=== PATIENT | male | born 1975 | race African-American/Black ===

== ENCOUNTER 2021-02-12 14:51 | Emergency (ER) | payer BC, SELFPAY ==
[2021-02-12 15:03] VITALS: BP 141/88; PULSE 98; RESP 18; TEMP 36.4; O2SAT 98
[2021-02-12 15:25] LABS: Glucose Point of Care 320 mg/dl (65-105)
[2021-02-12 15:50] LABS: Basophils Absolute Auto 0.1 K/mm3 (0.0-0.1); Basophils Percent Auto 0.7 % (0.2-1.2); Eosinophils Absolute Auto 0.3 K/mm3 (0-0.3); Eosinophils Percent Auto 4.2 % (0-4.4); Hemoglobin 13.9 g/dL (14.0-18.0); Immature Granulocyte Absolute 0.06 K/mm3 (0.00-0.031); Immature Granulocyte Percent A 0.8 % (0-0.5); Lymphocytes Absolute Auto 2.44 K/mm3 (0.9-3.2); Lymphocytes Percent Auto 34.1 % (18.3-44.2); Mean Corpuscular HGB Conc 34.8 g/dl (32-36); Mean Corpuscular Hemoglobin 27.8 pg (26-34); Mean Platelet Volume 10.3 fl (7.4-10.4); Monocytes Absolute Auto 0.5 K/mm3 (0.1-0.6); Monocytes Percent Auto 7.1 % (2.6-8.5); Neutrophils Absolute Auto 3.8 K/mm3 (1.3-6.7); Neutrophils Percent Auto 53.1 % (45.5-73.1); Platelet Count Result 205 k/mm3 (150-375); Red Cell Distribution Width 13.2 % (11.5-14.5); White Blood Count 7.2 K/mm3 (4.5-10.0)
--- NOTE | 2021-02-12 15:51 | ED.RECABL ---
HPI - Recheck/Abnormal Lab/Rx General Chief Complaint: Recheck/Abnormal Lab/Rx Stated Complaint: high blood sugar, nausea Time Seen by Provider: 02/12/21 15:15 Source: patient History of Present Illness HPI narrative: Patient presents with elevated blood sugar. Patient ports a history of diabetes on Metformin 1000 twice daily reports he ran out of his test strips about 2 weeks ago so has been able to monitor his blood sugar. Over the past 2 weeks has noted increased thirst and urinary symptoms. His symptoms have persisted he has been able to monitor his blood sugar over the past 2 days and noted his blood sugars in the 300-400 range. He was concerned so he came to the ER for evaluation. Reports mild diffuse abdominal pain denies any cough, congestion, fevers. Denies any pain with urination denies any recent changes to his medication. Related Data Home Medications Medication Instructions Recorded Confirmed atorvastatin 20 mg PO DAILY 02/12/21 02/12/21 lisinopril 20 mg PO DAILY 02/12/21 02/12/21 metformin 1,000 mg PO BID 02/12/21 02/12/21 Allergies Allergy/AdvReac Type Severity Reaction Status Date / Time No Known Allergies Allergy Verified 02/12/21 15:04 Review of Systems Review of Systems: CONSTITUTIONAL: Denies fever, chills, or sweats. EYES: Denies visual changes, redness, or discharge. ENT: Denies rhinorrhea, congestion, sore throat, or otalgia. CARDIOVASCULAR: Denies chest pain, palpitations, or edema. RESPIRATORY: Denies cough or dyspnea. GASTROINTESTINAL: Denies nausea, vomiting, or diarrhea. GENITOURINARY: Denies dysuria or hematuria. SKIN: Denies rash or itching. MUSCULOSKELETAL: Denies back pain, joint pain, or myalgia. NEUROLOGIC: Denies headache, numbness, dizziness, or weakness. PSYCHIATRIC: Denies anxiety or depression. All systems reviewed & are unremarkable except as noted in HPI and below PMFSH Past Medical History Medical History (Updated 02/12/21 @ 18:36 by Markel Barakat MD) Diabetes Social History Social History (Updated 02/12/21 @ 15:58 by Markel Barakat MD) Gender identity (if verbalized by the patient): Male Exam Narrative: GENERAL: Well-appearing, well-nourished, and in no acute distress. HEAD: Normocephalic, atraumatic. EYES: PERRLA and EOMI. ENT: Nares clear, no rhinorrhea or epistaxis. Mucous membranes moist. NECK: Supple. No masses. No JVD ABDOMEN: Soft, nontender, nondistended, normal active bowel sounds. EXTREMITIES: Normal range of motion. No edema. SKIN: Warm, dry, no rash. NEURO: No focal deficits. Alert and oriented x3. PSYCH: Normal mood and affect. Course Reevaluation(s) Reevaluation #1: Patient is feeling much improved labs without evidence of DKA. Patient is comfortable managing his symptoms at home. Attempted to contact medicine business division chair due to schedule close outpatient follow-up however there is no response from page. Patient did not want to wait for a response from the provider because he was feeling improved Date: 02/12/21 Time: 18:27 Vital Signs Vital signs: Vital Signs Temperature 36.4 C 02/12/21 15:03 Pulse Rate 98 02/12/21 15:03 Respiratory Rate 18 02/12/21 15:03 Blood Pressure 141/88 H 02/12/21 15:03 Pulse Oximetry 98 02/12/21 15:03 Temperature 36.4 C 02/12/21 15:03 Pulse Rate 68 02/12/21 18:56 Respiratory Rate 18 02/12/21 18:56 Blood Pressure 119/76 02/12/21 18:56 Pulse Oximetry 98 02/12/21 18:56 MDM - Recheck/Abnormal Lab/Rx MDM Narrative Medical decision making narrative: H&P as above, vss, pt looks clinically well, exam reassuring, labs with hyperglycemia no acidosis, additional labs/img considered, symptomatic relief available as needed, patient treated with fluids. On reevaluation pt continues to looks clinically well with downtrending glucose. Suspect isolated hyperglycemia without evidence of DKA, dns severe sepsis, severe dehydration, DKA, HHS. plan to tx/monitor as op w/ pcm f/u findings/pl
[2021-02-12 16:12] LABS: Alanine Aminotransferase 32 U/L (4-50); Albumin Level 4.6 g/dL (3.5-5.1); Alkaline Phosphatase 62 U/L (38-126); Anion Gap 9 mmol/L (8-16); Aspartate Amino Transferase 26 U/L (17-59); Bilirubin,Total 1.4 mg/dL (0.2-1.3); Blood Urea Nitrogen 13 mg/dL (9-20); Calcium 9.8 mg/dL (8.4-10.2); Carbon Dioxide 25 mmol/L (22-30); Chloride 97 mmol/L (98-107); Estimated CRCL calculation 121 ml/min; Estimated Glomerular Filt Rate > 60; Glucose 347 mg/dL (65-110); Magnesium 1.6 mg/dL (1.6-2.3); Phosphorus 3.4 mg/dL (2.5-4.5); Potassium 4.4 mmol/L (3.4-5.0); Sodium 131 mmol/L (137-145)
[2021-02-12 16:16] LABS: Beta-Hydroxybutyrate/Acetoacetate 0.74 mmol/L (0.02-0.27)
[2021-02-12 16:17] LABS: Add Urine Microscopic? YES; Appearance Urine Clear (Clear); Bilirubin Urine Negative (Negative); Blood Urine 2+ (Negative); Color Urine Straw (Yellow); Glucose Urine UA 3+ mg/dL (Negative); Ketones Urine Trace mg/dL (Negative); Leukocyte Esterase Ur Negative LEU/UL (Negative); Mucus Urine Rare /lpf; Nitrate Urine Negative (Negative); Protein Urine Negative (Negative); RBC Urine 0-2 /hpf (0-2); Specific Grav Ur 1.017 (1.001-1.035); Squamous Epithelial Cell Urine Rare /hpf (Few); Urobilinogen Urine Negative mg/dL (<2.0); WBC Urine 0-3 /hpf
[2021-02-12] MEDS: SODIUM CHLORIDE 0.9% IV 1,000 ML 999 ML IV CONT ×3 (16:22→16:23)
[2021-02-12 17:14] VITALS: BP 126/71; PULSE 93; RESP 16; O2SAT 100
[2021-02-12 17:44] LABS: Glucose Point of Care 219 mg/dl (65-105)
[2021-02-12 18:56] VITALS: BP 119/76; PULSE 68; RESP 18; O2SAT 98
== END 2021-02-12 18:58 | disposition home or self-care (01) ==
PROVIDERS: Emergency Provider Emergency Medicine
DX: E11.65 Type 2 diabetes mellitus with hyperglycemia (principal); Z79.84 Long term (current) use of oral hypoglycemic drugs
CPT/HCPCS: 36415; 80053; 81001; 82010; 82948; 83735; 84100; 85025; 96360; 99283; J7030

== ENCOUNTER 2022-02-04 11:19 | Emergency (ER) | payer BC, SELFPAY ==
--- NOTE | ~2022-02-04 | XR_ITS ---
EXAMINATION: XR wrist RT min 3V DATE: 02/04/2022 12:35 INDICATION: Right wrist pain post injury TECHNIQUE: Posteroanterior, ulnar deviation, oblique, and lateral views of the right wrist were obtai wendy. COMPARISON: none FINDINGS: 2 mm ulnar positive variance. Alignment is otherwise normal. No fracture. Joint spaces are normal. So ft tissues are unremarkable. IMPRESSION: 1. No acute osseous abnormality. Reviewed, dictated and finalized at location A. [facility]
--- NOTE | ~2022-02-04 | CT_ITS ---
EXAMINATION: CT brain wo con, CT facial bones wo con DATE: 02/04/2022 12:44 INDICATION: Trauma and facial injury TECHNIQUE: 1. Computed tomography (CT) of the head was performed without intravenous contrast. Sagittal and johnson nal reconstructions were obtained. The mA was adjusted according to patient size. Iterative reconstru ction technique was employed. The dose-length product was 605.33 mGy-cm. 2. CT of the facial bones and maxillofacial region was performed without intravenous contrast. Sagitt al and coronal reconstructions were obtained. Automated exposure control and iterative reconstruction technique were employed. The dose-length product was 778.65 mGy-cm. COMPARISON: None. FINDINGS: Head CT: Small right parietal scalp hematoma. No calvarial fracture. No acute intracranial hemorrhage, acute i nfarction or abnormal extra axial fluid collection. Ventricles are normal and symmetric. No mass/mass effect. Maxillofacial CT: No maxillofacial fractures. Specifically the mason of the orbits and paranasal sinuses, the zygomatic arches, mandible, nasal bones and pterygoid plates are intact. The midline nasal septum appears inta ct. Normal alignment and mild osteoarthritis at the bilateral temporomandibular joints. Orbits are no rmal. Mild mucosal thickening in the bilateral ethmoid and maxillary sinuses. The mastoid air cells a nd middle ear cavities are clear. Maxilla is edentulous with alveolar ridge resorption. There are als o multiple absent teeth along the mandible. Mild spondylosis in the visualized mid to upper cervical spine. Soft tissue contusions in the the lateral malleolar regions. IMPRESSION: 1. Normal brain. No acute intracranial process. 2. No calvarial or maxillofacial fractures. Reviewed, dictated and finalized at location A. NESS LAW PROFESSOR IMPRESSION: 1. Normal brain. No acute intracranial process. 2. No calvarial or maxillofacial fractures.
[2022-02-04 11:22] VITALS: BP 155/89; PULSE 98; RESP 16; O2SAT 99
[2022-02-04 11:31] LABS: Glucose Point of Care 233 mg/dl (65-105)
--- NOTE | 2022-02-04 12:27 | ED.GENADULT ---
HPI - General Adult General Chief complaint: Extremity Injury, Upper Stated complaint: facial injury Time Seen by Provider: 02/04/22 11:54 History of Present Illness HPI narrative: 46-year-old male presented to the emergency department for evaluation of a facial injury with possible loss of consciousness along with a wrist injury. Patient states he was working with a hammer drill when it jumped and struck him on the face. Patient states he suspects he had a brief period of loss of consciousness. Incident happened at approximately 1040 this morning. Related Data Home Medications Medication Instructions Recorded Confirmed atorvastatin 10 mg tablet 20 mg PO DAILY 02/12/21 02/12/21 lisinopril 10 mg tablet 20 mg PO DAILY 02/12/21 02/12/21 metformin 1,000 mg tablet 1,000 mg PO BID 02/12/21 02/12/21 Allergies Allergy/AdvReac Type Severity Reaction Status Date / Time No Known Allergies Allergy Verified 02/12/21 15:04 Review of Systems Review of Systems: CONSTITUTIONAL: Denies fever, chills, or sweats. EYES: Denies visual changes, redness, or discharge. ENT: Denies rhinorrhea, congestion, sore throat, or otalgia. CARDIOVASCULAR: Denies chest pain, palpitations, or edema. RESPIRATORY: Denies cough or dyspnea. GASTROINTESTINAL: Denies abdominal pain, nausea, vomiting, or diarrhea. GENITOURINARY: Denies dysuria or hematuria. SKIN: Abrasions to right side of face MUSCULOSKELETAL: Right wrist pain NEUROLOGIC: Denies headache, numbness, or weakness. PMFSH Past Medical History Medical History (Updated 02/04/22 @ 13:27 by Colton Avalos MD) Diabetes Social History Social History (Updated 02/12/21 @ 15:58 by Markel Barakat MD) Gender identity (if verbalized by the patient): Male Exam Narrative: APPEARANCE: Well appearing, no pain, no distress, well-nourished. HEAD: normocephalic, abrasions and contusions to right face. EYES: PERRLA/EOMI, conjunctivae clear. NOSE: Normal no drainage NECK: Supple. No adenopathy, no masses. RESPIRATORY: Airway patent, respirations nonlabored. Clear to auscultation bilaterally, no rales, rhonchi, wheezing. CARDIOVASCULAR: Regular rate and rhythm without murmurs rubs or gallops. ABDOMINAL: Soft, nontender, nondistended, normal bowel sounds MUSCULOSKELETAL: Moves all extremities. Limited range of motion of right wrist. Some tenderness to palpation. Mild swelling just proximal to the wrist. NEURO: Alert. Cranial nerves II through XII intact. Grossly intact SKIN: Warm, dry. Normal Color Course Course Emergency Course: Patient had negative CTs and negative wrist x-ray. Patient was able to ambulate in the emergency department without issue. Patient was encouraged of close follow-up with his primary care physician. All questions and concerns were addressed. Vital Signs Vital signs: Vital Signs Pulse Rate 98 02/04/22 11:22 Respiratory Rate 16 02/04/22 11:22 Blood Pressure 155/89 H 02/04/22 11:22 Pulse Oximetry 99 02/04/22 11:22 Oxygen Delivery Room Air 02/04/22 11:22 Pulse Rate 71 02/04/22 14:18 Respiratory Rate 16 02/04/22 14:18 Blood Pressure 118/75 02/04/22 14:18 Pulse Oximetry 99 02/04/22 14:18 Oxygen Delivery Room Air 02/04/22 11:22 Medical Decision Making Vital Signs Vital Signs: Vital Signs Pulse Rate 98 02/04/22 11:22 Respiratory Rate 16 02/04/22 11:22 Blood Pressure 155/89 H 02/04/22 11:22 Pulse Oximetry 99 02/04/22 11:22 Oxygen Delivery Room Air 02/04/22 11:22 Pulse Rate 71 02/04/22 14:18 Respiratory Rate 16 02/04/22 14:18 Blood Pressure 118/75 02/04/22 14:18 Pulse Oximetry 99 02/04/22 14:18 Oxygen Delivery Room Air 02/04/22 11:22 Lab Data Labs: Lab Results 02/04/22 Range/Units 11:28 POC Capillary Glucose 233 H (65-105) mg/dl Imaging Data Radiologist's impression: Impressions Face CT 02/04/22 12:54 IMPRESSION: 1. Normal brain. No acute intracr
--- NOTE | 2022-02-04 13:10 | PC.NURSE ---
Patient has a small laceration to the right side of his face by his eye after a piece of machinery hit him. Bleeding is controlled. Minor swelling noted. Patient also has some swelling to the right wrist/forearm.
[2022-02-04 13:18] VITALS: O2SAT 100
[2022-02-04 13:30] VITALS: O2SAT 99
[2022-02-04 13:47] VITALS: O2SAT 99
[2022-02-04 14:00] VITALS: O2SAT 98
[2022-02-04 14:18] VITALS: BP 118/75; PULSE 71; RESP 16; O2SAT 99
== END 2022-02-04 14:19 | disposition home or self-care (01) ==
LOC: ANHED 13:38
PROVIDERS: Emergency Provider Emergency Medicine
DX: S00.83XA Contusion of other part of head, initial encounter (principal); S69.91XA Unspecified injury of right wrist, hand and finger(s), initial encounter; E11.9 Type 2 diabetes mellitus without complications; Z79.84 Long term (current) use of oral hypoglycemic drugs; W29.8XXA Contact with other powered hand tools and household machinery, initial encounter
CPT/HCPCS: 70450; 70486; 73110; 82948; 99284

== ENCOUNTER 2022-04-22 07:47 | Emergency (ER) | payer BC, SELFPAY ==
--- NOTE | ~2022-04-22 | CT_ITS ---
EXAMINATION: CT lumbar spine wo con DATE: 04/22/2022 09:03 INDICATION: Low back pain TECHNIQUE: Computed tomography (CT) of the lumbar spine was performed without intravenous contrast. T he dose-length product (DLP) was 1347.56 mGy-cm. Iterative reconstruction was used. COMPARISON: None FINDINGS: Bone alignment is normal. There is no fracture. There is mild loss of intervertebral disc s pace height at L5-S1. Small degenerative osteophytes project from the anterior endplates of multiple vertebral bodies. Calcified atherosclerosis is noted. IMPRESSION: 1. Mild lumbar spondylosis without acute findings. Reviewed, dictated and finalized at location A. F SERVICE DISPATCHER
[2022-04-22 07:52] VITALS: BP 171/111; PULSE 87; RESP 20; TEMP 36.8; O2SAT 100
[2022-04-22] MEDS: HYDROcodone/acetaminophen (*CRX) 5-325 MG TABLET 1 TAB PO (08:23)
--- NOTE | 2022-04-22 09:23 | ED.BACK ---
HPI - Back Pain/Injury General Chief Complaint: Extremity Problem,Nontraumatic Stated Complaint: back pain Time Seen by Provider: 04/22/22 07:52 History of Present Illness HPI Narrative: Patient with history of spinal surgery for lumbar radiculopathy about 6 years ago presents with recurrence of his symptoms, he states has been ongoing for a few days, but yesterday got really bad, he has been taking ibuprofen with only minimal improvement, states that it seems to radiate from his lower back down his right leg, no numbness or tingling, no issues with urination or defecation. Denies any recent injury Related Data Home Medications Medication Instructions Recorded Confirmed atorvastatin 10 mg tablet 20 mg PO DAILY 02/12/21 02/12/21 lisinopril 10 mg tablet 20 mg PO DAILY 02/12/21 02/12/21 metformin 1,000 mg tablet 1,000 mg PO BID 02/12/21 02/12/21 Allergies Allergy/AdvReac Type Severity Reaction Status Date / Time No Known Allergies Allergy Verified 04/22/22 07:57 Review of Systems Review of Systems: CONST: No fever. HEENT: No sore throat C/V: No chest pain RESP: No cough GI: No abdominal pain : No dysuria. M/S: Low back pain down right leg SKIN: No rash. NEURO: [No headache or focal numbness or weakness] PSYCH: [No depression] [facility] Past Medical History Medical History (Updated 04/22/22 @ 09:27 by Thu Baeza MD) Diabetes Surgical History Surgical History (Updated 04/22/22 @ 09:27 by Thu Baeza MD) H/O lumbosacral spine surgery Social History Social History Gender identity (if verbalized by the patient): Male Exam Narrative: EXAMINATION OF ORGAN SYSTEMS/BODY AREAS: Constitutional: Vital signs per nursing GENERAL: Appears uncomfortable in bed HEAD: Normal with no signs of head trauma. EYES: EOMI, conjunctiva normal ENT: Hearing grossly intact LUNGS: Nonlabored breathing. HEART: [Regular rate and rhythm] ABD: [Soft], [nontender to palpation] EXT: Normal range of motion no elicitation of pain with movement of right leg SKIN: [No rashes or lesions.] NEURO: [Alert and oriented x 3. No gross focal sensory or strength deficits.] PSYCH: Normal affect Course Vital Signs Vital signs: Vital Signs Temperature 98.3 F 04/22/22 07:52 Pulse Rate 87 04/22/22 07:52 Respiratory Rate 20 04/22/22 07:52 Blood Pressure 171/111 H 04/22/22 07:52 Pulse Oximetry 100 04/22/22 07:52 Oxygen Delivery Room Air 04/22/22 07:52 Temperature 98.3 F 04/22/22 07:52 Pulse Rate 87 04/22/22 07:52 Respiratory Rate 20 04/22/22 07:52 Blood Pressure 171/111 H 04/22/22 07:52 Pulse Oximetry 100 04/22/22 07:52 Oxygen Delivery Room Air 04/22/22 07:52 MDM - Back Pain/Injury MDM Narrative Medical decision making narrative: ED COURSE AND MEDICAL DECISION MAKIN-year-old male with acute back pain radiating down right leg. Normal motor and sensory exam. Patient able to ambulate. No evidence of acute cord compression, osteomyelitis/discitis or cauda equina without saddle anesthesia, urinary retention/incontinence, numbness/tingling in lower extremities, fever, history of IV drug use, cancer or immunosuppression. Doubt AAA or aortic dissection without severe pain/discomfort or any neurovascular deficits. 5 mg [place] given for symptomatic relief. As he has had surgery in the lumbar spine in the past, I did obtain imaging. Does not show any acute abnormality. On reevaluation, the symptoms are improved. Patient is able to rest more comfortably. [I discussed management of acute back pain in detail, explaining the need to remain active and the goals of pain control.] Patient is given follow-up information to spine surgeon and primary care doctor, as well as return precautions and instructed to come back at any point in time for worsening pain, fevers, weakness, difficulty walking, urinary or fecal incontinence. Patient expressed understandin
[2022-04-22 09:56] VITALS: BP 138/81; PULSE 81; RESP 14; O2SAT 100
== END 2022-04-22 09:56 | disposition home or self-care (01) ==
PROVIDERS: Emergency Provider Emergency Medicine
DX: M54.16 Radiculopathy, lumbar region (principal); E11.9 Type 2 diabetes mellitus without complications
CPT/HCPCS: 72131; 99284; A9270

== ENCOUNTER 2023-11-02 10:20 | Emergency (ER) | payer BC, SELFPAY ==
[2023-11-02] VITALS (14 sets, daily range): BP systolic 117–133; BP diastolic 76–85; PULSE 81–103; RESP 15–18; TEMP 36.7–37; O2SAT 95–100
--- NOTE | ~2023-11-02 | CT_ITS ---
CT abdomen pelvis w con Ordering provider: Colton Avalos MD History: 47 years Male with . Suprapubic abdominal pain . Comparison: None. Technique: CT abdomen and pelvis with IV and without oral contrast. Automated exposure control and it erative reconstruction technique were employed. The dose-length product was 1349.60 mGy-cm. 100 mL Om nipaque 350 was given IV. Findings: VISUALIZED LOWER CHEST: Dependent atelectatic changes. UPPER ABDOMINAL ORGANS: Liver: Normal. CBD measures 3 mm. Gallbladder: Distended with thickened wall and tiny calcifications in the wall. Spleen: Normal. Stomach/duodenum: Normal. Pancreas: Prominent pancreatic duct. Follow-up advised. Adrenals: Normal. Kidneys: Right kidney upper pole small cyst. Small Cyst in the left kidney lower pole. PELVIC ORGANS: The bladder is underfilled. Evaluation for cystitis advised. BOWEL AND MESENTERY: Colon: No evidence of diverticulitis. Normal appendix. Small Bowel: Fluid filled loops of small bowel which may indicate enteritis but otherwise normal. No obstruction. Peritoneum/mesentery: No free air or free fluid. No mesenteric lymphadenopathy. RETROPERITONEUM: Mild atheromatous disease of the abdominal aorta. No retroperitoneal lymphadenopat hy. MUSCULOSKELETAL: Superficial soft tissues: The superficial soft tissues are normal. Bones: Age appropriate degenerative changes of the spine. Bilateral sacroiliitis. IMPRESSION: 1. Distended gallbladder with calcification seen in the wall. Follow-up advised. 2. No evidence of appendicitis, diverticulitis or intestinal obstruction. 3. Few osseous small bowel loops filled with fluid which may indicate enteritis. Diarrhea also is po ssible although less likely. 4. Slightly prominent pancreatic duct. Follow-up advised. Slightly prominent CBD Reviewed, dictated and finalized at location A. IMPRESSION: 1. Distended gallbladder with calcification seen in the wall. Follow-up advise d. 2. No evidence of appendicitis, diverticulitis or intestinal obstruction. 3. Few osseous small bowel loops filled with fluid which may indicate enteriti s. Diarrhea also is possible although less likely. 4. Slightly prominent pancreatic duct. Follow-up advised. Slightly prominent C BD
--- NOTE | 2023-11-02 12:13 | ED.ABDPAIN ---
HPI - Abdominal Pain General Chief Complaint: Abdominal Pain Stated Complaint: Lower abd pain Time Seen by Provider: 11/02/23 11:23 History of Present Illness HPI narrative: 47-year-old male presenting to the emergency department for evaluation for 1 week suprapubic abdominal pain. Patient does work as a hi low truck driver and states that when he presses the gas pedal it also hurts his abdomen. Patient denies any associated nausea or vomiting. Patient reports a possible history of cholelithiasis or kidney stones Related Data Home Medications Medication Instructions Recorded Confirmed atorvastatin 10 mg tablet 20 mg PO DAILY 02/12/21 02/12/21 lisinopril 10 mg tablet 20 mg PO DAILY 02/12/21 02/12/21 metformin 1,000 mg tablet 1,000 mg PO BID 02/12/21 02/12/21 Allergies Allergy/AdvReac Type Severity Reaction Status Date / Time No Known Allergies Allergy Verified 04/22/22 07:57 Review of Systems Review of Systems: All systems reviewed & are unremarkable except as noted in HPI and below PMFSH Past Medical History Medical History (Updated 11/02/23 @ 14:35 by Colton Avalos MD) Diabetes Surgical History Surgical History (Updated 04/22/22 @ 09:27 by Thu Baeza MD) H/O lumbosacral spine surgery Social History Social History Gender identity (if verbalized by the patient): Male Exam Narrative: APPEARANCE: Well appearing, no pain, no distress, well-nourished. HEAD: normocephalic, atraumatic. EYES: PERRLA/EOMI, conjunctivae clear. NOSE: Normal no drainage EARS:TMS clear with good light reflex. THROAT: Pharynx clear, no exudate. NECK: Supple. No adenopathy, no masses. RESPIRATORY: Airway patent, respirations nonlabored. Clear to auscultation bilaterally, no rales, rhonchi, wheezing. CARDIOVASCULAR: Regular rate and rhythm without murmurs rubs or gallops. ABDOMINAL: Suprapubic abdominal pain MUSCULOSKELETAL: Moves all extremities. Strength/ROM intact, No edema, No calf tenderness. NEURO: Alert. Cranial nerves II through XII intact. Grossly intact SKIN: Warm, dry. Normal Color Course Course Emergency Course: Patient was offered admission but declined. Vital Signs Vital signs: Vital Signs Temperature 98.6 F 11/02/23 10:40 Pulse Rate 81 11/02/23 10:40 Respiratory Rate 18 11/02/23 10:40 Blood Pressure 117/76 11/02/23 10:40 Pulse Oximetry 100 11/02/23 10:40 Oxygen Delivery Room Air 11/02/23 10:40 Temperature 98.0 F 11/02/23 11:46 Pulse Rate 84 11/02/23 15:50 Respiratory Rate 16 11/02/23 15:50 Blood Pressure 126/76 11/02/23 15:50 Pulse Oximetry 100 11/02/23 15:50 Oxygen Delivery Room Air 11/02/23 11:46 MDM - Abdominal Pain MDM Narrative Medical decision making narrative: 37-year-old male present to the emergency department for evaluation for lower abdominal pain. Patient is afebrile with no leukocytosis and a stable hemoglobin of 14.3. Patient has no acute abnormalities on his CMP T bili is mildly elevated at 1.9 and patient does have elevated glucose. Patient's lipase is elevated at 2458. Urine was negative for infection. CT abdomen pelvis showed 1. Distended gallbladder with calcification seen in the wall. Follow-up advised. 2. No evidence of appendicitis, diverticulitis or intestinal obstruction. 3. Few osseous small bowel loops filled with fluid which may indicate enteritis. Diarrhea also is possible although less likely. Patient was offered admission for treatment for his pancreatitis and patient declined. And re-examination patient has no reproducible abdominal tenderness to palpation. Patient states he does have follow-up on Sunday with his primary care physician. Patient was strongly encouraged to return to the emergency department if you have any worsening symptoms. Patient was advised to follow a clear liquid diet for the next few days and patient will be provided Zofran for nausea contro
[2023-11-02 12:19] LABS: Basophils Absolute Auto 0.1 K/mm3 (0.0-0.1); Basophils Percent Auto 0.9 % (0.2-1.2); Eosinophils Absolute Auto 0.4 K/mm3 (0-0.3); Eosinophils Percent Auto 5.6 % (0-4.4); Hematocrit 42.3 % (42.0-52.0); Hemoglobin 14.3 g/dL (14.0-18.0); Immature Granulocyte Absolute 0.03 K/mm3 (0.00-0.031); Immature Granulocyte Percent A 0.5 % (0-0.5); Lymphocytes Absolute Auto 2.05 K/mm3 (0.9-3.2); Lymphocytes Percent Auto 31.7 % (18.3-44.2); Mean Corpuscular HGB Conc 33.8 g/dl (32-36); Mean Corpuscular Hemoglobin 28.2 pg (26-34); Mean Corpuscular Volume 83.4 fl (80-100); Mean Platelet Volume 9.8 fl (7.4-10.4); Monocytes Absolute Auto 0.5 K/mm3 (0.1-0.6); Monocytes Percent Auto 8.2 % (2.6-8.5); Neutrophils Absolute Auto 3.4 K/mm3 (1.3-6.7); Neutrophils Percent Auto 53.1 % (45.5-73.1); Platelet Count Result 195 k/mm3 (150-375); Red Blood Count 5.07 M/mm3 (4.6-6.20); Red Cell Distribution Width 13.3 % (11.5-14.5); White Blood Count 6.5 K/mm3 (4.5-10.0)
[2023-11-02 12:20] LABS: Add Urine Microscopic? NO; Appearance Urine Clear (Clear); Bilirubin Urine Negative (Negative); Blood Urine Negative (Negative); Color Urine Yellow (Yellow); Glucose Urine UA 3+ mg/dL (Negative); Ketones Urine Negative (Negative); Leukocyte Esterase Ur Negative LEU/UL (Negative); Nitrate Urine Negative (Negative); Protein Urine Negative (Negative); Specific Grav Ur 1.015 (1.001-1.035); pH Urine 6.5 (5.0-9.0)
[2023-11-02 12:36] LABS: Alanine Aminotransferase 29 U/L (6-50); Albumin Level 4.2 g/dL (3.5-5.1); Alkaline Phosphatase 63 U/L (38-126); Anion Gap 9 mmol/L (4-12); Aspartate Amino Transferase 26 U/L (17-59); Bilirubin,Total 1.9 mg/dL (0.2-1.3); Blood Urea Nitrogen 12 mg/dL (9-20); Calcium 9.1 mg/dL (8.4-10.2); Carbon Dioxide 25 mmol/L (22-30); Chloride 102 mmol/L (98-107); Estimated CRCL calculation 84 ml/min; Estimated Glomerular Filt Rate > 60; Glucose 121 mg/dL (65-110); Potassium 4.3 mmol/L (3.4-5.0); Sodium 136 mmol/L (137-145)
[2023-11-02 12:50] LABS: Lipase 2458 U/L (23-300)
[2023-11-02] MEDS: SODIUM CHLORIDE 0.9% IV 1,000 ML 999 ML IV CONT (13:46)
[2023-11-02] MEDS: HYDROmorphone HCL INJ (*CRX) 1 MG/ML SYR 0.5 MG IV PUSH (13:46)
== END 2023-11-02 16:09 | disposition home or self-care (01) ==
PROVIDERS: Emergency Provider Emergency Medicine; PCP Family Medicine
DX: K85.90 Acute pancreatitis without necrosis or infection, unspecified (principal); R19.7 Diarrhea, unspecified; R10.30 Lower abdominal pain, unspecified; E11.9 Type 2 diabetes mellitus without complications; Z79.899 Other long term (current) drug therapy; Z79.84 Long term (current) use of oral hypoglycemic drugs; K82.8 Other specified diseases of gallbladder
CPT/HCPCS: 36415; 74177; 80053; 81003; 83690; 85025; 96361; 96374; 99284; J1170; J7030; Q9967

== ENCOUNTER 2023-11-04 18:38 | Emergency (ER) | payer BC, SELFPAY ==
--- NOTE | ~2023-11-04 | CT_ITS ---
EXAMINATION: CT abdomen pelvis w con DATE: 11/04/2023 21:15 INDICATION: Lower abdominal pain. TECHNIQUE: Computed tomography (CT) of the abdomen and pelvis was performed without intravenous contr ast. Automated exposure control and iterative reconstruction technique were employed. Exam dose: 151 8.09 mGy-cm total exam DLP. COMPARISON: 11/02/2023 CT abdomen pelvis FINDINGS: Borderline thickness of the gallbladder wall. No pericholecystic fluid or fat stranding. No bile duct or pancreatic duct dilatation. No hepatic, splenic, pancreatic mass lesion or pancreatic calcification. No CT evidence of pancreatit is. Normal morphology of the adrenal glands. 12 mm upper pole right renal cyst. 14 mm lower pole left renal cyst. No urinary tract calculi or hydr oureteronephrosis. Urinary bladder and prostate gland are unremarkable. Normal caliber and mild calcification of the abdominal aorta. No intraperitoneal or retroperitoneal o r pelvic mass lesion or adenopathy or ascites is detected. Normal appendix. No bowel obstruction, bowel wall thickening, pneumatosis or intraperitoneal free air. No suspicious osteolytic or osteoblastic lesions. IMPRESSION: Borderline thickness of the gallbladder wall No CT evidence of pancreatitis Bilateral renal cysts Normal appendix Reviewed, dictated and finalized at Location A. Reviewed, dictated and finalized at location J.
[2023-11-04 18:38] VITALS: BP 146/89; PULSE 78; RESP 14; TEMP 36.2; O2SAT 100
[2023-11-04 19:31] VITALS: BP 134/90; PULSE 81; RESP 18; O2SAT 100
[2023-11-04 20:25] LABS: Basophils Absolute Auto 0.1 K/mm3 (0.0-0.1); Basophils Percent Auto 0.8 % (0.2-1.2); Eosinophils Absolute Auto 0.4 K/mm3 (0-0.3); Eosinophils Percent Auto 5.1 % (0-4.4); Hematocrit 41.8 % (42.0-52.0); Hemoglobin 14.1 g/dL (14.0-18.0); Immature Granulocyte Absolute 0.03 K/mm3 (0.00-0.031); Immature Granulocyte Percent A 0.4 % (0-0.5); Lymphocytes Absolute Auto 2.64 K/mm3 (0.9-3.2); Lymphocytes Percent Auto 34.4 % (18.3-44.2); Mean Corpuscular HGB Conc 33.7 g/dl (32-36); Mean Corpuscular Hemoglobin 28.2 pg (26-34); Mean Corpuscular Volume 83.6 fl (80-100); Mean Platelet Volume 9.4 fl (7.4-10.4); Monocytes Absolute Auto 0.7 K/mm3 (0.1-0.6); Monocytes Percent Auto 9.4 % (2.6-8.5); Neutrophils Absolute Auto 3.8 K/mm3 (1.3-6.7); Neutrophils Percent Auto 49.9 % (45.5-73.1); Platelet Count Result 207 k/mm3 (150-375); Red Cell Distribution Width 12.9 % (11.5-14.5); White Blood Count 7.7 K/mm3 (4.5-10.0)
[2023-11-04 20:28] LABS: Add Urine Microscopic? NO; Appearance Urine Clear (Clear); Bilirubin Urine Negative (Negative); Blood Urine Negative (Negative); Color Urine Yellow (Yellow); Glucose Urine UA 3+ mg/dL (Negative); Ketones Urine Negative (Negative); Leukocyte Esterase Ur Negative LEU/UL (Negative); Nitrate Urine Negative (Negative); Protein Urine Negative (Negative); Specific Grav Ur 1.014 (1.001-1.035)
[2023-11-04 20:34] LABS: Alanine Aminotransferase 25 U/L (6-50); Albumin Level 4.1 g/dL (3.5-5.1); Alkaline Phosphatase 61 U/L (38-126); Anion Gap 8 mmol/L (4-12); Aspartate Amino Transferase 23 U/L (17-59); Bilirubin,Total 1.8 mg/dL (0.2-1.3); Blood Urea Nitrogen 5 mg/dL (9-20); Calcium 9.2 mg/dL (8.4-10.2); Carbon Dioxide 26 mmol/L (22-30); Chloride 104 mmol/L (98-107); Estimated CRCL calculation 91 ml/min; Estimated Glomerular Filt Rate > 60; Glucose 88 mg/dL (65-110); Lipase 1519 U/L (23-300); Potassium 3.9 mmol/L (3.4-5.0); Sodium 138 mmol/L (137-145)
[2023-11-04] MEDS: KETOROLAC 15 MG/ML VIAL (*BKC) IV PUSH (21:02)
[2023-11-04] MEDS: DICYCLOMINE HCL INJ 20 MG/2 ML VIAL IM (21:02)
--- NOTE | 2023-11-04 22:14 | ED.GENADULT ---
HPI - General Adult General Chief complaint: Abdominal Pain Stated complaint: pancreatitis Time Seen by Provider: 11/04/23 20:13 History of Present Illness HPI narrative: This is a 47-year-old ED with a chief complaint of lower abdominal pain. He was seen here 2 days ago and his workup was consistent with enteritis. He had a mildly elevated lipase although no clinical symptoms of pancreatitis like epigastric pain at that time. He was discharged with return precautions and placed on a liquid diet. Since then he has still been having some intermittent crampy lower abdominal pain is having watery diarrhea. No fevers chills chest pain breathing nausea or vomiting. The patient says he is very hungry. Related Data Home Medications Medication Instructions Recorded Confirmed atorvastatin 10 mg tablet 20 mg PO DAILY 02/12/21 02/12/21 lisinopril 10 mg tablet 20 mg PO DAILY 02/12/21 02/12/21 metformin 1,000 mg tablet 1,000 mg PO BID 02/12/21 02/12/21 Allergies Allergy/AdvReac Type Severity Reaction Status Date / Time No Known Allergies Allergy Verified 04/22/22 07:57 [facility] Past Medical History Medical History (Updated 11/04/23 @ 22:18 by Valetnin Bailon MD) Diabetes Surgical History Surgical History (Updated 04/22/22 @ 09:27 by Thu Baeza MD) H/O lumbosacral spine surgery Social History Social History Gender identity (if verbalized by the patient): Male Exam Narrative: APPEARANCE: No apparent distress. Head: atraumatic. EYES: EOMI, NOSE: Atraumatic NECK: Trachea midline RESPIRATORY: No increased rate of breathing clear to auscultation CARDIOVASCULAR: RRR, ABDOMINAL: Non-distended soft nontender no guarding or rebound MUSCULOSKELETAl: No obvious deformities NEURO: Alert. Moving 4/4 extremities SKIN:: Warm, dry. Normal color PSYCHIATRIC: Normal affect Course Vital Signs Vital signs: Vital Signs Temperature 97.1 F L 11/04/23 18:38 Pulse Rate 78 11/04/23 18:38 Respiratory Rate 14 11/04/23 18:38 Blood Pressure 146/89 H 11/04/23 18:38 Pulse Oximetry 100 11/04/23 18:38 Oxygen Delivery Room Air 11/04/23 18:38 Temperature 97.1 F L 11/04/23 18:38 Pulse Rate 81 11/04/23 19:31 Respiratory Rate 18 11/04/23 19:31 Blood Pressure 134/90 11/04/23 19:31 Pulse Oximetry 100 11/04/23 19:31 Oxygen Delivery Room Air 11/04/23 18:38 Medical Decision Making MDM Narrative Medical decision making narrative: -Course: 47-year-old male presenting to the ED for abdominal pain. Patient given Toradol and dicyclomine please pain. Repeat lab work showed an improving lipase. CT is unremarkable. Patient has no clinical signs of pancreatitis. Presentation consistent with enteritis given his diarrhea. Patient was informed of results and is requesting immediate discharge that he can go home and eat dinner. Patient discharged return precautions. Patient is requesting a work note. -DDX includes but is not limited to: Enteritis, pancreatitis, colitis UTI -Co-morbidities complicating care: Hypertension, diabetes -Independent interpretation of studies: Labs reviewed Lipase down trending. Liver enzymes normal. CT abdomen pelvis unremarkable -Interventions: Toradol, dicyclomine -Shared decision making / Disposition: Discharged Vital Signs Vital Signs: Vital Signs Temperature 97.1 F L 11/04/23 18:38 Pulse Rate 78 11/04/23 18:38 Respiratory Rate 14 11/04/23 18:38 Blood Pressure 146/89 H 11/04/23 18:38 Pulse Oximetry 100 11/04/23 18:38 Oxygen Delivery Room Air 11/04/23 18:38 Temperature 97.1 F L 11/04/23 18:38 Pulse Rate 81 11/04/23 19:31 Respiratory Rate 18 11/04/23 19:31 Blood Pressure 134/90 11/04/23 19:31 Pulse Oximetry 100 11/04/23 19:31 Oxygen Delivery Room Air 11/04/23 18:38 Lab Data 11/04/23 20:16 11/04/23 20:16 Labs: Lab R
[2023-11-04 22:40] VITALS: BP 137/80; PULSE 74; RESP 20; TEMP 36.7; O2SAT 100
== END 2023-11-04 22:45 | disposition home or self-care (01) ==
PROVIDERS: Physician Assistant; Emergency Provider Emergency Medicine; PCP Family Medicine
DX: K52.9 Noninfective gastroenteritis and colitis, unspecified (principal); E11.9 Type 2 diabetes mellitus without complications; Z79.84 Long term (current) use of oral hypoglycemic drugs; Z79.899 Other long term (current) drug therapy; N28.1 Cyst of kidney, acquired; R93.2 Abnormal findings on diagnostic imaging of liver and biliary tract
CPT/HCPCS: 36415; 74177; 80053; 81003; 83690; 85025; 96372; 96374; 99284; J0500; J1885; Q9967

== ENCOUNTER 2024-06-13 02:33 | Emergency (ER) | payer BC, SELFPAY ==
--- NOTE | ~2024-06-13 | US_ITS ---
EXAMINATION: US abdomen limited DATE: 06/13/2024 07:51 INDICATION: Abdominal pain. TECHNIQUE: Multiple grayscale and Doppler ultrasound images of the abdomen were obtained. COMPARISON: CT abdomen and pelvis 06/13/2024, 11/04/23 FINDINGS: The pancreas is obscured by bowel gas. The liver is normal without focal lesion. There is n ormal flow in main portal vein. The gallbladder is distended and contains gallstones. Gallbladder wal l thickening is noted. There is no sonographic Brown's sign. The common duct is normal and measures 5 mm. IMPRESSION: 1. Distended gallbladder with gallstones and gallbladder wall thickening, which are chronic findings and may be chronic cholecystitis. No sonographic Brown's sign to suggest acute cholecystitis. Consid er hepatobiliary scintigraphy. Reviewed, dictated and finalized at location A. IMPRESSION: 1. Distended gallbladder with gallstones and gallbladder wall thickening, which are chronic findings and may be chronic cholecystitis. No sonographic Brown's sign to suggest acute cholecystitis. Consider hepatobiliary scintigraphy.
--- NOTE | ~2024-06-13 | CT_ITS ---
EXAMINATION: CT abdomen pelvis w con DATE: 06/13/2024 04:02 INDICATION: Low abdominal pain. Pelvic pain. TECHNIQUE: Computed tomography (CT) of the abdomen and pelvis was performed with 100 mL Omnipaque 350 intravenous contrast. Automated exposure control and iterative reconstruction technique were employe d. The dose-length product was 1797.80 mGy-cm. COMPARISON: CT abdomen and pelvis 11/04/2023 FINDINGS: The visualized portions of the lung bases demonstrate minimal atelectasis on the right. No pleural effusion. The heart size is normal. No pericardial effusion. There are coronary artery calcif ications. There is bilateral gynecomastia. The liver and spleen are normal. Again seen is gallbladder distention. Again seen is wall thickening of the gallbladder with calcifications (porcelain gallblad attila). The pancreas and adrenal glands are normal. There are cysts in the kidneys measuring up to 16 m m on the left. There are no dilated loops of bowel. The appendix is normal. There are no pathological ly enlarged lymph nodes. There is no free intraperitoneal fluid. There is mild thoracic and lumbar sp ondylosis. IMPRESSION: 1. Porcelain gallbladder. Gallbladder distention again seen, which may be acute or chronic cholecysti tis. Reviewed, dictated and finalized at location A. IMPRESSION: 1. Porcelain gallbladder. Gallbladder distention again seen, which may be acute or chronic cholecystitis.
--- OUTSIDE RECORDS SUMMARY | 2024-06-13 02:35 | XMS_ITS | Referral Summary ---
Author Organization [facility] Address [address] [place] [address] Phone Care Team Providers Care Flow Manager Name Role Phone Shama Patel NP Unavailable Jordy Parra MD Primary Care Provider [phone] Claribel Valentin MD Unavailable [phone] Jacque Franks OD Unavailable [phone] Encounters Date Type Department Care Team Description 05/15/[address] [facility] [address] [place] [address] Arnel Carter II, MD 04/11/[address] [facility] [address] [place] [address] [address] [place] [address] Yareli Ojeda MA 04/03/2024 10:00 AM FERMENTOLOGIST Office Visit [facility] [place] [address] [place] [address] Michele Gong NP Neck pain, bilateral (Primary Dx); Mass of right lower leg 04/03/2024 Patient Self-T[address] [facility] [address] [place] [address] Mychart, Generic Provider from Last 3 Months Allergies Active Allergy Reactions Criticality Noted Date Comments Dulaglutide Rash Medium 03/20/2021 Medications blood glucose diagnostic (glucose blood) strip Use to check blood sugar 3 times daily 100 each 5 01/04/20 22 Active pen needle, diabetic (BD Ultra-Fine Short Pen Needle) 31 gauge x 5/16 needle USE EVERY DAY TO FOUR TIMES DAILY DIRECTED 100 each 11 03/21/19 23 Active FreeStyle Tammy 3 Sensor deviceIndicatio ns:Type 2 diabetes mellitus with other circulatory complication, with long-term current use of insulin (HCC) One sensor every 14 days 2 each 11 05/11/19 24 Active lisinopriL (PRINIVIL,ZESTR [place]) 20 mg tabletIndicatio ns:Essential hypertension TAKE 1 TABLET(20 MG) BY MOUTH DAILY 90 tablet 3 08/01/19 24 Active atorvastatin (LIPITOR) 20 mg tabletIndicatio ns:Type 2 diabetes mellitus with nephropathy (HCC) Take 1 tablet (20 mg total) by mouth daily 90 tablet 11/30/19 24 Active tirzepatide (Mounjaro) 10 mg/0.5 mL pen injectorIndicat ions:Type 2 diabetes mellitus with other circulatory complication, with long-term current use of insulin (HCC) Inject 10 mg under the skin once a week 2 mL 5 02/29/20 24 Active ibuprofen (ADVIL,MOTRIN) 600 mg tablet Take 1 tablet (600 mg total) by mouth every 6 (six) hours as needed for pain 30 tablet 03/03/20 24 Active methylPREDNISol one (MEDROL DOSEPACK) 4 mg DosepackIndicat ions:Neck pain, bilateral Take 6 tabs on day 1, reduce dose by 1 daily until prescription is complete. 1 packet 04/03/19 25 Active cyclobenzaprine (FLEXERIL) 5 mg tabletIndicatio ns:Neck pain, bilateral Take 1 tablet (5 mg total) by mouth 3 (three) times a day as needed for muscle spasms for up to 3 days 9 tablet 04/03/19 25 Active dapagliflozin propanediol (FARXIGA) 10 mg tablet TAKE 1 TABLET(10 MG) BY MOUTH DAILY 90 tablet 3 06/03/19 25 Active dapagliflozin propanediol (Farxiga) 10 mg tablet TAKE 1 TABLET(10 MG) BY MOUTH DAILY 90 tablet 05/31/19 25 Active Farxiga 10 mg tablet 03/06/20 24 2024 Discontinued Active Problems Problem Noted Date Diagnosed Date Establishing care with new doctor, encounter for 05/07/2023 Assessment & Plan (05/07/2023 11:39 AM FERMENTOLOGIST): A(n) initial visit to establish care has been performed today. Clinton Osorio is not up to date on screening tests. He is in need of Diabetic eye exam, Prostate screening, Diabetic kidney disease screening, and Cholesterol screening. He is not up to date on needed preventative vaccinations; He is in need of Covid-19 (booster). We discussed healthy lifestyle habits, educational material has been given. Medications reviewed, changes documented as per the medical record and discussed with patient along with risks vs benefits. Return in 6 months Hyperlipidemia associated with type 2 diabetes thanh sylvester 04/26/2022 Assessment & Plan (02/29/2024 11:46 AM FERMENTOLOGIST): Patient on statin therapy Tolerating well Assessment & Plan (08/02/2023 11:07 AM CDT): Patient on statin therapy Tolerating well Assessment & Plan (01/03/2023 10:35 AM CDT): Patient on statin therapy Tolerating well Assessment & Plan (08/21/2022 7:40 PM CDT): Patient on statin therapy Tolerating well Assessment & Plan (04/26/2022 12:59 PM FERMENTOLOGIST): Patient on statin therapy Tolerating well Uncontrolled type 2 diabetes mellitus with hyper glycemia 01/03/2022 Assessment & Plan (04/09/2022 7:57 PM FERMENTOLOGIST): Labs today. Continue current Toujeo, Humalog, metformin. Some concerns for dietary intake are noted. Declining use of Tammy. Consideration for endocrinology referral. Eye exam is up-to-date. Assessment & Plan (01/03/2022 5:07 PM CDT): Home readings have been up into the 500s. Dietary monitoring is minimally observed at this time. Counseled. Advised patient to continue Humalog 8 units t.i.d. with meals. Increase Toujeo to 20 units at bedtime. Anticipate 5 unit changes every 3 days until blood sugars are underneath 200. Right rotator cuff tendinitis 07/12/2021 Assessment & Plan (01/03/2022 5:07 PM CDT): Chronic. Intermittent use of naproxen recommended. CMP is ordered. Assessment & Plan (07/12/2021 11:06 AM CDT): Patient's history exam is consistent with rotator cuff tendinitis. With his elevated blood sugars and high insulin needs the patient most likely is a poor candidate for cortisone injections. Majority these cases still can be treated with conservative measures and have prescribed physical therapy. If he is having persistent issues following a concerted rotator cuff rehab program other treatment may need to be considered. Some individuals required decompressive surgery Acute left-sided low back pain with left-sided s ciatica 07/06/2021 Assessment & Plan (05/28/2022 12:31 PM CDT): Improving. Resolution of radicular pain. Has not seen PT. Assessment & Plan (07/06/2021 9:36 PM CDT): Resume use of flexeril 10 mg daily, heat, naproxen. Hold ibuprofen while taking naproxen. Ortho. Imaging. Family history of colon cancer 10/28/2018 Assessment & Plan (06/18/2020 6:47 AM CDT): Had colonoscopy completed with Dr. Winn 01/23/2020. + polyps. Was recommend to have in 10 yr. Assessment & Plan (03/17/2019 10:15 PM FERMENTOLOGIST): Needs to schedule colonoscopy. Counseled. Assessment & Plan (11/03/2018 9:35 PM CDT): Colonoscopy and GI consult ordered. Type 2 diabetes mellitus with nephropathy 2018 Assessment & Plan (01/03/2022 5:07 PM CDT): Labs as ordered. Continue lisinopril 20. Assessment & Plan (05/15/2021 6:28 PM FERMENTOLOGIST): Labs today. Continue current lisinopril 20. Assessment & Plan (06/18/2020 6:47 AM CDT): A1C 9.3 in office today. Newly worsening. Added lalitaelainejamal. Hx of balanitis in the past month. Does not want to do injections. He is needing his eye exam. He has referral information. Carb/dietary counseling provided. Labs pending. Assessment & Plan (01/11/2020 11:41 PM CDT): Labs today. Continue current. Assessment & Plan (11/03/2018 9:36 PM CDT): Improving. Continue to work on sugar restriction, wt loss. Need eye exam. Onychomycosis 07/02/2017 Assessment & Plan (06/18/2020 6:46 AM CDT): Unchanged. No further worsening. Assessment & Plan (05/04/2018 7:09 PM FERMENTOLOGIST): Podiatry referral offered has info. Assessment & Plan (07/02/2017 9:32 AM CDT): Great toes bilaterally. Also noted to have linear pattern across instep of bilateral feet. OTC ketocaonzole powder/lotrimin recommended. Class 2 severe obesity due t o excess calories with serious comorbidity and body mass index (BMI) of 37.0 to 37.9 in adult 02/21/2017 Assessment & Plan (02/29/2024 11:47 AM FERMENTOLOGIST): Chronic, worsening Discussed about healthy lifestyle habits advise to work on healthy diet, avoid processed foods , increase vegetables and protein and cut back on carb portions and also avoid fruit juices and regular soda and desserts Increase physical activity , recommend at least 150 min of aerobic activity per week and include resistance training 2 x weekly Advised to work on stress management Assessment & Plan (08/02/2023 11:07 AM CDT): Chronic, stable but still above goal Discussed with patient regarding healthy lifestyle habits Start exercising every day 30-40 min in morning Work on calorie deficit diet as we discussed to help fat loss Assessment & Plan (05/07/2023 11:43 AM FERMENTOLOGIST): BMI Follow-up includes: nutrition counseling, exercise counseling, and education provided. Assessment & Plan (01/03/2023 10:36 AM CDT): Chronic, still above goal, slowly improving Counseled on diet and exercise Assessment & Plan (08/21/2022 7:40 PM CDT): Counseled on diet and exercise Assessment & Plan (04/26/2022 12:58 PM FERMENTOLOGIST): Counseled on diet and exercise Assessment & Plan (04/09/2022 7:56 PM FERMENTOLOGIST): Worsening. Body mass index is 42.53 kg/m . BMI Follow-up includes: nutrition counseling, exercise counseling and education provided. Assessment & Plan (01/03/2022 5:05 PM CDT): Improving. Body mass index is 41.48 kg/m . BMI Follow-up includes: education provided. Assessment & Plan (07/06/2021 2:17 PM CDT): Body mass index is 42.97 kg/m . Worsening. Counseled on follow-up with bariatrician. Referral provided. Will attempt victoza-shorter half life and had localized reaction to trulicity. Counseled pt. Assessment & Plan (05/10/2021 9:17 AM FERMENTOLOGIST): Body mass index is 42.38 kg/m . Up 2 lb since ROMEO. Off of trulicity due to rash. He has been limiting carbs, but not counting. Counseled. Assessment & Plan (03/07/2021 5:35 PM FERMENTOLOGIST): Body mass index is 42.15 kg/m . reports at home he is down 176. Still struggling to determine what he can or cannot be. Has not utilized [place] [employer] website to assist with meal planning. Counseled. Assessment & Plan (02/22/2021 6:36 AM FERMENTOLOGIST): Wt loss con't 2 lb. Struggling to determine dietary intake appropriate for diabetes. Working with travel pta. Again given carb intake recommendations for snack/meal/proteins. Assessment & Plan (02/14/2021 7:13 PM FERMENTOLOGIST): BMI Follow-up includes: nutrition counseling. Body mass index is 41.79 kg/m . Assessment & Plan (12/08/2020 5:49 AM CDT): Body mass index is 42.97 kg/m . BMI Follow-up includes: nutrition counseling and education provided. Assessment & Plan (06/18/2020 6:45 AM CDT): BMI Follow-up includes: education provided. Assessment & Plan (10/08/2019 11:59 AM CDT): Asking about ketogenic diet. Advised no more than 100 g/day of protein-recommend modified with vegetables. Aware of risk/benefit. Assessment & Plan (03/17/2019 10:11 PM FERMENTOLOGIST): Worsening. Recommend healthy varied diet with minimal processed foods, increased amounts of fruits and vegetables and low fat and cholesterol levels-no fried, high fat or high sugar foods. Avoidance of faroese fried and other fried foods to start. Assessment & Plan (10/28/2018 3:10 PM CDT): Improving. Not eating concentrated sweets. Continue. Assessment & Plan (05/04/2018 7:11 PM FERMENTOLOGIST): Obesity is worsening. BMI Follow-up includes: nutrition counseling, exercise counseling, education provided and referral to travel pta. Assessment & Plan (10/31/2017 6:08 PM CDT): Obesity is unchanged. Reports some stress. Is trying to adjust diet. Exercise recommended outside of work. Assessment & Plan (07/02/2017 9:30 AM CDT): Obesity is improving with lifestyle modifications. Lost 11 lb since ROMEO. Encouraged to exercise outside of work. Assessment & Plan (03/28/2017 9:38 AM FERMENTOLOGIST): RACHEL saxena, my fitness pal reviewed. Instructed to increase physical activity-portions control. Assessment & Plan (02/21/2017 5:42 PM FERMENTOLOGIST): Obesity is newly identified. walking at work.Portion control discussed. 1800 gregg diet. Informal exercise measures discussed, e.g. taking stairs instead of elevator. Handouts provided. My fitness pal and calorie counter ap discussed-opened in ov. Type 2 diabetes mellitus wit h circulatory disorder, with long-term current use of insulin 03/19/2015 Assessment & Plan (02/29/2024 11:47 AM FERMENTOLOGIST): Chronic, overall well controlled A1c 4.9% Reviewed freestyle Tammy 3 download Blood sugar target range 100% No hypoglycemia noted and no hyperglycemia noted Stop Farxiga Continue Mounjaro to 10 mg subcu weekly Advised to work on stress management Counseled on in healthy lifestyle habits Follow-up in 6 months Assessment & Plan (08/02/2023 11:08 AM CDT): Chronic, significant improvement in control A1c 4.9% Reviewed freestyle Tammy 3 download Blood sugar target range 100% No hypoglycemia noted and no hyperglycemia noted Stop metformin XR Plan to increase Mounjaro to 10 mg subcu weekly Continue Farxiga 10 mg oral daily Counseled on in healthy lifestyle habits Recommend to make an eye exam appointment as soon as possible Follow-up in 6 months Assessment & Plan (01/03/2023 10:37 AM CDT): Chronic, overall well controlled A1c 5.2% Reviewed CGM download 100% in target range No hypoglycemia noted Plan to decrease metformin XR 500 mg 2 tablets oral daily Continue Mounajro 5 mg subQ weekly Continue Farxiga 10 mg oral daily Recommend annual dilated eye exam Counseled on diet and exercise daily foot care Follow-up in 6 months Assessment & Plan (08/21/2022 7:43 PM CDT): Chronic , improving control A1c - 5.9 % - counseled on diet and exercise - stop Humalog - keep taking farxiga the same - start taking Metformin Xr 500 mg - 4 tablets oral daily - decrease Toujeo 20 units SQ daily Start Mounjaro 2.5 mg SQ weekly for 4 weeks Than after 4 weeks - stop Toujeo insulin Increase Mounjaro to 5 mg SQ weekly Assessment & Plan (04/26/2022 12:59 PM FERMENTOLOGIST): Chronic, , uncontrolled, worsening A1c 8.3% Counseled on diet and exercise Sent in prescription for freestyle Tammy 3 adjusted Toujeo to 40 units SQ daily at bedtime Start Farxiga 10 mg oral daily Adjusted Metformin XR to 500 mg - 2 tab oral twice daily with meals Advised to make an eye exam appointment Daily foot care Advised good oral hydration Follow-up in 3 months Assessment & Plan (04/09/2022 7:59 PM FERMENTOLOGIST): Continue Toujeo 20 units q.a.m. 10 units q.h.s.. Reports that he is using sliding scale Humalog-usually is taking 8 units t.i.d.. Using metformin extended 750 daily. (Humalog SIG BLOOD GLUCOSE> 200-4 UNITS FOR EVERY 50 OVER 200 ADD 1 UNITS ADDITIONAL, EX BLOOD GLUCOSE 300=6 UNITS; CHECK THREE TIMES DAILY Max 45 un/day). Labs are ordered. Strong suspicion patient need Endocrinology discussion he is unsure of taking medications-would like to get off. Assessment & Plan (01/03/2022 5:07 PM CDT): Advised patient to continue Humalog 8 units t.i.d. with meals. Increase Toujeo to 20 units at bedtime. Anticipate 5 unit changes every 3 days until blood sugars are underneath 200. Hyperglycemia with symptoms as noted. Eye exam is up-to-date. A1c is ordered. Assessment & Plan (07/06/2021 2:17 PM CDT): A1C in office 7.8. Up on toujeo to 18 units and add victoza 0.6 mg daily. Watch for reaction. Carb counting-he was eating 1/2 pineapple for a snack. Awareness encouraged. He is making progress. Assessment & Plan (05/15/2021 6:29 PM FERMENTOLOGIST): Labs today. Continue current toujeo 6 un, sliding scale novolin, and metformin will be changed to er due to continued diarrhea. Stopped GLP1 due to rash at site- true hive. Will discuss with pharmacist to determine cross-believe all in class will cause similar. Assessment & Plan (03/07/2021 5:37 PM FERMENTOLOGIST): Decreased toujeo from 10 to 5 units at bedtime. He is still using sliding scale. Blood sugars are ranging between 100 and 150 on average. A1c will be in April. Some nausea is noted over the past week. Also reports headache a new ear pain. Suspect that this is all related to otitis as opposed to Trulicity. Patient will notify if there is continued concern after use of antibiotic. Assessment & Plan (02/22/2021 6:35 AM FERMENTOLOGIST): Improving. Not to goal. Blood sugar into the 260s fbg and lowest 160. Start toujeo 10 un nightly. Con't SSI. Con't metformin and trulicity. Assessment & Plan (02/14/2021 5:10 PM FERMENTOLOGIST): Newly worsening. Counseled carb should be no more than 45 g per meal and 15 g per snack. Monitor blood sugars t.i.d.. Start: Sliding scalensulin lispro (HumaLOG) 100 unit/mL pen for injection; SSI: BG >200-4 units, for every 50 over 200 add 1 units additional;ex bg 300=6 units; check TID; max dose is 30 un/day - dulaglutide (TRULICITY) 1.5 mg/0.5 mL pen injector; Inject 0.5 mL (1.5 mg total) under the skin every 7 days (4 pens at a time) - pen needle, diabetic 31 gauge x 5/16 needle; Use to inject 1-4 times daily as directed. he is to continue metformin. Assessment & Plan (12/08/2020 5:50 AM CDT): Labs today. Continue current metformin 1000 mg b.i.d. as well as working with dietitian to determine exchanges. Encouraged if needing to eat out-utilize ap to determine nutritional intake into attempt to consume less 500 calories per meal.(restaurant food). Assessment & Plan (06/18/2020 6:45 AM CDT): A1C 9.3 in office today. Newly worsening. Added januvia. Hx of balanitis in the past month. Does not want to do injections. He is needing his eye exam. He has referral information. Carb/dietary counseling provided. Labs pending. Assessment & Plan (01/11/2020 11:41 PM CDT): Counseled needs eye exam. Labs as ordered. Metformin concerns raised. Counseled. To f/u with pharmacy to determine if batches were involved. Assessment & Plan (10/08/2019 12:00 PM CDT): Counseled on dietary change. Recommend regular aerobic exercise for at least 150 minutes weekly-preferably 5 x weekly 30 min. Recommend healthy varied diet with minimal processed foods, increased amounts of fruits and vegetables and low fat and cholesterol levels-no fried, high fat or high sugar foods. Eye exam due- counseled. A1C 6.0. Assessment & Plan (07/09/2019 3:08 PM CDT): Labs today. Continue current. Needing blood work, urine, as well as eye exam. Counseled. Concerned that he may have renal disease-aware did have elevation in urine albumin-but presently unknown. Assessment & Plan (03/17/2019 10:13 PM FERMENTOLOGIST): Labs today. Continue current. Counseled on need to see eye doctor annually. Declined flu vaccine. Log would be helpful to help manage. Wt Loss recommended. Assessment & Plan (10/28/2018 3:09 PM CDT): A1C 5.1% today. Blood sugar in OV 128. Continue metformin as directed. Continue to monitor. Counseled to acquire eye exam. Assessment & Plan (05/04/2018 7:09 PM FERMENTOLOGIST): Labs today. Continue current. Reminded to bring in blood sugar diary at next visit. Regular aerobic exercise. Discussed foot care. Reminded to get yearly retinal exam. Diabetes will be reassessed in 3 months. Assessment & Plan (10/31/2017 6:09 PM CDT): Intermittent diarrhea. Reviewed what to expect and notify if chronic daily. Otherwise tolerating medication. No more soda consumption is reported. Labs today. Continue current. Assessment & Plan (07/02/2017 9:31 AM CDT): Diabetes is improving with treatment. Regular aerobic exercise. Discussed foot care. Reminded to get yearly retinal exam. Podiatry referral for onychomosis as well as fungal. Diabetes will be reassessed 4 mo. Assessment & Plan (03/28/2017 9:39 AM FERMENTOLOGIST): Need log and A1C. Reordered. Tolerating Metformin well. Diabetes will be reassessed in 3 months. Assessment & Plan (02/21/2017 5:44 PM FERMENTOLOGIST): Diabetes is newly identified. Reminded to bring in blood sugar diary at next visit. Dietary recommendations for ADA diet. Regular aerobic exercise. Medication changes per orders. travel pta referral. Diabetes will be reassessed in 1 month. Discussed that may need to have injectable for management to assist with weight loss. Pt reports that he wants to get off of medication for good. Discussed will need to monitor cals. Hypertension associated with diabetes 03/19/2011 Assessment & Plan (02/29/2024 11:46 AM FERMENTOLOGIST): Chronic, well controlled Continue lisinopril Assessment & Plan (08/02/2023 11:06 AM CDT): Chronic, well controlled Continue lisinopril Assessment & Plan (01/03/2023 10:35 AM CDT): Chronic, well controlled Continue lisinopril Assessment & Plan (08/21/2022 7:44 PM CDT): Chronic, well controlled Continue lisinopril Assessment & Plan (04/26/2022 12:58 PM FERMENTOLOGIST): Chronic, well controlled Continue lisinopril Assessment & Plan (04/09/2022 7:56 PM FERMENTOLOGIST): Controlled. Continue current regimen lisinopril 20. Dietary monitoring of sodium intake discussed. Assessment & Plan (01/03/2022 5:05 PM CDT): Controlled. Continue current regimen lisinopril 20. Labs today. Next Assessment & Plan (07/06/2021 2:17 PM CDT): Controlled. Continue current regimen. Assessment & Plan (05/10/2021 9:18 AM FERMENTOLOGIST): Controlled. Continue current regimen of lisinopril 20 mg. Assessment & Plan (03/07/2021 5:35 PM FERMENTOLOGIST): Controlled. Continue current regimen Lisinopril 20 daily. Assessment & Plan (02/22/2021 6:34 AM FERMENTOLOGIST): 110/74 repeat. Did not eat today. He has been drinking fluids-but he has been drinking fluids. Continue current regimen. Assessment & Plan (02/14/2021 5:11 PM FERMENTOLOGIST): Controlled. Continue current regimen. Assessment & Plan (12/08/2020 5:48 AM CDT): Controlled. Continue current regimen of lisinopril. Assessment & Plan (06/18/2020 6:45 AM CDT): Controlled. Continue current regimen. Assessment & Plan (01/11/2020 11:40 PM CDT): Would benefit from monitor. Labs as ordered. Con't current. Assessment & Plan (10/08/2019 11:59 AM CDT): No log today. No s/s of elevation. Refilled medication. Labs stable. Need in OV in 3 mo. Assessment & Plan (07/09/2019 3:08 PM CDT): Controlled. Continue current regimen. Counseled on dietary change and wt loss. Assessment & Plan (03/17/2019 10:11 PM FERMENTOLOGIST): Controlled. Continue current regimen. Con't dietary monitoring. Recommend regular aerobic exercise for at least 150 minutes weekly-preferably 5 x weekly 30 min. Assessment & Plan (10/28/2018 3:09 PM CDT): Controlled. Continue current regimen. Continue to work on weight loss. Assessment & Plan (05/04/2018 7:11 PM FERMENTOLOGIST): Hypertension is improving with treatment. Dietary sodium restriction. Weight loss. Regular aerobic exercise. Continue current medications. Blood pressure will be reassessed at the next regular appointment. Assessment & Plan (10/31/2017 6:03 PM CDT): Hypertension is improving with treatment. Continue current treatment regimen. Dietary sodium restriction. Regular aerobic exercise. Blood pressure will be reassessed at the next regular appointment. Assessment & Plan (07/02/2017 9:26 AM CDT): Hypertension is improving with treatment. Dietary sodium restriction. Regular aerobic exercise. Continue current medications. Blood pressure will be reassessed 4 mo.. Assessment & Plan (03/28/2017 9:38 AM FERMENTOLOGIST): Controlled on current lisinopril 20 daily. Labs reordered-he reports he got stuck-no records. Sodium restriction. Exercise. 3 mo f/u. Assessment & Plan (02/21/2017 3:12 PM FERMENTOLOGIST): Hypertension is newly identified. Dietary sodium restriction. Weight loss. Regular aerobic exercise. Medication changes per orders. Blood pressure will be reassessed in 4 weeks. Resolved Problems Problem Noted Date Diagnosed Date Resolved Date Neck pain, acute 05/28/2022 08/17/2022 Assessment & Plan (05/28/2022 12:33 PM CDT): Acute. Unknown etiology. Suspect secondary to stress. Noted to be upper back without radicular. Range of motion much improved since onset. Referral to physical therapy. Counseled to avoid having any type of chiropractic manipulation other than stretch. MRI is ordered. Change to tizanidine as failed Skelaxin and Flexeril. Continue diclofenac and acetaminophen. Avoid steroids-hyperglycemia was severe. Chronic right shoulder pain 07/06/2021 01/03/2022 Assessment & Plan (07/06/2021 2:18 PM CDT): Ortho referral provided. Right-sided low back pain wi th right-sided sciatica 10/28/2018 06/18/2020 Assessment & Plan (01/11/2020 11:40 PM CDT): Chronic. Previously had surgery. Same side. Is currently taking NSAID daily. May benefit from f/u with ortho. Declining. Counseled to complete HEP. Wt loss. Assessment & Plan (03/17/2019 10:23 PM FERMENTOLOGIST): Counseled on importance of HEP. Wanting imaging. Assessment & Plan (11/03/2018 9:35 PM CDT): New. Most likely 2/2 to strain. Rest. NSAIDs. Exercises. Disease of tonsils 04/18/2016 Immunizations Immunization Administration Dates Next Due Influenza, Quadrivalent, Spl it, Preservative Free, Intramuscular 02/21/2017 Influenza, Trivalent, Preser vative Free, Intramuscular 02/05/2024 Influenza, Unspecified 03/19/2023(Deferr ed: Patient Refused),08/18/2022(Deferred: Patient Refused),03/19/2022(Deferred: Patient Refused) Td, adsorbed 02/21/2017 Social History Tobacco Use Types Packs/Day Years Used Date Smoking Tobacco: Former Cigarettes 0.8 24 1 990 - 2013 Smokeless Tobacco: Former Alcohol Use Standard Drinks/Week Comments No 0 (1 standard drink = 0.6 oz pur e alcohol) AUDIT-C Answer Date Recorded Q1: How often do you have a drink containing alc ohol? Never 05/10/2021 Average Number of Drinks Not on file 022 Frequency of Binge Drinking Not on file 04/20 PHQ-2 Answer Date Recorded PHQ-2 Total Score (If total score is 3 or more points, staff should administer the PHQ-9) 0 02/29/2024 Sex and Gender Information Value Date Recorded Sex Assigned at Not on file Legal Sex Male 12:47 AM FERMENTOLOGIST Gender Identity Male 09/22/2019 8:44 AM CDT Sexual Orientation Straight 09/22/2019 8: 44 AM CDT Occupation Industry Job Start Date Job End Date [employer] Not on file Not on file Not on file Last Filed Vital Signs Vital Sign Reading Time Taken Comments Blood Pressure 119/80 04/03/2024 10:00 AM FERMENTOLOGIST Pulse 92 04/03/2024 10:00 AM FERMENTOLOGIST Temperature 37 C (98.6 F) 04/03/2024 10:00 AM FERMENTOLOGIST Respiratory Rate 20 04/03/2024 10:00 AM FERMENTOLOGIST Oxygen Saturation 98% 04/03/2024 10:00 AM FERMENTOLOGIST Inhaled Oxygen Concentration - - Weight 118.8 kg (262 lb) 04/03/2024 10:00 AM FERMENTOLOGIST Height 177.8 cm (5' 10 ) 04/03/2024 10:00 AM FERMENTOLOGIST Body Mass Index 37.59 04/03/2024 10:00 AM FERMENTOLOGIST Plan of Treatment Not on file Procedures Procedure Name Priority Date/Time Associated Diagnosis Comments EGFR Routine 02/05/2024 2:12 PM FERMENTOLOGIST Hyperlipidemia associated with type 2 diabetes mellitus (HCC) HEMOGLOBIN A1C Routine 02/05/2024 2:12 PM FERMENTOLOGIST Hyperlipidemia associated with type 2 diabetes mellitus (HCC) Hypertension associated with diabetes (HCC) LIPID PANEL Routine 02/05/2024 2:12 PM FERMENTOLOGIST Hypertension associated with diabetes (HCC) ALBUMIN CREATININE RATIO, URINE Routine 02/05/2024 2:12 PM FERMENTOLOGIST Hyperlipidemia associated with type 2 diabetes mellitus (HCC) Hypertension associated with diabetes (HCC) HM DIABETES EYE EXAM Routine 09/22/2023 7:38 AM CDT PSA SCREEN Routine 05/07/2023 11:53 AM FERMENTOLOGIST Screening for prostate cancer COLONOSCOPY Routine 01/23/2020 from Last 3 Months or Most Recently Relevant to Health Maintenance Results * eGFR (02/05/2024 2:12 PM FERMENTOLOGIST) eGFR 77 >=60 mL/min/1. 73 m2 Comment: Interpretive Data Reference Interval Normal >/= 90 mL/min/1.73m2 Mildly decreased* 60 - 89 mL/min/1.73m2 Mildly to moderately decreased 45 - 59 mL/min/1.73m2 Moderately to severely decreased 30 - 44 mL/min/1.73m2 Severely decreased 15 - 29 mL/min/1.73m2 Kidney Failure < 15 mL/min/1.73m2 *Relative to young adult level Estimated glomerular filtration rate is determined by the 2020 CKD-EPI equation recommended by the National Kidney Foundation (A Unifying Approach to GFR Estimation: Recommendations of the NKF-ASK Task Force on Reassessing the Inclusion of Race in Diagnosing Kidney Disease, JASN 2020). The CKD-EPI equation should not be used for patients with unstable renal function and has not been validated in children and those over 70. Current interpretive data was last reviewed 2021. Blood 02/05/2024 2:12 PM FERMENTOLOGIST 02/05/2024 9:39 PM FERMENTOLOGIST us Jordy Parra MD LAB BLOOD ORDERABLES Final Result [facility] [address] Department [place] [address] * (ABNORMAL) Albumin Creatinine Ratio, Urine (02/05/2024 2:12 PM FERMENTOLOGIST) [facility] Albumin Ur 36.0 mg/L Comment: Interpretive Data No reference range established. Current interpretive data was last revised 2018. Creatinine Ur 49.0 mg/dL [facility] Comment: Interpretive Data No reference range established. Current interpretive data was last revised 2018. Albumin Creatinine Ratio, Ur 73(H) 1 - 29 mg/g [facility] Urine 02/05/2024 2:12 PM FERMENTOLOGIST 02/05/2024 9:22 PM FERMENTOLOGIST Result [facility] Jordy Parra MD LAB URINE ORDERABLES Final Result Performing Organization Address [facility] Phone Number [facility] [address] [employer] [place], [place] [id number] * Hemoglobin A1c (02/05/2024 2:12 PM FERMENTOLOGIST) [facility] Hgb A1C 4.9 4.0 - 5.6 % Estimated Average Glucose 94 mg/dL [facility] Comment: The ADA recommends reporting an estimated Average Glucose (eAG) with all Hemoglobin A1c results using the equation derived from a study of 507 normal and diabetic adults. Minority populations were underrepresented and children were not included. (Diabetes Care 31:6064-0325, 2008). The eAG is not equivalent to a fasting glucose. Blood 02/05/2024 2:12 PM FERMENTOLOGIST 02/05/2024 9:22 PM FERMENTOLOGIST Jordy Parra MD LAB BLOOD ORDERABLES Final Result Performing Organization Address [facility] Co de Phone Number [facility] [address] [facility] [employer] [place], [place] [id number] * (ABNORMAL) Lipid panel (02/05/2024 2:12 PM FERMENTOLOGIST) [facility] Cholesterol 74 30 - 199 mg/dL Comment: Interpretive Data Ages < or = 19 years Acceptable: <170 mg/dL Borderline high: 170-199 mg/dL High: >or= 200 mg/dL Ages > or = 20 years Desirable: <200 mg/dL Borderline high: 200-239 mg/dL High: >or= 240 mg/dL Literature References: 1. Expert Panel on Integrated Guidelines for Cardiovascular Health and Risk Reduction in Children and Adolescents. Pediatrics 2011;128:S213 2. NCEP Expert Panel. Circulation 2004;110:227 Current Interpretive Data was last revised on 2017. Triglycerides 78 <=149 mg/dL [facility] [place] Comment: Interpretive Data Ages < or = 9 years Acceptable: <75 mg/dL Borderline high: 75-99 mg/dL High: >or= 100 mg/dL Ages 10 to 20 years Acceptable: <90 mg/dL Borderline high: 90-129 mg/dL High: >or= 130 mg/dL Ages > or = 20 years Desirable: <150 mg/dL Borderline high: 150-199 mg/dL High: 200-499 mg/dL Very high: >or= 499 mg/dL Literature References: 1. Expert Panel on Integrated Guidelines for Cardiovascular Health and Risk Reduction in Children and Adolescents. Pediatrics 2011;128:S213 2. NCEP Expert Panel. Circulation 2004;110:227 Current Interpretive Data was last revised on 2017. HDL 39(L) >=40 mg/dL [facility] [place] Comment: Interpretive Data Ages < or = 19 years Acceptable: >45 mg/dL Borderline low: 40-45 mg/dL Low: <40 mg/dL Ages > or = 20 years Desirable: >or= 60 mg/dL Low: <40 mg/dL Literature References: 1. Expert Panel on Integrated Guidelines for Cardiovascular Health and Risk Reduction in Children and Adolescents. Pediatrics 2011;128:S213 2. NCEP Expert Panel. Circulation 2004;110:227 Current Interpretive Data was last revised on 2017. LDL, calculated 18 <=129 mg/dL [facility] [place] Comment: Interpretive Data Ages < or = 19 years Acceptable: <110 mg/dL Borderline high: 110-129 mg/dL High: >or= 130 mg/dL Ages > or = 20 years Optimal: <100 mg/dL Near optimal: 100-129 mg/dL Borderline high: 130-159 mg/dL High: >160 mg/dL Calculated using the Melara LDL-C estimating equation. This equation was implemented on 2023. Prior to this date LDL-C was estimated using the Friedewald equation. Literature References: 1. Expert Panel on Integrated Guidelines for Cardiovascular Health and Risk Reduction in Children and Adolescents. Pediatrics 2011;128:S213 2. NCEP Expert Panel. Circulation 2004;110:227 3. Kelton Vega et al. JENS Cardiol. 2019July 17;5(5):540-548. doi: 10.1001/[email or web address] Current Interpretive Data was last revised on 2023. Non-HDL Cholesterol 35 mg/dL [facility] [place] Comment: Interpretive Data Ages < or = 19 years Acceptable: <120 mg/dL Borderline high: 120-144 mg/dL High: >145 mg/dL Ages > or = 20 years When triglycerides are >200 mg/dL, Non-HDL cholesterol is a secondary target of therapy with treatment goals that are 30 mg/dL greater than the LDL cholesterol target. Literature References: 1. Expert Panel on Integrated Guidelines for Cardiovascular Health and Risk Reduction in Children and Adolescents. Pediatrics 2011;128:S213 2. NCEP Expert Panel. Circulation 2004;110:227 Current Interpretive Data was last revised on 2017. Chol/HDL ratio 2 [facility] Blood 02/05/2024 2:12 PM FERMENTOLOGIST 02/05/2024 9:22 PM FERMENTOLOGIST Jordy Parra MD LAB BLOOD ORDERABLES Final Result [facility] [address] [place] [address] * DIABETES EYE EXAM (09/22/2023 7:38 AM CDT) Historical Provider HEALTH MAINTENANCE Final Result * PSA screen (05/07/2023 11:53 AM FERMENTOLOGIST) PSA-Total 0.22 ng/mL [facility] [place] Comment: Interpretive Data AGE SEX REFERENCE INTERVAL 0 minutes-150 years Female None 0 minutes-49 years Male None 50-59 years Male 0-3.90 60-69 years Male 0-5.40 70-79 years Male 0-6.20 80-150 years Male 0-6.20 The Isabella PSA Total assay procedure was used. Results from different manufacturers or methods may not be comparable. Serial testing should be performed using the same method. Current interpretive data last revised 21. Blood 05/07/2023 11:5 3 AM FERMENTOLOGIST 05/07/2023 6:00 PM FERMENTOLOGIST us Jordy Parra MD LAB BLOOD ORDERABLES Final Result Performing Organization Address City/[place] [address] [address] Department [place] [address] * (ABNORMAL) Colonoscopy (01/23/2020) Anatomical Region Laterality Modality Other us Jose Cruz Winn MD ENDOSCOPY PROCEDURES Final Res ult from Last 3 Months or Most Recently Relevant to Health Maintenance Insurance [employer] ANTHEM ACCESS CHOICE Care Teams Flow Manager Relationship Specialty Start Date End Date Jordy Parra MD [address] [facility] [address] [place] [address] PCP - General Family Medicine 05/07/23 Shama Patel NP [address] [place], [place] [phone] Family Medicine 02/22/17 [place] [address] [place] [address] Consulting Physician Endocrinology 05/07/23 Jacque Franks OD [address] [address] Optometry 05/07/23
--- OUTSIDE RECORDS SUMMARY | 2024-06-13 02:35 | XMS_ITS | Clinical Summary ---
Author Organization [facility] Address [address] [address] Phone Care Team Providers Care Park Worker Supervisor Name Role Phone hSama Patel NP Unavailable [phone] Jordy Parra MD Primary Care Provider Claribel Valentin MD Unavailable [phone] TinyJacque de luna OD Unavailable [phone] Allergies Active Allergy Reactions Criticality Noted Date Comments Dulaglutide Rash Medium 03/20/2021 Medications blood glucose diagnostic (glucose blood) strip Use to check blood sugar 3 times daily 100 each 01/04/20 22 Active pen needle, diabetic (BD Ultra-Fine Short Pen Needle) 31 gauge x 5/16 needle USE EVERY DAY TO FOUR TIMES DAILY DIRECTED 100 each 11 03/21/19 23 Active FreeStyle Tammy 3 Sensor deviceIndicatio ns:Type 2 diabetes mellitus with other circulatory complication, with long-term current use of insulin (HCC) One sensor every 14 days 2 each 05/11/19 24 Active lisinopriL (PRINIVIL,ZESTR IL) 20 [...] 05/07/2023 Assessment & Plan (05/07/2023 11:39 AM SAND AND G[employer]EL PLANT OPERATOR): A(n) initial visit to establish care has [...] 04/26/2022 Assessment & Plan (02/29/2024 11:46 AM S[employer] AND GRAVEL PLANT OPERATOR): Patient on statin therapy Tolerating well Assessment & Plan (08/02/2023 11:07 AM CDT): Patient on statin therapy Tolerating well Assessment & Plan (01/03/2023 10:35 AM CDT): Patient on statin therapy Tolerating well Assessment & Plan (08/21/2022 7:40 PM CDT): Patient on statin therapy Tolerating well Assessment & Plan (04/26/2022 12:59 PM S[employer] G[employer]EL PLANT OPERATOR): Patient on statin therapy Tolerating well Uncontrolled type 2 diabetes mellitus with hyper glycemia 01/03/2022 Assessment & Plan (04/09/2022 7:57 PM S[employer] GRA[employer]EL PLANT OPERATOR): Labs today. Continue current Toujeo, Humalog, metformin. [...] yr. Assessment & Plan (03/17/2019 10:15 PM S[employer] G[employer]EL PLANT OPERATOR): Needs to schedule colonoscopy. Counseled. Assessment & Plan (11/03/2018 9:35 PM CDT): Colonoscopy and GI consult ordered. Type 2 diabetes mellitus with nephropathy 2018 Assessment & Plan (01/03/2022 5:07 PM CDT): Labs as ordered. Continue lisinopril 20. Assessment & Plan (05/15/2021 6:28 PM S[employer] GRAVEL PLANT OPERATOR): Labs today. Continue current lisinopril 20. Assessment & Plan (06/18/2020 6:47 AM CDT): A1C 9.3 in office today. Newly worsening. Added dina. Hx of balanitis in the past month. [...] worsening. Assessment & Plan (05/04/2018 7:09 PM S[employer] G[employer] PLANT OPERATOR): Podiatry referral offered has info. Assessment & Plan (07/02/2017 9:32 AM CDT): Great toes bilaterally. Also noted to have linear pattern across instep of bilateral feet. OTC ketocaonzole powder/lotrimin recommended. Class 2 severe obesity due t o excess calories with serious comorbidity and body mass index (BMI) of 37.0 to 37.9 in adult 02/21/2017 Assessment & Plan (02/29/2024 11:47 AM S[employer] AND GRAVEL PLANT OPERATOR): Chronic, worsening Discussed about healthy lifestyle habits [...] loss Assessment & Plan (05/07/2023 11:43 AM S[employer] AND GRAVEL PLANT OPERATOR): BMI Follow-up includes: nutrition counseling, exercise counseling, and education provided. Assessment & Plan (01/03/2023 10:36 AM CDT): Chronic, still above goal, slowly improving Counseled on diet and exercise Assessment & Plan (08/21/2022 7:40 PM CDT): Counseled on diet and exercise Assessment & Plan (04/26/2022 12:58 PM SAND AND GRAVEL PLANT OPERATOR): Counseled on diet and exercise Assessment & Plan (04/09/2022 7:56 PM S[employer] AND GRAVEL PLANT OPERATOR): Worsening. Body mass index is 42.53 kg/m [...] pt. Assessment & Plan (05/10/2021 9:17 AM S[employer] AND GRAVEL PLANT OPERATOR): Body mass index is 42.38 kg/m . Up 2 lb since ROMEO. Off of trulicity due to rash. He has been limiting carbs, but not counting. Counseled. Assessment & Plan (03/07/2021 5:35 PM S[employer] AND GRAVEL PLANT OPERATOR): Body mass index is 42.15 kg/m . reports at home he is down 176. Still struggling to determine what he can or cannot be. Has not utilized [employer] website to assist with meal planning. Counseled. Assessment & Plan (02/22/2021 6:36 AM S[employer] AND GRAVEL PLANT OPERATOR): Wt loss con't 2 lb. Struggling to determine dietary intake appropriate for diabetes. Working with spaghetti press helper. Again given carb intake recommendations for snack/meal/proteins. Assessment & Plan (02/14/2021 7:13 PM S[employer] AND GRAVEL PLANT OPERATOR): BMI Follow-up includes: nutrition counseling. Body mass [...] risk/benefit. Assessment & Plan (03/17/2019 10:11 PM SAND AND GRAVEL PLANT OPERATOR): Worsening. Recommend healthy varied diet with minimal processed foods, increased amounts of fruits and vegetables and low fat and cholesterol levels-no fried, high fat or high sugar foods. Avoidance of [place] fried and other fried foods to start. Assessment & Plan (10/28/2018 3:10 PM CDT): Improving. Not eating concentrated sweets. Continue. Assessment & Plan (05/04/2018 7:11 PM SAND AND GRAVEL PLANT OPERATOR): Obesity is worsening. BMI Follow-up includes: nutrition counseling, exercise counseling, education provided and referral to spaghetti press helper. Assessment & Plan (10/31/2017 6:08 PM CDT): Obesity is unchanged. Reports some stress. Is trying to adjust diet. Exercise recommended outside of work. Assessment & Plan (07/02/2017 9:30 AM CDT): Obesity is improving with lifestyle modifications. Lost 11 lb since ROMEO. Encouraged to exercise outside of work. Assessment & Plan (03/28/2017 9:38 AM SAND AND GRAVEL PLANT OPERATOR): RACHEL saxena, my fitness pal reviewed. Instructed to increase physical activity-portions control. Assessment & Plan (02/21/2017 5:42 PM SAND AND GRAVEL PLANT OPERATOR): Obesity is newly identified. walking at work.Portion control discussed. [address] diet. Informal exercise measures discussed, e.g. taking stairs instead of elevator. Handouts provided. My fitness pal and calorie counter ap discussed-opened in ov. Type 2 diabetes mellitus wit h circulatory disorder, with long-term current use of insulin 03/19/2015 Assessment & Plan (02/29/2024 11:47 AM S[employer] AND GRAVEL PLANT OPERATOR): Chronic, overall well controlled A1c 4.9% Reviewed [...] weekly Assessment & Plan (04/26/2022 12:59 PM S[employer] AND GRAVEL PLANT OPERATOR): Chronic, , uncontrolled, worsening A1c 8.3% Counseled [...] months Assessment & Plan (04/09/2022 7:59 PM SAND AND GRAVEL PLANT OPERATOR): Continue Toujeo 20 units q.a.m. 10 units [...] progress. Assessment & Plan (05/15/2021 6:29 PM S[employer] AND GRAVEL PLANT OPERATOR): Labs today. Continue current toujeo 6 un, sliding scale novolin, and metformin will be changed to er due to continued diarrhea. Stopped GLP1 due to rash at site- true hive. Will discuss with pharmacist to determine cross-believe all in class will cause similar. Assessment & Plan (03/07/2021 5:37 PM S[employer] AND GRAVEL PLANT OPERATOR): Decreased toujeo from 10 to 5 units [...] antibiotic. Assessment & Plan (02/22/2021 6:35 AM S[employer] AND GRAVEL PLANT OPERATOR): Improving. Not to goal. Blood sugar into the 260s fbg and lowest 160. Start toujeo 10 un nightly. Con't SSI. Con't metformin and trulicity. Assessment & Plan (02/14/2021 5:10 PM S[employer] GRAVEL PLANT OPERATOR): Newly worsening. Counseled carb should be no [...] 9.3 in office today. Newly worsening. Added dina. Hx of balanitis in the past month. [...] unknown. Assessment & Plan (03/17/2019 10:13 PM SAND AND GRAVEL PLANT OPERATOR): Labs today. Continue current. Counseled on need to see eye doctor annually. Declined flu vaccine. Log would be helpful to help manage. Wt Loss recommended. Assessment & Plan (10/28/2018 3:09 PM CDT): A1C 5.1% today. Blood sugar in OV 128. Continue metformin as directed. Continue to monitor. Counseled to acquire eye exam. Assessment & Plan (05/04/2018 7:09 PM S[employer] GRAVEL PLANT OPERATOR): Labs today. Continue current. Reminded to bring [...] mo. Assessment & Plan (03/28/2017 9:39 AM S[employer] AND GRAVEL PLANT OPERATOR): Need log and A1C. Reordered. Tolerating Metformin well. Diabetes will be reassessed in 3 months. Assessment & Plan (02/21/2017 5:44 PM S[employer] GRAVEL PLANT OPERATOR): Diabetes is newly identified. Reminded to bring in blood sugar diary at next visit. Dietary recommendations for ADA diet. Regular aerobic exercise. Medication changes per orders. spaghetti press helper referral. Diabetes will be reassessed in 1 month. Discussed that may need to have injectable for management to assist with weight loss. Pt reports that he wants to get off of medication for good. Discussed will need to monitor cals. Hypertension associated with diabetes 03/19/2011 Assessment & Plan (02/29/2024 11:46 AM S[employer] AND GRAVEL PLANT OPERATOR): Chronic, well controlled Continue lisinopril Assessment & Plan (08/02/2023 11:06 AM CDT): Chronic, well controlled Continue lisinopril Assessment & Plan (01/03/2023 10:35 AM CDT): Chronic, well controlled Continue lisinopril Assessment & Plan (08/21/2022 7:44 PM CDT): Chronic, well controlled Continue lisinopril Assessment & Plan (04/26/2022 12:58 PM S[employer] G[employer]VEL PLANT OPERATOR): Chronic, well controlled Continue lisinopril Assessment & Plan (04/09/2022 7:56 PM SAND AND GRAVEL PLANT OPERATOR): Controlled. Continue current regimen lisinopril 20. Dietary monitoring of sodium intake discussed. Assessment & Plan (01/03/2022 5:05 PM CDT): Controlled. Continue current regimen lisinopril 20. Labs today. Next Assessment & Plan (07/06/2021 2:17 PM CDT): Controlled. Continue current regimen. Assessment & Plan (05/10/2021 9:18 AM SAND AND GRAVEL PLANT OPERATOR): Controlled. Continue current regimen of lisinopril 20 mg. Assessment & Plan (03/07/2021 5:35 PM S[employer] GRAVEL PLANT OPERATOR): Controlled. Continue current regimen Lisinopril 20 daily. Assessment & Plan (02/22/2021 6:34 AM S[employer] AND GRAVEL PLANT OPERATOR): 110/74 repeat. Did not eat today. He has been drinking fluids-but he has been drinking fluids. Continue current regimen. Assessment & Plan (02/14/2021 5:11 PM S[employer] AND GRAVEL PLANT OPERATOR): Controlled. Continue current regimen. Assessment & Plan [...] loss. Assessment & Plan (03/17/2019 10:11 PM SAND AND GRAVEL PLANT OPERATOR): Controlled. Continue current regimen. Con't dietary monitoring. Recommend regular aerobic exercise for at least 150 minutes weekly-preferably 5 x weekly 30 min. Assessment & Plan (10/28/2018 3:09 PM CDT): Controlled. Continue current regimen. Continue to work on weight loss. Assessment & Plan (05/04/2018 7:11 PM SAND AND GRAVEL PLANT OPERATOR): Hypertension is improving with treatment. Dietary sodium [...] mo.. Assessment & Plan (03/28/2017 9:38 AM SAND AND GRAVEL PLANT OPERATOR): Controlled on current lisinopril 20 daily. Labs reordered-he reports he got stuck-no records. Sodium restriction. Exercise. 3 mo f/u. Assessment & Plan (02/21/2017 3:12 PM S[employer] AND GRAVEL PLANT OPERATOR): Hypertension is newly identified. Dietary sodium restriction. [...] loss. Assessment & Plan (03/17/2019 10:23 PM SAND AND GRAVEL PLANT OPERATOR): Counseled on importance of HEP. Wanting imaging. Assessment & Plan (11/03/2018 9:35 PM CDT): New. Most likely 2/2 to strain. Rest. NSAIDs. Exercises. Disease of tonsils 04/18/2016 1 Encounters Date Type Department Care Team Description 05/15/2024 Telephone [facility] [id number] [place] [address] [address] [address] Arnel Carter II, MD 04/11/2024 Telephone [facility] [address] [place] [address] [address] [address] Yareli Ojeda [place] 04/03/2024 10:00 AM S[employer] AND GRAVEL PLANT OPERATOR Office Visit [facility] [address] [address] Michele Gong NP Neck pain, bilateral (Primary Dx); Mass of right lower leg 04/03/2024 Patient Self-Triage [facility] [address] [place] [address] Mychart, Generic Provider from Last 3 Months Immunizations Immunization Administration Dates Next Due Influenza, Quadrivalent, Spl it, Preservative Free, Intramuscular 02/21/2017 Influenza, Trivalent, Preser vative Free, Intramuscular 02/05/2024 Influenza, Unspecified 03/19/2023(Deferr ed: Patient Refused),08/18/2022(Deferred: Patient Refused),03/19/2022(Deferred: Patient Refused) Td, adsorbed 02/21/2017 Surgical History Surgery Date Site/Laterality Comments TONSILECTOMY, ADENOIDECTOMY, BILATERAL MYRINGOTOMY AND TUBES BACK SURGERY 03/19/2015 - 03/18/2016 Right L5 Medical History Medical History Date Comments Diabetes mellitus (HCC) Hypertension Disease of tonsils 04/18/2016 Right-sided low back pain with right-sided sciat ica 10/28/2018 Hypercholesteremia Family History Medical History Relation Name Comments Diabetes Brother 1 Clinton Fane Arthritis Brother 2 Valentin Fane Colon cancer Cousin cousin Diabetes Maternal Grandmother Clinton Fane Rheum arthritis Maternal Grandmother Clinton Reneee Lung cancer Mother chemo- at 72 Thyroid disease Mother Arthritis Sister 1 Clinton Fane0 Diabetes Sister 1 Clinton Fane0 Hypertension Sister 1 Clinton Fane0 Arthritis Sister 2 Fiona fane Colon cancer Sister 2 Fiona fane Relation Name Status Comments Brother 1 Clinton Fane Alive Brother 2 Valentin Fanodell Alive Cousin Father Maternal Grandfather Maternal Grandmother Clinton Fane Mother Paternal Grandfather Paternal Grandmother Sister 1 Clinton Fane0 Alive Sister 2 Fiona fane Social History Tobacco Use Types Packs/Day Years [...] on file Legal Sex Male 12:47 AM SAND AND GRAVEL PLANT OPERATOR Gender Identity Male 09/22/2019 8:44 AM CDT Sexual Orientation Straight 09/22/2019 8: 44 AM CDT Occupation Industry Job Start Date Job End Date [employer] Not on file Not on file Not on file Obstetrics History Last Filed Vital Signs Vital Sign Reading Time Taken Comments Blood Pressure 119/80 04/03/2024 10:00 AM S[employer] AND G[employer]EL PLANT OPERATOR Pulse 92 04/03/2024 10:00 AM S[employer] AND G[employer]EL PLANT OPERATOR Temperature 37 C (98.6 F) 04/03/2024 10:00 AM S[employer] G[employer]EL PLANT OPERATOR Respiratory Rate 20 04/03/2024 10:00 AM S[employer] AND G[employer]EL PLANT OPERATOR Oxygen Saturation 98% 04/03/2024 10:00 AM S[employer] G[employer]EL PLANT OPERATOR Inhaled Oxygen Concentration - - Weight 118.8 kg (262 lb) 04/03/2024 10:00 AM S[employer] AND G[employer]EL PLANT OPERATOR Height 177.8 cm (5' 10 ) 04/03/2024 10:00 AM SAND AND GRAVEL PLANT OPERATOR Body Mass Index 37.59 04/03/2024 10:00 AM S[employer] AND GRA[employer]EL PLANT OPERATOR Plan of Treatment Health Maintenance Due Date Last Done Comments Hepatitis C Screening 1975 Hepatitis B Screening 12/09/1993 Regular Well Visit/Exam 18-64 01/03/2023 01/03/2022, 06/17/2020, 04/26/2018 Covid-19 Vaccine ( season) 2023 11/11/2020, 10/14/2020 Hemoglobin A1C 08/04/2024 02/05/2024, 10/17, 08/02/2023, Additional history exists Dilated Eye Exam 09/21/2024 09/22/2023, 09/2022, 02/14/2021 Albumin Creatinine Ratio, Urine 02/04/2025 02/05/2024, 05/07/2023, 04/05/2022, Additional history exists Lipid Panel 02/04/2025 02/05/2024, 04/19, 04/05/2022, Additional history exists eGFR 02/04/2025 02/05/2024, 04/19, 08/17/2022, Additional history exists Depression Screening 02/28/2025 02/29/2024, 02/05/2024, 11/05/2023, Additional history exists Foot Exam 02/28/2025 02/29/2024, 07/17, 01/03/2023, Additional history exists Pneumococcal vaccine <65 (1 of 2 - PCV) 03/18/2025 Postponed from 12/09/1994 (Insurance / Financial) Prostate Cancer Screening-PSA 05/07/2025 05/07/2023, 08/17/2022, 04/05/2022, Additional history exists DTaP/Tdap/Td Vaccine (1 - Tdap) 02/22/2027 02/21/2017 Postponed from 02/22/2017 (Provider's clinical decision) Colon Cancer Screening-Colonoscopy 01/22/2030 01/23/2020 Influenza Vaccine Completed 02/05/2024, 02/21/2017 Procedures Procedure Name Priority Date/Time Associated Diagnosis Comments EGFR Routine 02/05/2024 2:12 PM S[employer] AND GRAVEL PLANT OPERATOR Hyperlipidemia associated with type 2 diabetes mellitus (HCC) HEMOGLOBIN A1C Routine 02/05/2024 2:12 PM S[employer] G[employer] PLANT OPERATOR Hyperlipidemia associated with type 2 diabetes mellitus (HCC) Hypertension associated with diabetes (HCC) LIPID PANEL Routine 02/05/2024 2:12 PM SAND AND GRAVEL PLANT OPERATOR Hypertension associated with diabetes (HCC) ALBUMIN CREATININE RATIO, URINE Routine 02/05/2024 2:12 PM SAND AND GRAVEL PLANT OPERATOR Hyperlipidemia associated with type 2 diabetes mellitus (HCC) Hypertension associated with diabetes (HCC) HM DIABETES EYE EXAM Routine 09/22/2023 7:38 AM CDT PSA SCREEN Routine 05/07/2023 11:53 AM SAND AND GRAVEL PLANT OPERATOR Screening for prostate cancer COLONOSCOPY Routine 01/23/2020 from Last 3 Months or Most Recently Relevant to Health Maintenance Results * eGFR (02/05/2024 2:12 PM SAND AND GRAVEL PLANT OPERATOR) eGFR 77 >=60 mL/min/1. 73 m2 Comment: [...] last reviewed 2021. Blood 02/05/2024 2:12 PM SAND AND GRAVEL PLANT OPERATOR 02/05/2024 9:39 PM SAND AND GRAVEL PLANT OPERATOR Jordy Parra MD LAB BLOOD ORDERABLES Final Result Performing Organization Address [facility] Phone Number LUZSHERRY [address] [place] [address] * (ABNORMAL) Albumin Creatinine Ratio, Urine (02/05/2024 2:12 PM SAND AND GRAVEL PLANT OPERATOR) Pathologist [facility] Albumin Ur 36.0 mg/L Comment: Interpretive Data No reference range established. Current interpretive data was last revised 2018. Creatinine Ur 49.0 mg/dL [facility] Comment: Interpretive Data No reference range established. Current interpretive data was last revised 2018. Albumin Creatinine Ratio, Ur 73(H) 1 - 29 mg/g [facility] Urine 02/05/2024 2:12 PM SAND AND GRAVEL PLANT OPERATOR 02/05/2024 9:22 PM SAND AND GRAVEL PLANT OPERATOR Jordy Parra MD LAB URINE ORDERABLES Final Result Performing Organization Address [facility] Co de Phone Number SENDY [address] [employer] [place], [place] [id number] * Hemoglobin A1c (02/05/2024 2:12 PM SAND AND GRAVEL PLANT OPERATOR) Pathologist [facility] Hgb A1C 4.9 4.0 - 5.6 % Estimated Average Glucose 94 mg/dL SENDY Comment: The ADA recommends reporting an estimated Average Glucose (eAG) with all Hemoglobin A1c results using the equation derived from a study of 507 normal and diabetic adults. Minority populations were underrepresented and children were not included. (Diabetes Care 31:9793-0719, 2008). The eAG is not equivalent to a fasting glucose. Blood 02/05/2024 2:12 PM SAND AND GRA[employer]EL PLANT OPERATOR 02/05/2024 9:22 PM SAND AND GRAVEL PLANT OPERATOR us Jordy Parra MD LAB BLOOD ORDERABLES Final Result Performing Organization Address City/State/ZIP [place] Phone Number SENDY [place] [address] Department [place] [address] * (ABNORMAL) Lipid panel (02/05/2024 2:12 PM SAND AND GRAVEL PLANT OPERATOR) Cholesterol 74 30 - 199 mg/dL Comment: [...] mg/dL High: >160 mg/dL Calculated using the [place] LDL-C estimating equation. This equation was implemented on 2023. Prior to this date LDL-C was estimated using the Friedewald equation. Literature References: 1. Expert Panel on Integrated Guidelines for Cardiovascular Health and Risk Reduction in Children and Adolescents. Pediatrics 2011;128:S213 2. NCEP Expert Panel. Circulation 2004;110:227 3. Ketlon Vega et al. JENS Cardiol. 2019July 17;5(5):540-548. [...] last revised on 2017. Chol/HDL ratio 2 SN[place]Y [place] Blood 02/05/2024 2:12 PM SAND AND GRAVEL PLANT OPERATOR 02/05/2024 9:22 PM SAND AND GRAVEL PLANT OPERATOR Jordy Parra MD LAB BLOOD ORDERABLES Final Result Performing Organization Address City/[facility] Co de Phone Number SENDY [place] [phone] [employer] [place], [place] [id number] * HM DIABETES EYE EXAM (09/22/2023 7:38 AM CDT) Jose R Sanchez MD HEALTH MAINTENANCE Final Result * PSA screen (05/07/2023 11:53 AM S[employer]EL PLANT OPERATOR) PSA-Total 0.22 ng/mL SENDY Comment: Interpretive Data AGE SEX REFERENCE INTERVAL [...] revised 21. Blood 05/07/2023 11:5 3 AM S[employer] AND G[employer]VEL PLANT OPERATOR 05/07/2023 6:00 PM SAND AND GRAVEL PLANT OPERATOR Jordy Parra MD LAB BLOOD ORDERABLES Final Result Performing Organization Address [facility] Co de Phone Number SENDY [place] [address] [address] [place] [address] * (ABNORMAL) Colonoscopy (01/23/2020) Anatomical Region Laterality Modality Other Jose Cruz Winn MD ENDOSCOPY PROCEDURES Final Res ult from Last 3 Months or Most Recently Relevant to Health Maintenance Insurance [employer] ACCESS CHOICE [employer] ACCESS CHOICE [employer] ACCESS CHOICE Care Teams Park Worker Supervisor Relationship Specialty Start Date End Date Jordy Parra MD [address] [place] [address] PCP - General Family Medicine 05/07/23 Shama Patel, WES [address] [facility] [address] [address] Family Medicine 02/22/17 [place] [address] [address] [facility] [address] [place] [address] Consulting Physician Endocrinology 05/07/23 Jacque Franks OD [address] [place] [address] Optometry 05/07/23
--- OUTSIDE RECORDS SUMMARY | 2024-06-13 02:35 | XMS_ITS | Clinical Summary ---
Author Organization [facility] Address [address] [place] [address] Care Team Providers Care Pharmacist'S Aide Name Role Phone Maximino Weeks Primary Care Provider [phone] Source Comments [facility],non-owned Affiliates and Associated Physician Practices is amultiple site organization consisting of ambulatory clinics and hospital sitesin [place], [place], [place] and [place]. This disclosure is being madepursuant to the Care Everywhere program and may not contain all information available regarding this patient. Last updated 17.[facility] Allergies No known active allergies Medications * Be aware that medications may not be up to date on this document. Alwaysverify current medications with the patient. Medication Sig Dispensed Refills Start Date End Date Status lisinopril (PRINIVIL; ZESTRIL) 20 MG tablet Take 20 mg by mouth once daily [facility]. (Christy) Active METFORMIN HCL PO Active HYDROcodone-acetamino phen (HYCET) 7.5-325 MG/15ML solution Take 10-15 mL by mouth every 4 hours as needed for Pain 473 mL 04/19/2016 Active Active Problems Problem Noted Date Diagnosed Date Disease of tonsils 04/18/2016 Social History Tobacco Use Types Packs/Day Years Used Date Smoking Tobacco: Every Day Comments: vape Alcohol Use Standard Drinks/Week Comments No 0 (1 standard drink = 0.6 oz pur e alcohol) Sex and Gender Information Value Date Recorded Sex Assigned at Not on file Gender Identity Not on file Sexual Orientation Not on file Last Filed Vital Signs Vital Sign Reading Time Taken Comments Blood Pressure 127/82 04/19/2016 10:15 AM DIVER ASSISTANT Pulse 77 04/19/2016 10:20 AM DIVER ASSISTANT Temperature 36.8 C (98.3 F) 04/19/2016 8:20 AM DIVER ASSISTANT Respiratory Rate 18 04/19/2016 9:40 AM DIVER ASSISTANT Oxygen Saturation 99% 04/19/2016 10: 20 AM DIVER ASSISTANT Inhaled Oxygen Concentration - - Weight 132.1 kg (291 lb 3.2 oz) 04/19/2016 6:47 AM DIVER ASSISTANT Height 175.3 cm (5' 9 ) 04/19/2016 6:47 AM DIVER ASSISTANT Body Mass Index 43 04/19/2016 6:47 AM DIVER ASSISTANT Plan of Treatment Health Maintenance Due Date Last Done Comments COLOGUARD (AGES 45-75) - COL ON CA SCREENING 1975 COLON MONITORING 1975 COLONOSCOPY - COLON CA SCREENING 1975 CT COLONOGRAPHY - COLON CA SCREENING 1975 Colorectal Cancer Screening 1975 FIT - COLON CA SCREENING 1975 FLEX SIG - COLON CA SCREENING 1975 LIPID TESTING 1975 HIV SCREENING 12/09/1990 HEPATITIS C SCREENING 12/05/1993 DTAP/TDAP/TD VACCINES (1 - Tdap) 12/09/1994 HEPATITIS B VACCINE (1 of 3 - 19+ 3-dose series) 12/09/1994 COVID-19 VACCINE ( - 2023-2 5 season) 2023 INFLUENZA VACCINE (#1) 2023 DEPRESSION SCREENING 03/19/2024 ZOSTER VACCINE (1 of 2) 12/09/2025 HIB VACCINE Aged Out No longer eligi ble based on patient's age to complete this topic HPV VACCINE Aged Out No longer eligi ble based on patient's age to complete this topic MENINGOCOCCAL (Group B) VACC INE SHARED DECISION-MAKING Aged Out No longer eligibl e based on patient's age to complete this topic MENINGOCOCCAL GROUPS A/C/Y/W VACCINE Aged Out No longer eligible b ased on patient's age to complete this topic PNEUMOCOCCAL VACCINE Aged Out No long er eligible based on patient's age to complete this topic Care Teams Pharmacist'S Aide Relationship Specialty Start Date End Date Maximino Weeks DO [address] [facility] [address] [place] [place] [address] PCP - General Internal Medicine 01/19/15
--- OUTSIDE RECORDS SUMMARY | 2024-06-13 02:35 | XMS_ITS | Encounter Summary ---
Author Organization [facility] Healthcare Address [address] [place] [address] Care Team Providers Care Verifying Specialist Name Role Phone Shama Patel NP Unavailable Shama Patel NP Primary Care Provider Kvng Wang MD Primary Care Provider [phone] Jordy Parra MD Primary Care Provider [phone] Claribel Valentin MD Unavailable [phone] Jacque Franks OD Unavailable [phone] Encounter Details Date Type Department Care Team (Late st Contact Info) Description 09/22/2019 E-[address] 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 Gender Identity Male 09/22/2019 8:44 AM CDT Sexual Orientation Straight 09/22/2019 8: 44 AM CDT Occupation Industry Job Start Date Job End Date Javi Tovar Not on file Not on file Not on file documented as of this encounter Plan of Treatment Not on file documented as of this encounter Visit Diagnoses Diagnosis Diarrhea, unspecified type- Primary documented in this encounter Additional Health Concerns Infection Onset Date Last Indicated Resolved Time COVID: Suspected 09/22/2019 09/22/2019 10/06/2019 3:05 AM CDT COVID: Suspected 02/14/2023 02/14/2023 02/14/2023 2:53 PM BLASTING [employer]ER documented as of this encounter Care Teams Verifying Specialist Relationship Specialty Start Date End Date Shama Patel, WES [address] [facility] [address], [place] [address] PCP - General Family Medicine 07/02/17 07/19/22 Kvng Wang MD [address] [facility] [address], [place] [address] PCP - General Family Medicine 08/17/22 05/06/23 Jordy Parra MD [address] [facility] [address] [place] [address] PCP - General Family Medicine 05/07/23 Shama Patel NP [address] [facility] [address], [place] [address] Family Medicine 02/22/17 [place] [address] [facility] [address] [place] [address] Consulting Physician Endocrinology 05/07/23 Jacque Franks OD [address] [address] Optometry 05/07/23 documented as of this encounter
--- OUTSIDE RECORDS SUMMARY | 2024-06-13 02:35 | XMS_ITS | Continuity of Care Document ---
Author Organization [facility] Address [address] [place] [address] Phone Care Team Providers Care Humidifier Maintenance Worker Name Role Phone Desi Maximino Unavailable Unavailable [...] for pain - Active called into pharmacy [phone] 06/15/15 NAPROXEN 500MG TABLETS TAKE 1 TABLET [...] Diagnoses Date Provider Providers Copied on Encounter [facility], [address], [place], [place], [address] , tel: [phone] [facility] No Information 0 Desi Stanton. [address] [facility], [address], [id number] , . tel: [phone] [facility], [address], [place], [place], [address] , tel: [phone] [facility] No Information 0 Pa Billingsley. [address] [place], [place], [address] , . tel: [phone] Referring Provider: Maximino Weeks, [address], [address] . tel:[phone] [facility], [address] [place] [address], [id number] , tel: [phone] [facility] No Information 0 Pa Billingsley. [address] [place], [place], [address] , . tel: [phone] Referring Provider: Jessica Schaefer, [address] [facility] [address], [place], [address]. tel:[phone] [facility], [address], [address] , tel: [phone] [facility] No Information 7 Jeff Branch. [address] [place], [place], [address] , . tel: [phone] [facility], [address], [address] , [place] tel: [phone] [facility] No Information 7 Desi Stanton. [address] [facility], [address], [address] , . tel: [phone] [facility], [address], [place], [place], [address] , tel: [phone] [facility] Morbid obesity due to excess caloriesType 2 diabetes mellitus without complicationHTN (hypertension), benignLumbar back pain with radiculopathy affecting right lower extremity 6 Desi Maximino. [address] [facility], [address], [address] , . tel: [phone] Referring Provider: Maximino Weeks, [address], [address] . tel:[phone] [facility], [address], [place], [place], [address] , tel: [phone] [facility] No Information 6 Desi Maximino. [address] [facility], [address], [address] , [place]. tel: [phone] [facility], [address], [place], [place], [address] , tel: [phone] [facility] No Information 6 Jeff Branch. [address], [place], [place], [address] , . tel: [phone] [facility], [address], [place], [place], [address] , [place] tel: [phone] [facility] No Information 6 Lexx Chavez . [address], [place], [place], [address] , . tel: [phone] [facility], [address], [place], [place], [address] , tel: [phone] [facility] Type 2 diabetes mellitus with complication 6 Lexx Chavez . [address], [place], [place], [address] , . tel: [phone] Referring Provider: Maximino Weeks, [address], [address] . tel:[phone] [facility], [address], [place], [place], [address] , tel: [phone] [facility] No Information 6 Desi Maximino. [address] [facility], [address], [address] , . tel: [phone] [facility], [address], [place], [place], [address] , tel: [phone] [facility] No Information 3 0 5 Desi Maximino. [address], [address] , . tel: [phone] [facility], [address], [place], [place], [address] , tel: [phone] [facility] Lumbar back pain with radiculopathy affecting right lower extremityMorbid obesity due to excess caloriesHypertensi on, benignParesthesiaM ixed hyperlipidemia 5 Desi Maximino. [address], [address] , . tel: [phone] Referring Provider: Maximino Weeks, [address], [address] . tel:[phone] [facility], [address], [place], [place], [address] , tel: [phone] [facility] Sciatica, unspecified laterality 5 Desi Maximino. [address], [address] , . tel: [phone] [facility], [address], [place], [place], [address] , tel: [phone] [facility] Sciatica, right side 0 5 Desi Maximino. [address], [address] , . tel: [phone] Referring Provider: Maximino Weeks, [address], [address] . tel:[phone] [facility], [address], [place], [place], [address] , tel: [phone] [facility] Benign essential hypertensionBack painSciatic leg painScreening for diabetes mellitusMixed hyperlipidemiaColo n cancer screening 5 Lexx Chavez . [address], [place], [place], [address] , . tel: [phone] Referring Provider: Maximino Weeks, [address], [address] . tel:[phone] [facility], [address], [place], [place], [address] , tel: [phone] [facility] No Information 4 Desi Stanotn. [address] [facility], [address], [address] , . tel: [phone] [facility], [address], [place], [place], [address] , tel: [phone] [facility] Benign essential hypertensionRight knee painLipomaMixed hyperlipidemia 4 [facility] Roberts. [address], [facility] [place], [place], [address] . tel: [phone] Referring Provider: Maximino Weeks, [address], [address] . tel:[phone] [facility], [address], [place], [place], [address] , tel: [phone] [facility] Benign essential hypertensionHEMATU NATALIIA NOSDisturbance of skin sensation 2 Desi Stanton. [address] [facility], [address], [address] , . tel: [phone] Referring Provider: Maximino Weeks, [address], [address] . tel:[phone] [facility], [address], [place], [place], [address] , tel: [phone] [facility] Benign hypertensionFamily history of premature coronary heart diseaseAtypical chest painHeartburnPares thesias/numbnessHe maturiaGroin painScreening for diabetes mellitus 2 Desi Stanton. [address] [facility], [address], [address] , . tel:[phone] Referring Provider: Maximino Weeks, [address], [place], [address] . tel:[phone] Family History Family Member Type Diagnosis Age [...]
--- OUTSIDE RECORDS SUMMARY | 2024-06-13 02:35 | XMS_ITS | CONTINUITY OF CARE DOCUMENT ---
Author Name geo [facility]ado Address Unknown Organization [facility] Address [address] [facility] [address] [place] [address] Phone [phone] Care Team Providers Care Digital Marketing Executive Name Role Phone Ryan MCFADDEN, Unavailable [phone] GUZMAN RODRIGUES DO Unavailable GUZMAN RODRIGUES DO Unavailable INSURANCE PROVIDERS Payer name Policy type / Coverage type [place] red democrat ID [facility] [id number] Other [id number]
[2024-06-13 02:43] VITALS: BP 138/82; PULSE 74; RESP 12; TEMP 36.7; O2SAT 100
[2024-06-13 02:56] LABS: Basophils Absolute Auto 0.1 K/mm3 (0.0-0.1); Basophils Percent Auto 1.2 % (0.2-1.2); Eosinophils Absolute Auto 0.3 K/mm3 (0-0.3); Hematocrit 41.4 % (42.0-52.0); Hemoglobin 14.2 g/dL (14.0-18.0); Immature Granulocyte Absolute 0.03 K/mm3 (0.00-0.031); Immature Granulocyte Percent A 0.5 % (0-0.5); Lymphocytes Absolute Auto 2.62 K/mm3 (0.9-3.2); Lymphocytes Percent Auto 39.6 % (18.3-44.2); Mean Corpuscular HGB Conc 34.3 g/dl (32-36); Mean Corpuscular Hemoglobin 28.1 pg (26-34); Mean Corpuscular Volume 81.8 fl (80-100); Mean Platelet Volume 9.6 fl (7.4-10.4); Monocytes Absolute Auto 0.7 K/mm3 (0.1-0.6); Monocytes Percent Auto 10.1 % (2.6-8.5); Neutrophils Absolute Auto 2.9 K/mm3 (1.3-6.7); Neutrophils Percent Auto 43.6 % (45.5-73.1); Platelet Count Result 202 k/mm3 (150-375); Red Blood Count 5.06 M/mm3 (4.6-6.20); White Blood Count 6.6 K/mm3 (4.5-10.0)
[2024-06-13 02:58] LABS: Add Urine Microscopic? YES; Appearance Urine Clear (Clear); Bilirubin Urine Negative (Negative); Blood Urine Negative (Negative); Color Urine Yellow (Yellow); Glucose Urine UA 3+ mg/dL (Negative); Ketones Urine Negative (Negative); Leukocyte Esterase Ur Negative LEU/UL (Negative); Nitrate Urine Negative (Negative); Protein Urine Negative (Negative); Specific Grav Ur 1.016 (1.001-1.035); pH Urine 7.5 (5.0-9.0)
[2024-06-13 03:07] LABS: Alanine Aminotransferase 32 U/L (6-50); Albumin Level 4.5 g/dL (3.5-5.1); Alkaline Phosphatase 60 U/L (38-126); Anion Gap 12 mmol/L (4-12); Aspartate Amino Transferase 23 U/L (17-59); Bilirubin,Total 1.9 mg/dL (0.2-1.3); Blood Urea Nitrogen 15 mg/dL (9-20); Calcium 9.8 mg/dL (8.4-10.2); Carbon Dioxide 23 mmol/L (22-30); Chloride 104 mmol/L (98-107); Estimated CRCL calculation 99 ml/min; Estimated Glomerular Filt Rate > 60; Glucose 113 mg/dL (65-110); Potassium 4.1 mmol/L (3.4-5.0); Sodium 139 mmol/L (137-145)
--- OUTSIDE RECORDS SUMMARY | 2024-06-13 03:19 | XMS_ITS | Continuity of Care Document ---
Author Organization [email or web address] Address [address] [place] [address] Phone Care Team Providers Care Director Music Name Role Phone Desi Maximino Unavailable Unavailable [...] for pain - Active called into pharmacy [phone] 06/15/15 NAPROXEN 500MG TABLETS TAKE 1 TABLET [...] Diagnoses Date Provider Providers Copied on Encounter [email or web address], [address], [place], [place], [address] , tel: [phone] [facility] No Information 0 Desi Stanton. [address] [facility], [address], [address] , . tel: [phone] [facility], [address], [place], [place], [address] , tel: [phone] [facility] No Information 0 Pa Billingsley. [address] [place], [place], [address] , . tel: [phone] Referring Provider: Maximino Weeks, [address], [address] . tel:[phone] [facility], [address] [place] [address], [address] , tel: [phone] [facility] No Information 0 Pa Billingsley. [address] [place], [place], [address] , . tel: [phone] Referring Provider: Jessica Schaefer, [address] [facility] [address], [address]. tel:[phone] [facility], [address], [place], [address] , tel: [phone] [facility] No Information 7 Jeff Branch. [address] [place], [place], [address] , . tel: [phone] [facility], [address], [place], [address] , [place] tel: [phone] [facility] No Information 7 Desi Stanton. [address] [facility], [address], [address] , . tel: [phone] [facility], [address], [place], [place], [address] , tel: [phone] [facility] Morbid obesity due to excess caloriesType 2 diabetes mellitus without complicationHTN (hypertension), benignLumbar back pain with radiculopathy affecting right lower extremity 6 Desi Maximino. [address] [facility], [address], [address] , . tel: [phone] Referring Provider: Maximino Weeks, [address], [address] . tel:[phone] [facility], [address], [place], [place], [address] , tel: [phone] [facility] No Information 6 Desi Maximino. [address] [facility], [address], [address] , [place]. tel: [phone] [facility], [address], [place], [place], [address] , tel: [phone] [facility] No Information 6 Jeff Branch. [address], [place], [place], [address] , . tel: [phone] [facility], [address], [place], [place], [address] , [place] tel: [phone] [facility] No Information 6 Lexx Chavez . [address], [place], [place], [address] , . tel: [phone] [facility], [address], [place], [place], [address] , tel: [phone] [facility] Type 2 diabetes mellitus with complication 6 Lexx Chavez . [address], [place], [place], [address] , . tel: [phone] Referring Provider: Maximino Weeks, [address], [address] . tel:[phone] [facility], [address], [place], [place], [address] , tel: [phone] [facility] No Information 6 Desi Maximino. [address] [facility], [address], [address] , . tel: [phone] [facility], [address], [place], [place], [address] , tel: [phone] [facility] No Information 3 0 5 Desi Maximino. [address], [address] , . tel: [phone] [facility], [address], [place], [place], [address] , tel: [phone] [facility] Lumbar back pain with radiculopathy affecting right lower extremityMorbid obesity due to excess caloriesHypertensi on, benignParesthesiaM ixed hyperlipidemia 5 Desi Maximino. [address], [address] , . tel: [phone] Referring Provider: Maximino Weeks, [address], [address] . tel:[phone] [email or web address], [address], [place], [place], [address] , tel: [phone] [facility] Sciatica, unspecified laterality 5 Desi Maximino. [address], [address] , . tel: [phone] [facility], [address], [place], [place], [address] , tel: [phone] [facility] Sciatica, right side 0 5 Desi Maximino. [address], [address] , . tel: [phone] Referring Provider: Maximino Weeks, [address], [address] . tel:[phone] [facility], [address], [place], [place], [address] , tel: [phone] [facility] Benign essential hypertensionBack painSciatic leg painScreening for diabetes mellitusMixed hyperlipidemiaColo n cancer screening 5 Lexx Chavez . [address], [place], [place], [address] , . tel: [phone] Referring Provider: Maximino Weeks, [address], [address] . tel:[phone] [facility], [address], [place], [place], [address] , tel: [phone] [facility] No Information 4 Desi Stanton. [address] [facility], [address], [address] , . tel: [phone] [facility], [address], [place], [place], [address] , tel: [phone] [facility] Benign essential hypertensionRight knee painLipomaMixed hyperlipidemia 4 [facility] Roberts. [address], [facility] [place], [place], [address] . tel: [phone] Referring Provider: Maximino Weeks, [address], [address] . tel:[phone] [facility], [address], [place], [place], [address] , tel: [phone] [facility] Benign essential hypertensionHEMATU NATALIIA NOSDisturbance of skin sensation 2 Desi Stanton. [address] [facility], [address], [address] , . tel: [phone] Referring Provider: Maximino Weeks, [address], [address] . tel:[phone] [email or web address], [address], [place], [place], [address] , tel: [phone] [facility] Benign hypertensionFamily history of premature coronary heart diseaseAtypical chest painHeartburnPares thesias/numbnessHe maturiaGroin painScreening for diabetes mellitus 2 Desi Stanton. [address] [facility], [address], [address] , . tel:[phone] Referring Provider: Maximino Weeks, [address], [place], [address] . tel:[phone] Family History Family Member Type Diagnosis Age [...]
--- OUTSIDE RECORDS SUMMARY | 2024-06-13 03:19 | XMS_ITS | CONTINUITY OF CARE DOCUMENT ---
Author Name geo guardado Address Unknown Organization [facility] Address [address] [employer] [facility] [address] [place] [address] Phone [phone] Care Team Providers Care Fixed Wing Pilot Name Role Phone Ryan MCFADDEN, Unavailable [phone] GUZMAN RODRIGUES DO Unavailable [phone] GUZMAN RODRIGUES DO Unavailable INSURANCE PROVIDERS Payer name Policy type / Coverage type [place] red libertarian ID [facility] [id number] Other [id number]
--- OUTSIDE RECORDS SUMMARY | 2024-06-13 03:19 | XMS_ITS | Referral Summary ---
Author Organization [facility] Address [address] [place] [address] Phone Care Team Providers Care Pulmonary Specialist Name Role Phone Shama Patel NP Unavailable [phone] Jordy Parra MD Primary Care Provider Claribel Valentin MD Unavailable [phone] Jacque Franks OD Unavailable [phone] Encounters Date Type Department Care Team Description 05/15/2024 Telephone [facility] [address] [place] [address] Arnel Carter II, MD 04/11/2024 Telephone [facility] [address] [place] [address] [address] [place] [address] Yareli Ojeda MA 04/03/2024 10:00 AM CABLEMAN Office Visit [facility] [place] [id number] [place] [address] Michele Gong NP Neck pain, bilateral (Primary Dx); Mass of right lower leg 04/03/2024 Patient Self-Triage [facility] [address] [place] [address] Mychart, Generic Provider from Last [...] 05/07/2023 Assessment & Plan (05/07/2023 11:39 AM CABLEMAN): A(n) initial visit to establish care has [...] 04/26/2022 Assessment & Plan (02/29/2024 11:46 AM CABLEMAN): Patient on statin therapy Tolerating well Assessment & Plan (08/02/2023 11:07 AM CDT): Patient on statin therapy Tolerating well Assessment & Plan (01/03/2023 10:35 AM CDT): Patient on statin therapy Tolerating well Assessment & Plan (08/21/2022 7:40 PM CDT): Patient on statin therapy Tolerating well Assessment & Plan (04/26/2022 12:59 PM CABLEMAN): Patient on statin therapy Tolerating well Uncontrolled type 2 diabetes mellitus with hyper glycemia 01/03/2022 Assessment & Plan (04/09/2022 7:57 PM CABLEMAN): Labs today. Continue current Toujeo, Humalog, metformin. [...] yr. Assessment & Plan (03/17/2019 10:15 PM CABLEMAN): Needs to schedule colonoscopy. Counseled. Assessment & Plan (11/03/2018 9:35 PM CDT): Colonoscopy and GI consult ordered. Type 2 diabetes mellitus with nephropathy 2018 Assessment & Plan (01/03/2022 5:07 PM CDT): Labs as ordered. Continue lisinopril 20. Assessment & Plan (05/15/2021 6:28 PM CABLEMAN): Labs today. Continue current lisinopril 20. Assessment [...] worsening. Assessment & Plan (05/04/2018 7:09 PM CABLEMAN): Podiatry referral offered has info. Assessment & Plan (07/02/2017 9:32 AM CDT): Great toes bilaterally. Also noted to have linear pattern across instep of bilateral feet. OTC ketocaonzole powder/lotrimin recommended. Class 2 severe obesity due t o excess calories with serious comorbidity and body mass index (BMI) of 37.0 to 37.9 in adult 02/21/2017 Assessment & Plan (02/29/2024 11:47 AM CABLEMAN): Chronic, worsening Discussed about healthy lifestyle habits [...] loss Assessment & Plan (05/07/2023 11:43 AM CABLEMAN): BMI Follow-up includes: nutrition counseling, exercise counseling, and education provided. Assessment & Plan (01/03/2023 10:36 AM CDT): Chronic, still above goal, slowly improving Counseled on diet and exercise Assessment & Plan (08/21/2022 7:40 PM CDT): Counseled on diet and exercise Assessment & Plan (04/26/2022 12:58 PM CABLEMAN): Counseled on diet and exercise Assessment & Plan (04/09/2022 7:56 PM CABLEMAN): Worsening. Body mass index is 42.53 kg/m [...] pt. Assessment & Plan (05/10/2021 9:17 AM CABLEMAN): Body mass index is 42.38 kg/m . Up 2 lb since ROMEO. Off of trulicity due to rash. He has been limiting carbs, but not counting. Counseled. Assessment & Plan (03/07/2021 5:35 PM CABLEMAN): Body mass index is 42.15 kg/m . reports at home he is down 176. Still struggling to determine what he can or cannot be. Has not utilized [place] [employer] website to assist with meal planning. Counseled. Assessment & Plan (02/22/2021 6:36 AM CABLEMAN): Wt loss con't 2 lb. Struggling to determine dietary intake appropriate for diabetes. Working with ag service manager. Again given carb intake recommendations for snack/meal/proteins. Assessment & Plan (02/14/2021 7:13 PM CABLEMAN): BMI Follow-up includes: nutrition counseling. Body mass [...] risk/benefit. Assessment & Plan (03/17/2019 10:11 PM CABLEMAN): Worsening. Recommend healthy varied diet with minimal processed foods, increased amounts of fruits and vegetables and low fat and cholesterol levels-no fried, high fat or high sugar foods. Avoidance of luxembourgish fried and other fried foods to start. Assessment & Plan (10/28/2018 3:10 PM CDT): Improving. Not eating concentrated sweets. Continue. Assessment & Plan (05/04/2018 7:11 PM CABLEMAN): Obesity is worsening. BMI Follow-up includes: nutrition counseling, exercise counseling, education provided and referral to ag service manager. Assessment & Plan (10/31/2017 6:08 PM CDT): Obesity is unchanged. Reports some stress. Is trying to adjust diet. Exercise recommended outside of work. Assessment & Plan (07/02/2017 9:30 AM CDT): Obesity is improving with lifestyle modifications. Lost 11 lb since ROMEO. Encouraged to exercise outside of work. Assessment & Plan (03/28/2017 9:38 AM CABLEMAN): RACHEL saxena, my fitness pal reviewed. Instructed to increase physical activity-portions control. Assessment & Plan (02/21/2017 5:42 PM CABLEMAN): Obesity is newly identified. walking at work.Portion control discussed. 1800 [address]gg diet. Informal exercise measures discussed, e.g. taking stairs instead of elevator. Handouts provided. My fitness pal and calorie counter ap discussed-opened in ov. Type 2 diabetes mellitus wit h circulatory disorder, with long-term current use of insulin 03/19/2015 Assessment & Plan (02/29/2024 11:47 AM CABLEMAN): Chronic, overall well controlled A1c 4.9% Reviewed [...] weekly Assessment & Plan (04/26/2022 12:59 PM CABLEMAN): Chronic, , uncontrolled, worsening A1c 8.3% Counseled [...] months Assessment & Plan (04/09/2022 7:59 PM CABLEMAN): Continue Toujeo 20 units q.a.m. 10 units [...] progress. Assessment & Plan (05/15/2021 6:29 PM CABLEMAN): Labs today. Continue current toujeo 6 un, sliding scale novolin, and metformin will be changed to er due to continued diarrhea. Stopped GLP1 due to rash at site- true hive. Will discuss with pharmacist to determine cross-believe all in class will cause similar. Assessment & Plan (03/07/2021 5:37 PM CABLEMAN): Decreased toujeo from 10 to 5 units [...] antibiotic. Assessment & Plan (02/22/2021 6:35 AM CABLEMAN): Improving. Not to goal. Blood sugar into the 260s fbg and lowest 160. Start toujeo 10 un nightly. Con't SSI. Con't metformin and trulicity. Assessment & Plan (02/14/2021 5:10 PM CABLEMAN): Newly worsening. Counseled carb should be no [...] unknown. Assessment & Plan (03/17/2019 10:13 PM CABLEMAN): Labs today. Continue current. Counseled on need to see eye doctor annually. Declined flu vaccine. Log would be helpful to help manage. Wt Loss recommended. Assessment & Plan (10/28/2018 3:09 PM CDT): A1C 5.1% today. Blood sugar in OV 128. Continue metformin as directed. Continue to monitor. Counseled to acquire eye exam. Assessment & Plan (05/04/2018 7:09 PM CABLEMAN): Labs today. Continue current. Reminded to bring [...] mo. Assessment & Plan (03/28/2017 9:39 AM CABLEMAN): Need log and A1C. Reordered. Tolerating Metformin well. Diabetes will be reassessed in 3 months. Assessment & Plan (02/21/2017 5:44 PM CABLEMAN): Diabetes is newly identified. Reminded to bring in blood sugar diary at next visit. Dietary recommendations for ADA diet. Regular aerobic exercise. Medication changes per orders. ag service manager referral. Diabetes will be reassessed in 1 month. Discussed that may need to have injectable for management to assist with weight loss. Pt reports that he wants to get off of medication for good. Discussed will need to monitor cals. Hypertension associated with diabetes 03/19/2011 Assessment & Plan (02/29/2024 11:46 AM CABLEMAN): Chronic, well controlled Continue lisinopril Assessment & Plan (08/02/2023 11:06 AM CDT): Chronic, well controlled Continue lisinopril Assessment & Plan (01/03/2023 10:35 AM CDT): Chronic, well controlled Continue lisinopril Assessment & Plan (08/21/2022 7:44 PM CDT): Chronic, well controlled Continue lisinopril Assessment & Plan (04/26/2022 12:58 PM CABLEMAN): Chronic, well controlled Continue lisinopril Assessment & Plan (04/09/2022 7:56 PM CABLEMAN): Controlled. Continue current regimen lisinopril 20. Dietary monitoring of sodium intake discussed. Assessment & Plan (01/03/2022 5:05 PM CDT): Controlled. Continue current regimen lisinopril 20. Labs today. Next Assessment & Plan (07/06/2021 2:17 PM CDT): Controlled. Continue current regimen. Assessment & Plan (05/10/2021 9:18 AM CABLEMAN): Controlled. Continue current regimen of lisinopril 20 mg. Assessment & Plan (03/07/2021 5:35 PM CABLEMAN): Controlled. Continue current regimen Lisinopril 20 daily. Assessment & Plan (02/22/2021 6:34 AM CABLEMAN): 110/74 repeat. Did not eat today. He has been drinking fluids-but he has been drinking fluids. Continue current regimen. Assessment & Plan (02/14/2021 5:11 PM CABLEMAN): Controlled. Continue current regimen. Assessment & Plan [...] loss. Assessment & Plan (03/17/2019 10:11 PM CABLEMAN): Controlled. Continue current regimen. Con't dietary monitoring. Recommend regular aerobic exercise for at least 150 minutes weekly-preferably 5 x weekly 30 min. Assessment & Plan (10/28/2018 3:09 PM CDT): Controlled. Continue current regimen. Continue to work on weight loss. Assessment & Plan (05/04/2018 7:11 PM CABLEMAN): Hypertension is improving with treatment. Dietary sodium [...] mo.. Assessment & Plan (03/28/2017 9:38 AM CABLEMAN): Controlled on current lisinopril 20 daily. Labs reordered-he reports he got stuck-no records. Sodium restriction. Exercise. 3 mo f/u. Assessment & Plan (02/21/2017 3:12 PM CABLEMAN): Hypertension is newly identified. Dietary sodium restriction. [...] loss. Assessment & Plan (03/17/2019 10:23 PM CABLEMAN): Counseled on importance of HEP. Wanting imaging. [...] on file Legal Sex Male 12:47 AM CABLEMAN Gender Identity Male 09/22/2019 8:44 AM CDT Sexual Orientation Straight 09/22/2019 8: 44 AM CDT Occupation Industry Job Start Date Job End Date [employer] Not on file Not on file Not on file Last Filed Vital Signs Vital Sign Reading Time Taken Comments Blood Pressure 119/80 04/03/2024 10:00 AM CABLEMAN Pulse 92 04/03/2024 10:00 AM CABLEMAN Temperature 37 C (98.6 F) 04/03/2024 10:00 AM CABLEMAN Respiratory Rate 20 04/03/2024 10:00 AM CABLEMAN Oxygen Saturation 98% 04/03/2024 10:00 AM CABLEMAN Inhaled Oxygen Concentration - - Weight 118.8 kg (262 lb) 04/03/2024 10:00 AM CABLEMAN Height 177.8 cm (5' 10 ) 04/03/2024 10:00 AM CABLEMAN Body Mass Index 37.59 04/03/2024 10:00 AM CABLEMAN Plan of Treatment Not on file Procedures Procedure Name Priority Date/Time Associated Diagnosis Comments EGFR Routine 02/05/2024 2:12 PM CABLEMAN Hyperlipidemia associated with type 2 diabetes mellitus (HCC) HEMOGLOBIN A1C Routine 02/05/2024 2:12 PM CABLEMAN Hyperlipidemia associated with type 2 diabetes mellitus (HCC) Hypertension associated with diabetes (HCC) LIPID PANEL Routine 02/05/2024 2:12 PM CABLEMAN Hypertension associated with diabetes (HCC) ALBUMIN CREATININE RATIO, URINE Routine 02/05/2024 2:12 PM CABLEMAN Hyperlipidemia associated with type 2 diabetes mellitus (HCC) Hypertension associated with diabetes (HCC) HM DIABETES EYE EXAM Routine 09/22/2023 7:38 AM CDT PSA SCREEN Routine 05/07/2023 11:53 AM CABLEMAN Screening for prostate cancer COLONOSCOPY Routine 01/23/2020 from Last 3 Months or Most Recently Relevant to Health Maintenance Results * eGFR (02/05/2024 2:12 PM CABLEMAN) eGFR 77 >=60 mL/min/1. 73 m2 Comment: [...] last reviewed 2021. Blood 02/05/2024 2:12 PM CABLEMAN 02/05/2024 9:39 PM CABLEMAN us Jordy Parra MD LAB BLOOD ORDERABLES Final Result [facility] [address] [place] [address] * (ABNORMAL) Albumin Creatinine Ratio, Urine (02/05/2024 2:12 PM CABLEMAN) [facility] Albumin Ur 36.0 mg/L Comment: Interpretive Data No reference range established. Current interpretive data was last revised 2018. Creatinine Ur 49.0 mg/dL [facility] Comment: Interpretive Data No reference range established. Current interpretive data was last revised 2018. Albumin Creatinine Ratio, Ur 73(H) 1 - 29 mg/g [facility] Urine 02/05/2024 2:12 PM CABLEMAN 02/05/2024 9:22 PM CABLEMAN Result [facility] Jordy Parra MD LAB URINE ORDERABLES Final Result Performing Organization Address [facility] Phone Number [facility] [address] [place], [place] [id number] * Hemoglobin A1c (02/05/2024 2:12 PM CABLEMAN) [facility] Hgb A1C 4.9 4.0 - 5.6 % Estimated Average Glucose 94 mg/dL [facility] Comment: The ADA recommends reporting an estimated Average Glucose (eAG) with all Hemoglobin A1c results using the equation derived from a study of 507 normal and diabetic adults. Minority populations were underrepresented and children were not included. (Diabetes Care 31:6032-6938, 2008). The eAG is not equivalent to a fasting glucose. Blood 02/05/2024 2:12 PM CABLEMAN 02/05/2024 9:22 PM CABLEMAN Jordy Parra MD LAB BLOOD ORDERABLES Final Result Performing Organization Address [facility] Co de Phone Number [facility] [address] [facility] [place], [place] [id number] * (ABNORMAL) Lipid panel (02/05/2024 2:12 PM CABLEMAN) [facility] Cholesterol 74 30 - 199 mg/dL Comment: [...] ratio 2 [facility] Blood 02/05/2024 2:12 PM CABLEMAN 02/05/2024 9:22 PM CABLEMAN Jordy Parra MD LAB BLOOD ORDERABLES Final Result [facility] [address] Department [place] [address] * DIABETES EYE EXAM (09/22/2023 7:38 AM CDT) Historical Provider HEALTH MAINTENANCE Final Result * PSA screen (05/07/2023 11:53 AM CABLEMAN) PSA-Total 0.22 ng/mL [facility] [place] Comment: Interpretive [...] revised 21. Blood 05/07/2023 11:5 3 AM CABLEMAN 05/07/2023 6:00 PM CABLEMAN us Jordy Parra MD LAB BLOOD ORDERABLES Final Result Performing Organization Address City/[place] [address] [address] Department [place] [address] * (ABNORMAL) Colonoscopy (01/23/2020) Anatomical Region Laterality Modality Other us Jose Cruz Winn MD ENDOSCOPY PROCEDURES Final Res ult from Last 3 Months or Most Recently Relevant to Health Maintenance Insurance [employer] ANTHEM ACCESS CHOICE Care Teams Pulmonary Specialist Relationship Specialty Start Date End Date Jordy Parra MD [address] [facility] [address] [place] [address] PCP - General Family Medicine 05/07/23 Shama Patel NP [address] [place], [place] [id number] Family Medicine 02/22/17 [place] [address] [place] [address] Consulting Physician Endocrinology 05/07/23 Jacque Franks OD [address] [place] [address] Optometry 05/07/23
--- OUTSIDE RECORDS SUMMARY | 2024-06-13 03:19 | XMS_ITS | Encounter Summary ---
Author Organization [facility] Healthcare Address [address] [place] [address] Care Team Providers Care Nurse'S Assistant Name Role Phone Shama Patel NP Unavailable Shama Patel NP Primary Care Provider Kvng Wang MD Primary Care Provider [phone] Jordy Parra MD Primary Care Provider [phone] Claribel Valentin MD Unavailable [phone] Jacque Franks OD Unavailable [phone] Encounter Details Date Type Department Care Team (Late st Contact Info) Description 09/22/2019 E-Visit [facility] Health[facility]/ Physicians [address] [place] [address] Cintia Strickland, WES [address] [place] [address] RE: E-Visit Submission: COVID-19 Evaluation Social History [...] on file Legal Sex Male 12:47 AM GAMING COMMISSIONER Gender Identity Male 09/22/2019 8:44 AM CDT [...] COVID: Suspected 02/14/2023 02/14/2023 02/14/2023 2:53 PM GAMING COMMISSIONER documented as of this encounter Care Teams Nurse'S Assistant Relationship Specialty Start Date End Date Shama Patel, WES [address] [facility] [address], [place] [address] PCP - General Family Medicine 07/02/17 07/19/22 Kvng Wang MD [address] [facility] [address], [place] [address] PCP - General Family Medicine 08/17/22 05/06/23 Jordy Parra MD [address] [facility] [address] [place] [address] PCP - General Family Medicine 05/07/23 Shama Patel NP [address] [facility] [address], [place] [address] Family Medicine 02/22/17 [place] [address] [facility] [address] [place] [address] Consulting Physician Endocrinology 05/07/23 Jacque Franks OD [address] [place] [address] Optometry 05/07/23 documented as of this encounter
--- OUTSIDE RECORDS SUMMARY | 2024-06-13 03:19 | XMS_ITS | Clinical Summary ---
Author Organization [facility] Address [address] [place] [address] Care Team Providers Care Sql Data Architect Name Role Phone Maximino Weeks Primary Care Provider [phone] Source Comments [facility],non-owned Affiliates and Associated Physician Practices is amultiple site organization consisting of ambulatory clinics and hospital sitesin [place], [place], [place] and [place]. This disclosure is being madepursuant to the Care Everywhere program and may not contain all information available regarding this patient. Last updated 17.[facility] Allergies No known active allergies Medications * Be aware that medications may not be up to date on this document. Alwaysverify current medications with the patient. Medication Sig Dispensed Refills Start Date End Date Status lisinopril (PRINIVIL; ZESTRIL) 20 MG tablet Take 20 mg by mouth once daily [facility] (Christy) Active METFORMIN HCL PO Active [...] Comments Blood Pressure 127/82 04/19/2016 10:15 AM MINIATURE SET BUILDER Pulse 77 04/19/2016 10:20 AM MINIATURE SET BUILDER Temperature 36.8 C (98.3 F) 04/19/2016 8:20 AM MINIATURE SET BUILDER Respiratory Rate 18 04/19/2016 9:40 AM MINIATURE SET BUILDER Oxygen Saturation 99% 04/19/2016 10: 20 AM MINIATURE SET BUILDER Inhaled Oxygen Concentration - - Weight 132.1 kg (291 lb 3.2 oz) 04/19/2016 6:47 AM MINIATURE SET BUILDER Height 175.3 cm (5' 9 ) 04/19/2016 6:47 AM MINIATURE SET BUILDER Body Mass Index 43 04/19/2016 6:47 AM MINIATURE SET BUILDER Plan of Treatment Health Maintenance Due Date [...] age to complete this topic Care Teams Sql Data Architect Relationship Specialty Start Date End Date Maximino Weeks DO [address] [facility] [address] [place] [id number] PCP - General Internal Medicine 01/19/15
--- OUTSIDE RECORDS SUMMARY | 2024-06-13 03:19 | XMS_ITS | Clinical Summary ---
Author Organization [facility] Address [address] [address] Phone Care Team Providers Care Client Technologies Analyst Name Role Phone Shama Patel NP Unavailable [phone] Jordy Parra MD Primary Care Provider Claribel Valentin MD Unavailable [phone] TinyJacque de luna OD Unavailable [phone] Allergies Active Allergy Reactions Criticality Noted [...] 05/07/2023 Assessment & Plan (05/07/2023 11:39 AM AUDIO/VISUAL OPERATOR): A(n) initial visit to establish care [...] 04/26/2022 Assessment & Plan (02/29/2024 11:46 AM AUDIO/VISUAL OPERATOR): Patient on statin therapy Tolerating well Assessment & Plan (08/02/2023 11:07 AM CDT): Patient on statin therapy Tolerating well Assessment & Plan (01/03/2023 10:35 AM CDT): Patient on statin therapy Tolerating well Assessment & Plan (08/21/2022 7:40 PM CDT): Patient on statin therapy Tolerating well Assessment & Plan (04/26/2022 12:59 PM AUDIO/VISUAL OPERATOR): Patient on statin therapy Tolerating well Uncontrolled type 2 diabetes mellitus with hyper glycemia 01/03/2022 Assessment & Plan (04/09/2022 7:57 PM AUDIO/VISUAL OPERATOR): Labs today. Continue current Toujeo, Humalog, [...] yr. Assessment & Plan (03/17/2019 10:15 PM AUDIO/VISUAL OPERATOR): Needs to schedule colonoscopy. Counseled. Assessment & Plan (11/03/2018 9:35 PM CDT): Colonoscopy and GI consult ordered. Type 2 diabetes mellitus with nephropathy 2018 Assessment & Plan (01/03/2022 5:07 PM CDT): Labs as ordered. Continue lisinopril 20. Assessment & Plan (05/15/2021 6:28 PM AUDIO/VISUAL OPERATOR): Labs today. Continue current lisinopril 20. [...] worsening. Assessment & Plan (05/04/2018 7:09 PM AUDIO/VISUAL OPERATOR): Podiatry referral offered has info. Assessment & Plan (07/02/2017 9:32 AM CDT): Great toes bilaterally. Also noted to have linear pattern across instep of bilateral feet. OTC ketocaonzole powder/lotrimin recommended. Class 2 severe obesity due t o excess calories with serious comorbidity and body mass index (BMI) of 37.0 to 37.9 in adult 02/21/2017 Assessment & Plan (02/29/2024 11:47 AM AUDIO/VISUAL OPERATOR): Chronic, worsening Discussed about healthy lifestyle [...] loss Assessment & Plan (05/07/2023 11:43 AM AUDIO/VISUAL OPERATOR): BMI Follow-up includes: nutrition counseling, exercise counseling, and education provided. Assessment & Plan (01/03/2023 10:36 AM CDT): Chronic, still above goal, slowly improving Counseled on diet and exercise Assessment & Plan (08/21/2022 7:40 PM CDT): Counseled on diet and exercise Assessment & Plan (04/26/2022 12:58 PM AUDIO/VISUAL OPERATOR): Counseled on diet and exercise Assessment & Plan (04/09/2022 7:56 PM AUDIO/VISUAL OPERATOR): Worsening. Body mass index is 42.53 [...] pt. Assessment & Plan (05/10/2021 9:17 AM AUDIO/VISUAL OPERATOR): Body mass index is 42.38 kg/m . Up 2 lb since ROMEO. Off of trulicity due to rash. He has been limiting carbs, but not counting. Counseled. Assessment & Plan (03/07/2021 5:35 PM AUDIO/VISUAL OPERATOR): Body mass index is 42.15 kg/m . reports at home he is down 176. Still struggling to determine what he can or cannot be. Has not utilized [employer] website to assist with meal planning. Counseled. Assessment & Plan (02/22/2021 6:36 AM AUDIO/VISUAL OPERATOR): Wt loss con't 2 lb. Struggling to determine dietary intake appropriate for diabetes. Working with buffing wheel former automatic. Again given carb intake recommendations for snack/meal/proteins. Assessment & Plan (02/14/2021 7:13 PM AUDIO/VISUAL OPERATOR): BMI Follow-up includes: nutrition counseling. Body [...] risk/benefit. Assessment & Plan (03/17/2019 10:11 PM AUDIO/VISUAL OPERATOR): Worsening. Recommend healthy varied diet with minimal processed foods, increased amounts of fruits and vegetables and low fat and cholesterol levels-no fried, high fat or high sugar foods. Avoidance of taiwanese fried and other fried foods to start. Assessment & Plan (10/28/2018 3:10 PM CDT): Improving. Not eating concentrated sweets. Continue. Assessment & Plan (05/04/2018 7:11 PM AUDIO/VISUAL OPERATOR): Obesity is worsening. BMI Follow-up includes: nutrition counseling, exercise counseling, education provided and referral to buffing wheel former automatic. Assessment & Plan (10/31/2017 6:08 PM CDT): Obesity is unchanged. Reports some stress. Is trying to adjust diet. Exercise recommended outside of work. Assessment & Plan (07/02/2017 9:30 AM CDT): Obesity is improving with lifestyle modifications. Lost 11 lb since ROMEO. Encouraged to exercise outside of work. Assessment & Plan (03/28/2017 9:38 AM AUDIO/VISUAL OPERATOR): RACHEL saxena, my fitness pal reviewed. Instructed to increase physical activity-portions control. Assessment & Plan (02/21/2017 5:42 PM AUDIO/VISUAL OPERATOR): Obesity is newly identified. walking at work.Portion control discussed. [address] diet. Informal exercise measures discussed, e.g. taking stairs instead of elevator. Handouts provided. My fitness pal and calorie counter ap discussed-opened in ov. Type 2 diabetes mellitus wit h circulatory disorder, with long-term current use of insulin 03/19/2015 Assessment & Plan (02/29/2024 11:47 AM AUDIO/VISUAL OPERATOR): Chronic, overall well controlled A1c 4.9% [...] weekly Assessment & Plan (04/26/2022 12:59 PM AUDIO/VISUAL OPERATOR): Chronic, , uncontrolled, worsening A1c 8.3% [...] months Assessment & Plan (04/09/2022 7:59 PM AUDIO/VISUAL OPERATOR): Continue Toujeo 20 units q.a.m. 10 [...] progress. Assessment & Plan (05/15/2021 6:29 PM AUDIO/VISUAL OPERATOR): Labs today. Continue current toujeo 6 un, sliding scale novolin, and metformin will be changed to er due to continued diarrhea. Stopped GLP1 due to rash at site- true hive. Will discuss with pharmacist to determine cross-believe all in class will cause similar. Assessment & Plan (03/07/2021 5:37 PM AUDIO/VISUAL OPERATOR): Decreased toujeo from 10 to 5 [...] antibiotic. Assessment & Plan (02/22/2021 6:35 AM AUDIO/VISUAL OPERATOR): Improving. Not to goal. Blood sugar into the 260s fbg and lowest 160. Start toujeo 10 un nightly. Con't SSI. Con't metformin and trulicity. Assessment & Plan (02/14/2021 5:10 PM AUDIO/VISUAL OPERATOR): Newly worsening. Counseled carb should be [...] unknown. Assessment & Plan (03/17/2019 10:13 PM AUDIO/VISUAL OPERATOR): Labs today. Continue current. Counseled on need to see eye doctor annually. Declined flu vaccine. Log would be helpful to help manage. Wt Loss recommended. Assessment & Plan (10/28/2018 3:09 PM CDT): A1C 5.1% today. Blood sugar in OV 128. Continue metformin as directed. Continue to monitor. Counseled to acquire eye exam. Assessment & Plan (05/04/2018 7:09 PM AUDIO/VISUAL OPERATOR): Labs today. Continue current. Reminded to [...] mo. Assessment & Plan (03/28/2017 9:39 AM AUDIO/VISUAL OPERATOR): Need log and A1C. Reordered. Tolerating Metformin well. Diabetes will be reassessed in 3 months. Assessment & Plan (02/21/2017 5:44 PM AUDIO/VISUAL OPERATOR): Diabetes is newly identified. Reminded to bring in blood sugar diary at next visit. Dietary recommendations for ADA diet. Regular aerobic exercise. Medication changes per orders. buffing wheel former automatic referral. Diabetes will be reassessed in 1 month. Discussed that may need to have injectable for management to assist with weight loss. Pt reports that he wants to get off of medication for good. Discussed will need to monitor cals. Hypertension associated with diabetes 03/19/2011 Assessment & Plan (02/29/2024 11:46 AM AUDIO/VISUAL OPERATOR): Chronic, well controlled Continue lisinopril Assessment & Plan (08/02/2023 11:06 AM CDT): Chronic, well controlled Continue lisinopril Assessment & Plan (01/03/2023 10:35 AM CDT): Chronic, well controlled Continue lisinopril Assessment & Plan (08/21/2022 7:44 PM CDT): Chronic, well controlled Continue lisinopril Assessment & Plan (04/26/2022 12:58 PM AUDIO/VISUAL OPERATOR): Chronic, well controlled Continue lisinopril Assessment & Plan (04/09/2022 7:56 PM AUDIO/VISUAL OPERATOR): Controlled. Continue current regimen lisinopril 20. Dietary monitoring of sodium intake discussed. Assessment & Plan (01/03/2022 5:05 PM CDT): Controlled. Continue current regimen lisinopril 20. Labs today. Next Assessment & Plan (07/06/2021 2:17 PM CDT): Controlled. Continue current regimen. Assessment & Plan (05/10/2021 9:18 AM AUDIO/VISUAL OPERATOR): Controlled. Continue current regimen of lisinopril 20 mg. Assessment & Plan (03/07/2021 5:35 PM AUDIO/VISUAL OPERATOR): Controlled. Continue current regimen Lisinopril 20 daily. Assessment & Plan (02/22/2021 6:34 AM AUDIO/VISUAL OPERATOR): 110/74 repeat. Did not eat today. He has been drinking fluids-but he has been drinking fluids. Continue current regimen. Assessment & Plan (02/14/2021 5:11 PM AUDIO/VISUAL OPERATOR): Controlled. Continue current regimen. Assessment & [...] loss. Assessment & Plan (03/17/2019 10:11 PM AUDIO/VISUAL OPERATOR): Controlled. Continue current regimen. Con't dietary monitoring. Recommend regular aerobic exercise for at least 150 minutes weekly-preferably 5 x weekly 30 min. Assessment & Plan (10/28/2018 3:09 PM CDT): Controlled. Continue current regimen. Continue to work on weight loss. Assessment & Plan (05/04/2018 7:11 PM AUDIO/VISUAL OPERATOR): Hypertension is improving with treatment. Dietary [...] mo.. Assessment & Plan (03/28/2017 9:38 AM AUDIO/VISUAL OPERATOR): Controlled on current lisinopril 20 daily. Labs reordered-he reports he got stuck-no records. Sodium restriction. Exercise. 3 mo f/u. Assessment & Plan (02/21/2017 3:12 PM AUDIO/VISUAL OPERATOR): Hypertension is newly identified. Dietary sodium [...] loss. Assessment & Plan (03/17/2019 10:23 PM AUDIO/VISUAL OPERATOR): Counseled on importance of HEP. Wanting imaging. Assessment & Plan (11/03/2018 9:35 PM CDT): New. Most likely 2/2 to strain. Rest. NSAIDs. Exercises. Disease of tonsils 04/18/2016 1 Encounters Date Type Department Care Team Description 05/15/2024 Telephone [facility] [id number] [place] [address] [address] [address] Arnel Carter II, MD 04/11/2024 Telephone [facility] [address] [place] [address] [address] [address] Yareli Ojeda [place] 04/03/2024 10:00 AM AUDIO/VISUAL OPERATOR Office Visit [facility] at [address] [address] Michele Gong NP Neck pain, bilateral (Primary Dx); Mass of right lower leg 04/03/2024 Patient Self-Triage [facility] [address] [place] [address] Mychart, Generic Provider from Last 3 Months [...] on file Legal Sex Male 12:47 AM AUDIO/VISUAL OPERATOR Gender Identity Male 09/22/2019 8:44 AM CDT Sexual Orientation Straight 09/22/2019 8: 44 AM CDT Occupation Industry Job Start Date Job End Date [employer] Not on file Not on file Not on file Obstetrics History Last Filed Vital Signs Vital Sign Reading Time Taken Comments Blood Pressure 119/80 04/03/2024 10:00 AM AUDIO/VISUAL OPERATOR Pulse 92 04/03/2024 10:00 AM AUDIO/VISUAL OPERATOR Temperature 37 C (98.6 F) 04/03/2024 10:00 AM AUDIO/VISUAL OPERATOR Respiratory Rate 20 04/03/2024 10:00 AM AUDIO/VISUAL OPERATOR Oxygen Saturation 98% 04/03/2024 10:00 AM AUDIO/VISUAL OPERATOR Inhaled Oxygen Concentration - - Weight 118.8 kg (262 lb) 04/03/2024 10:00 AM AUDIO/VISUAL OPERATOR Height 177.8 cm (5' 10 ) 04/03/2024 10:00 AM AUDIO/VISUAL OPERATOR Body Mass Index 37.59 04/03/2024 10:00 AM AUDIO/VISUAL OPERATOR Plan of Treatment Health Maintenance Due [...] Diagnosis Comments EGFR Routine 02/05/2024 2:12 PM AUDIO/VISUAL OPERATOR Hyperlipidemia associated with type 2 diabetes mellitus (HCC) HEMOGLOBIN A1C Routine 02/05/2024 2:12 PM AUDIO/VISUAL OPERATOR Hyperlipidemia associated with type 2 diabetes mellitus (HCC) Hypertension associated with diabetes (HCC) LIPID PANEL Routine 02/05/2024 2:12 PM AUDIO/VISUAL OPERATOR Hypertension associated with diabetes (HCC) ALBUMIN CREATININE RATIO, URINE Routine 02/05/2024 2:12 PM AUDIO/VISUAL OPERATOR Hyperlipidemia associated with type 2 diabetes mellitus (HCC) Hypertension associated with diabetes (HCC) HM DIABETES EYE EXAM Routine 09/22/2023 7:38 AM CDT PSA SCREEN Routine 05/07/2023 11:53 AM AUDIO/VISUAL OPERATOR Screening for prostate cancer COLONOSCOPY Routine 01/23/2020 from Last 3 Months or Most Recently Relevant to Health Maintenance Results * eGFR (02/05/2024 2:12 PM AUDIO/VISUAL OPERATOR) eGFR 77 >=60 mL/min/1. 73 m2 [...] last reviewed 2021. Blood 02/05/2024 2:12 PM AUDIO/VISUAL OPERATOR 02/05/2024 9:39 PM AUDIO/VISUAL OPERATOR Jordy Parra MD LAB BLOOD ORDERABLES Final Result Performing Organization Address [facility] Phone Number LUZSHERR[place] [address] [place] [address] * (ABNORMAL) Albumin Creatinine Ratio, Urine (02/05/2024 2:12 PM AUDIO/VISUAL OPERATOR) Pathologist [facility] Albumin Ur 36.0 mg/L Comment: Interpretive Data No reference range established. Current interpretive data was last revised 2018. Creatinine Ur 49.0 mg/dL [facility] Comment: Interpretive Data No reference range established. Current interpretive data was last revised 2018. Albumin Creatinine Ratio, Ur 73(H) 1 - 29 mg/g [facility] Urine 02/05/2024 2:12 PM AUDIO/VISUAL OPERATOR 02/05/2024 9:22 PM AUDIO/VISUAL OPERATOR Jordy Parra MD LAB URINE ORDERABLES Final Result Performing Organization Address [facility] Co de Phone Number SENDY [address] [employer] [place], [place] [phone] * Hemoglobin A1c (02/05/2024 2:12 PM AUDIO/VISUAL OPERATOR) Pathologist [facility] Hgb A1C 4.9 4.0 - 5.6 % Estimated Average Glucose 94 mg/dL [facility] Comment: The ADA recommends reporting an estimated Average Glucose (eAG) with all Hemoglobin A1c results using the equation derived from a study of 507 normal and diabetic adults. Minority populations were underrepresented and children were not included. (Diabetes Care 31:8201-5089, 2008). The eAG is not equivalent to a fasting glucose. Blood 02/05/2024 2:12 PM AUDIO/VISUAL OPERATOR 02/05/2024 9:22 PM AUDIO/VISUAL OPERATOR us Jordy Parra MD LAB BLOOD ORDERABLES Final Result Performing Organization Address City/State/ZIP [place] Phone Number [facility] [place] [address] Department [place] [address] * (ABNORMAL) Lipid panel (02/05/2024 2:12 PM AUDIO/VISUAL OPERATOR) Cholesterol 74 30 - 199 mg/dL [...] revised on 2017. Chol/HDL ratio 2 [facility] [place] Blood 02/05/2024 2:12 PM AUDIO/VISUAL OPERATOR 02/05/2024 9:22 PM AUDIO/VISUAL OPERATOR Jordy Parra MD LAB BLOOD ORDERABLES Final Result Performing Organization Address City/[facility] Co de Phone Number S[facility] [place] [address] [employer] [place], [place] [phone] * HM DIABETES EYE EXAM (09/22/2023 7:38 AM CDT) Jose R Sanchez MD HEALTH MAINTENANCE Final Result * PSA screen (05/07/2023 11:53 AM AUDIO/VISUAL OPERATOR) PSA-Total 0.22 ng/mL [facility] Comment: Interpretive [...] revised 21. Blood 05/07/2023 11:5 3 AM AUDIO/VISUAL OPERATOR 05/07/2023 6:00 PM AUDIO/VISUAL OPERATOR Jordy Parra MD LAB BLOOD ORDERABLES Final Result Performing Organization Address [facility] Co de Phone Number SENDY [place] [address] [place] [address] * (ABNORMAL) Colonoscopy (01/23/2020) Anatomical Region Laterality Modality Other Jose Cruz Winn MD ENDOSCOPY PROCEDURES Final Res ult from Last 3 Months or Most Recently Relevant to Health Maintenance Insurance [employer] ACCESS CHOICE ComAbility ACCESS CHOICE ComAbility ACCESS CHOICE Care Teams Client Technologies Analyst Relationship Specialty Start Date End Date Jordy Parra MD [address] [place] [address] PCP - General Family Medicine 05/07/23 Shama Patel, WES [address] [facility] [address], [place] [address] Family Medicine 02/22/17 [place] [address] [facility] [address] [place] [address] Consulting Physician Endocrinology 05/07/23 Jacque Franks OD [address] [place] [address] Optometry 05/07/23
--- NOTE | 2024-06-13 03:34 | ED.ABDPAIN ---
HPI - Abdominal Pain General Chief Complaint: Abdominal Pain Stated Complaint: flank pain Time Seen by Provider: 06/13/24 02:40 Source: patient Mode of arrival: ambulatory Limitations: no limitations History of Present Illness HPI narrative: Patient presents with low abdominal pain radiating to his right flank. He states he has a history of kidney stones but this feels different given the direction the pain seems to be traveling. He has also been having a lot of gas and burping. He has not noticed any relationship of his symptoms food. Symptoms have been going on intermittently for the past week. He denies any dysuria, urgency, frequency, or hematuria. Initially denies any penile discharge though then states he had a nocturnal emission overnight (without change in ejaculate). No fevers but he has felt a little chilled. No prior abdominal surgeries. His stools have been somewhat loose but he attributes this to being on Monjaro which he has been on for approximately 1 year without a dose change recently (last dose change was 6-7 months ago). He is also on Farxiga and lisinopril. No nausea or vomiting. Feels slightly lightheaded. Urinating slightly relieves the pressure (but only by 1%). He still has an appetite. Last oral intake 9:30pm. Non bloody stools. He has a primary care physician (Aida) and credit risk analytics manager (Dr Ramirez) for his diabetes. Related Data Home Medications ?Medication ?Instructions ?Recorded ?Confirmed ?Last Taken ?Type atorvastatin 10 mg tablet 20 mg PO DAILY 02/12/21 02/12/21 Unknown History lisinopril 10 mg tablet 20 mg PO DAILY 02/12/21 02/12/21 Unknown History metformin 1,000 mg tablet 1,000 mg PO BID 02/12/21 02/12/21 Unknown History Allergies Allergy/AdvReac Type Severity Reaction Status Date / Time No Known Allergies Allergy Verified 06/13/24 02:34 [facility] Past Medical History Medical History Diabetes Surgical History Surgical History H/O lumbosacral spine surgery Family History Family History Sibling Carcinoma of colon Social History Social History Gender identity (if verbalized by the patient): Male Exam Narrative: GENERAL: Well-appearing, well-nourished, and in no acute distress. HEAD: Normocephalic, atraumatic. EYES: Non injected, non icteric ENT: Nares clear, no rhinorrhea or epistaxis. NECK: Supple. CHEST: Speaking in full sentences. No respiratory distress. HEART: Regular rate and rhythm. . ABDOMEN: Soft, nondistended. No rigidity or guarding. Not peritoneal. EXTREMITIES: Normal range of motion. No lower extremity edema. SKIN: Warm, dry, no rash. NEURO: No focal deficits. Alert and oriented x3. PSYCH: Normal mood and affect. Course Vital Signs Vital signs: Vital Signs Temperature 98.1 F 06/13/24 02:43 Pulse Rate 74 06/13/24 02:43 Respiratory Rate 12 06/13/24 02:43 Blood Pressure 138/82 06/13/24 02:43 Pulse Oximetry 100 06/13/24 02:43 Oxygen Delivery Room Air 06/13/24 02:43 Temperature 98.1 F 06/13/24 02:43 Pulse Rate 73 06/13/24 09:29 Respiratory Rate 16 06/13/24 09:29 Blood Pressure 130/93 H 06/13/24 09:29 Pulse Oximetry 100 06/13/24 09:29 Oxygen Delivery Room Air 06/13/24 02:43 MDM - Abdominal Pain MDM Narrative Medical decision making narrative: Patient presents with intermittent low abdominal pain of 1 week's duration. He has a history of diabetes mellitus and is on Monjaro and Farxiga. In the emergency department they are afebrile with vital signs within normal limits. CBC without leukocytosis or marked anemia (Hct slightly abnormal but with normal hgb). 3+ glucosuria on UA. Elevated bili but with with other liver function tests normal. Ddx indirect hyperbilirubinemia Over production of bilirubin (hemolytic anemia), reduced uptake (cirrhosis or congestive hepatopathy), impaired conjugation, biliary obstruction, hereditary disease (Gilbert syndrome, Adair-Byron syndrome, Crigler-Crissy syndrome), medication side effect (allopurinol, anabolic steroids, antibiotics, antimalarials, etc.) Lipase normal. Based on CT imaging, right upper quadrant ultrasound is ordered. Patient is reassessed and states he has continued to have pain. Dilaudid ordered. Ultrasound suggests chronic cholecystitis and again this is not the location of patient's pain however. Patient is reassessed; each time he is reassessed he is sleeping, resting comfortably but when awoken he grimaces and states he continues to have pain. He states that the pain is still present, 80% of what it had been (only 20% improvement). Review of the EMR is performed which does show patient has presented multiple times for similar pain complaints in this low pelvic/suprapubic area. Urinalysis is unremarkable today other than as indicated above. He does state that he had a colonoscopy performed approximately 4 - 5 years ago and it was normal and he was told he was good for 10 years however his primary care physician is encouraging him to get another 1 in the next year or so especially because his sister recently due to stage IV colon cancer that was not detected on a colonoscopy she had performed due to its proximal/right sided location in the colon. Denies any issues initiating a stream, urinary hesitancy, etc. to suggest urinary retention. No urinary symptoms. Will trial ketorolac and Bentyl ; patient desiring to eat. NPO challenge. In sum, This patient presents with abdominal/suprapubic pain of unclear etiology. A CT and US scan was performed to evaluate for potential causes of the pain, however, neither the clinical exam nor the imaging has identified an emergent etiology for the abdominal pain. Specifically, given the benign exam, the laboratory studies, I have a very low suspicion for appendicitis, ischemic bowel, bowel perforation, or any other life threatening disease. I have discussed with the patient the level of uncertainty with undifferentiated abdominal pain and clearly explained the need to follow-up as noted on the discharge instructions, or return to the Emergency Department immediately if the pain worsens, develops fever, persistent and uncontrolled vomiting, or for any new symptoms or concerns. Provided prescriptions for acetaminophen, ibuprofen, Bentyl . Differential Diagnosis Differential diagnosis: Likely abdominal pain, acute appendicitis, calculus of kidney, constipation, diverticulitis, pancreatitis and other (cystitis; pyelonephritis) Lab Data Attestation: I reviewed the patient's lab results. 06/13/24 02:51 06/13/24 02:51 Labs: Lab Results 06/13/24 Range/Units 02:51 WBC 6.6 (4.5-10.0) K/mm3 RBC 5.06 (4.6-6.20) M/mm3 Hgb 14.2 (14.0-18.0) g/dL Hct 41.4 L (42.0-52.0) % MCV 81.8 (80-100) fl MCH 28.1 (26-34) pg MCHC 34.3 (32-36) g/dl RDW 13.0 (11.5-14.5) % Plt Count 202 (150-375) k/mm3 MPV 9.6 (7.4-10.4) fl Immature Gran % (Auto) 0.5 (0-0.5) % Neut % (Auto) 43.6 L (45.5-73.1) % Lymph % (Auto) 39.6 (18.3-44.2) % Knox % (Auto) 10.1 H (2.6-8.5) % Eos % (Auto) 5.0 H (0-4.4) % Baso % (Auto) 1.2 (0.2-1.2) % Lymph # (Auto) 2.62 (0.9-3.2) K/mm3 Knox # (Auto) 0.7 H (0.1-0.6) K/mm3 Eos # (Auto) 0.3 (0-0.3) K/mm3 Baso # (Auto) 0.1 (0.0-0.1) K/mm3 Abs Immat Gran (auto) 0.03 (0.00-0.031) K/mm3 Absolute Neuts (auto) 2.9 (1.3-6.7) K/mm3 Absolute Nucleated RBC 0.000 (0.0-0.012) K/mm3 Nucleated RBC % 0.0 (0.0-0.2) % Sodium 139 (137-145) mmol/L Potassium 4.1 (3.4-5.0) mmol/L Chloride 104 (98-107) mmol/L Carbon Dioxide 23 (22-30) mmol/L Anion Gap 12 (4-12) mmol/L BUN 15 D (9-20) mg/dL Creatinine 1.02 (0.7-1.3) mg/dL Estim Creat Clear Calc 99 ml/min Estimated GFR > 60 (59 - ) Glucose 113 H (65-110) mg/dL Calcium 9.8 (8.4-10.2) mg/dL Total Bilirubin 1.9 H (0.2-1.3) mg/dL Direct Bilirubin 0.0 (0-0.3) mg/dL Indirect Bilirubin 1.6 H (0-1.1) mg/dL AST 23 (17-59) U/L ALT 32 (6-50) U/L Alkaline Phosphatase 60 (38-126) U/L Total Protein 7.0 (6.3-8.2) g/dL Albumin 4.5 (3.5-5.1) g/dL Lipase 283 (23-300) U/L Urine Color Yellow (Yellow) Urine Appearance Clear (Clear) Urine pH 7.5 (5.0-9.0) Ur Specific [place] 1.016 (1.001-1.035) Urine Protein Negative (Negative) mg/dL Urine Glucose (UA) 3+ H (Negative) mg/dL Urine Ketones Negative (Negative) mg/dL Ur Blood (Man) Negative (Negative) Urine Nitrate Negative (Negative) Urine Bilirubin Negative (Negative) Urine Urobilinogen 4.0 H (<2.0) mg/dL Leukocyte Esterase Rfl Negative (Negative) GALILEA/UL Imaging Data Radiologist's impression: ITS Impressions Abdomen/Pelvis CT 06/13/24 05:30 IMPRESSION: 1. Porcelain gallbladder. Gallbladder distention again seen, which may be acute or chronic cholecystitis. Abdomen Ultrasound 06/13/24 07:54 IMPRESSION: 1. Distended gallbladder with gallstones and gallbladder wall thickening, which are chronic findings and may be chronic cholecystitis. No sonographic Brown's sign to suggest acute cholecystitis. Consider hepatobiliary scintigraphy. Discharge Plan Discharge Clinical Impression: Suprapubic abdominal pain, Glucosuria, Indirect hyperbilirubinemia, Cholecystitis, chronic Patient Disposition: Home, Self-Care Condition: Stable Instructions: Antibiotic Form, Cholecystitis (ED), Low Fat Diet (ED), Abdominal Pain (ED) Additional Instructions: As we discussed, no clear etiology for your symptoms. Your CT scan and ultrasound showed possible chronic cholecystitis but this is not wear your pain is or has been located. You can follow-up with the general surgeon listed below in the outpatient setting to follow-up on this but also trial diet modification. Although you had a reportedly normal colonoscopy, given your family history and at your primary care physician's recommendation, you may benefit from a repeat colonoscopy sooner than the original 10 years that had been recommended after your first one. You can either follow-up with the dividend deposit voucher clerk you saw in [place], another one referred to by your PCP, or the one listed below. Acetaminophen/Tylenol (maximum 4000 mg per day) is safe to take with NSAIDs (ibuprofen/Motrin) for pain relief. You can also trial Bentyl which works on the smooth muscle of your GI tract. Follow-up with primary care physician. Return to the emergency department if the pain worsens, you develop a fever greater than 100.4? F, you have persistent uncontrolled vomiting, or for any new symptoms or concerns. Patient Language: Nepali Prescriptions: New ibuprofen 600 mg tablet 600 mg PO TID PRN (Reason: pain) Qty: 30 0RF acetaminophen 500 mg capsule 1,000 mg PO Q6H PRN (Reason: pain) Qty: 30 0RF dicyclomine 10 mg capsule 20 mg PO BID PRN (Reason: abdominal pain) Qty: 20 0RF No Action prednisone 50 mg tablet 50 mg PO DAILY Qty: 4 0RF atorvastatin 10 mg Tablet 20 mg PO DAILY metformin 1,000 mg Tablet 1,000 mg PO BID lisinopril 10 mg Tablet 20 mg PO DAILY ondansetron 4 mg tablet,disintegrating 4 mg PO Q8H PRN (Reason: nausea and vomiting) Qty: 14 0RF ondansetron 4 mg tablet,disintegrating 4 mg PO Q8H PRN (Reason: nausea and vomiting) Qty: 14 0RF dicyclomine 20 mg tablet 20 mg PO BID Qty: 30 0RF Follow-up/Referrals: Aida,Jordy Cochran MD [Primary Care Provider] - Pierce Young MD [Physician] - (General surgery) Ramon Velazquez MD [Physician] - (Gastroenterology) Stand Alone Forms: Work/School Release IP Time of Disposition: 08:22
[2024-06-13 03:48] LABS: Lipase 283 U/L (23-300)
[2024-06-13] MEDS: MORPHINE SULFATE (*CRX) 4 MG/ML INJ IV PUSH (03:48)
[2024-06-13 03:51] LABS: Bilirubin Indirect 1.6 mg/dL (0-1.1)
[2024-06-13 05:11] VITALS: BP 126/79; PULSE 76; RESP 18; O2SAT 97
[2024-06-13 06:37] VITALS: BP 144/66; PULSE 92; RESP 17; O2SAT 98
[2024-06-13] MEDS: HYDROmorphone HCL INJ (*CRX) 1 MG/ML SYR 0.5 MG IV PUSH (06:37)
[2024-06-13 07:30] VITALS: BP 126/75; PULSE 80; RESP 16; O2SAT 97
[2024-06-13] MEDS: DICYCLOMINE HCL 10 MG CAPSULE 20 MG PO (08:10)
[2024-06-13] MEDS: KETOROLAC 15 MG/ML VIAL (*BKC) IV PUSH ×2 (08:11→08:28)
[2024-06-13 09:29] VITALS: BP 130/93; PULSE 73; RESP 16; O2SAT 100
== END 2024-06-13 09:28 | disposition home or self-care (01) ==
PROVIDERS: Emergency Provider Student in an Organized Health Care Education/Training Program; PCP Family Medicine
DX: K81.1 Chronic cholecystitis (principal); E80.6 Other disorders of bilirubin metabolism; R81 Glycosuria; E11.9 Type 2 diabetes mellitus without complications
CPT/HCPCS: 36415; 74177; 76705; 80053; 81001; 82248; 83690; 85025; 96374; 96375; 99284; A9270; J1171; J1885; J2270; Q9967

== ENCOUNTER 2024-12-15 07:31 | Emergency (ER) | payer BC, SELFPAY ==
--- OUTSIDE RECORDS SUMMARY | 2020-02-23 10:53 | XMS_ITS | Continuity of Care Document ---
Author Organization [facility] Address [address] [place] [address] Phone Care Team Providers Care Pick Up Driver Name Role Phone Desi Maximino Unavailable Unavailable Allergies, Adverse Reactions, Alerts Substance Reaction Status Criticality No Known Allergies Active No Inform ation Medications Medication Instructions Dosage Effective Dates (start - stop) Status Comments metformin 1,000 mg tablet take 1 tablet by oral route 2 times every day with morning and evening meals 1000 MG - Active Last fill, needs to make office visit appointment lisinopril 20 mg tablet TAKE 1 TABLET BY ORAL ROUTE EVERY DAY 20 MG - Active Glyxambi 25 mg-5 mg tablet take 1 tablet by oral route every day in the morning 1.00 tablet - Active OneTouch Ultra Test strips use one test strip to test blood sugar at each meal and at bedtime - Active Newly diagnosed with Diabetes. tramadol 50 mg tablet take 1 tablet by oral route every 8 hours as needed for pain - Active called into pharmacy [phone] 06/15/15 NAPROXEN 500MG TABLETS TAKE 1 TABLET BY MOUTH TWICE DAILY WITH FOOD 500 MG - Active METAXALONE 800MG TABLETS TAKE 1 TABLET BY MOUTH THREE TIMES DAILY - Active Procedures Procedure Date TISSUE EXAM BY PATHOLOGIST COLONOSCOPY AND BIOPSY Advance Directives Directive Yes / No Effective Date File Name No Information Encounters Encounter Description Practice Location Reason(s) For Visit Diagnoses Date Provider Providers Copied on Encounter [facility], [address], [place], [place], [address] , tel: [phone] [facility] No Information 0 Desi Stanton. 4800 [facility], [address], [id number] , . tel: [phone] [facility], [address], [place], [place], [address] , tel: [phone] [facility] No Information 0 Pa Billingsley. [address] [place], [place], [address] , . tel: [phone] Referring Provider: Maximino Weeks, [address], [address] . tel:[phone] [facility], [address] [place] [address], [id number] , tel: [phone] [facility] No Information 0 Pa Billingsley. [address] [place], [place], [address] , . tel: [phone] Referring Provider: Jessica Schaefer, 1125 [facility] [address], [address]. tel:[phone] [facility], [address], [place], [address] , tel: [phone] [facility] No Information 7 Jeff Branch. [address] [place], [place], [address] , . tel: [phone] [facility] [place], [address], [place], [address] , [place] tel: [phone] [facility] No Information 7 Desi Stanton. 4800 [facility], [address], [id number] , . tel: [phone] [facility], [address], [place], [place], [address] , tel: [phone] [facility] Morbid obesity due to excess caloriesType 2 diabetes mellitus without complicationHTN (hypertension), benignLumbar back pain with radiculopathy affecting right lower extremity 6 Desi Maximino. 4800 [facility], [address], [address] , . tel: [phone] Referring Provider: Maximino Weeks, [address], [address] . tel:[phone] [facility], [address], [place], [place], [address] , tel: [phone] [facility] No Information 6 Desi Maximino. 4800 [facility], [address], [id number] , [place]. tel: [phone] [facility], [address], [place], [place], [address] , tel: [phone] [facility] No Information 6 Jeff Branch. [address], [place], [place], [address] , . tel: [phone] [facility], [address], [place], [address] , [place] tel: [phone] [facility] No Information 6 Lexx Chavez . [address], [place], [place], [address] , . tel: [phone] [facility], [address], [place], [place], [address] , tel: [phone] [facility] Type 2 diabetes mellitus with complication 6 Lexx Chavez . [address], [place], [place], [address] , . tel: [phone] Referring Provider: Maximino Weeks, [address], [address] . tel:[phone] [facility] [place], [address], [place], [place], [address] , tel: [phone] [facility] No Information 6 Desi Maximino. 4800 [facility], [address], [address] , . tel: [phone] [facility], [address], [place], [place], [address] , tel: [phone] [facility] No Information 3 0 5 Desi Maximino. [address], [id number] , . tel: [phone] [facility], [address], [place], [place], [address] , tel: [phone] [facility] Lumbar back pain with radiculopathy affecting right lower extremityMorbid obesity due to excess caloriesHypertensi on, benignParesthesiaM ixed hyperlipidemia 5 Desi Maximino. [address], [address] , . tel: [phone] Referring Provider: Maximino Weeks, [address], [address] . tel:[phone] [facility], [address], [place], [place], [address] , tel: [phone] [facility] Sciatica, unspecified laterality 5 Desi Maximino. [address], [address] , . tel: [phone] [facility], [address], [place], [place], [address] , tel: [phone] [facility] Sciatica, right side 0 5 Desi Maximino. [address], [address] , . tel: [phone] Referring Provider: Maximino Weeks, [address], [address] . tel:[phone] [facility], [address], [place], [place], [address] , tel: [phone] [facility] Benign essential hypertensionBack painSciatic leg painScreening for diabetes mellitusMixed hyperlipidemiaColo n cancer screening 5 Lexx Chavez . [address], [place], [place], [address] , . tel: [phone] Referring Provider: Maximino Weeks, [address], [address] . tel:[phone] [facility], [address], [place], [place], [address] , tel: [phone] [facility] No Information 4 Desi Stanton. 4800 [facility], [address], [address] , . tel: [phone] [facility], [address], [place], [place], [address] , tel: [phone] [facility] Benign essential hypertensionRight knee painLipomaMixed hyperlipidemia 4 [facility]. [address], [facility] [place], [address] . tel: [phone] Referring Provider: Maximino Weeks, [address], [address] . tel:[phone] [facility], [address], [place], [place], [address] , tel: [phone] [facility] Benign essential hypertensionHEMATU NATALIIA NOSDisturbance of skin sensation 2 Desi Stanton. 4800 [facility], [address], [address] , . tel: [phone] Referring Provider: Maximino Weeks, [address], [address] . tel:[phone] [facility], [address], [place], [place], [address] , tel: [phone] [facility] Benign hypertensionFamily history of premature coronary heart diseaseAtypical chest painHeartburnPares thesias/numbnessHe maturiaGroin painScreening for diabetes mellitus 2 Desi Stanton. 4800 [facility], [address], [address] , . tel:[phone] Referring Provider: Maximino Weeks, [address], [place], [address] . tel:[phone] Family History Family Member Type Diagnosis Age At Onset *Father Problem (finding) coronary arterioscleros is *Mother Problem (finding) asthma *Mother Problem (finding) Diabetes mellitus Maternal grandfather Problem (finding) Diabetes mellit us *Mother Problem (finding) hypertension Brother Problem (finding) diabetes melli tus in first degree relative Brother Problem (finding) hypertension Sister Problem (finding) diabetes melli tus in first degree relative *Mother Problem (finding) coronary arterioscleros is Close relative Problem (finding) cancer of colon *Father Problem (finding) alcoholism Maternal grandfather Problem (finding) hypertension Immunizations Vaccine Date Status Comments Influenza, high dose seasonal administere d Source: Other Registry Payers Payer name Insurance type Covered libertarian ID Authoriza tion(s) No Information Social History Type Description Quantity Date Captured Comments Alcohol Use Details Unknown Caffeine Use Details Unknown Tobacco Use Status Smoking Status No Information Sex Male Chief Complaint And Reason For Visit No Information Reason For Referral Reason For Referral No Information History Of Present Illness Encounter Date Complaint History Of Prese nt Illness No Information Functional Status Date Functional Assessmen t No Information Instructions Date Instruction Additional Infor mation No Information Assessments Type Assessment Date No Information Patient Care Teams Name Effective Dates (start - stop) Status Members No Information
--- OUTSIDE RECORDS SUMMARY | 2020-02-23 10:53 | XMS_ITS | Continuity of Care Document ---
Author Organization [facility] Address [address] [place] [address] Phone Care Team Providers Care Sweeping Compound Blender Name Role Phone Desi Maximino Unavailable Unavailable [...] for pain - Active called into pharmacy [phone] 06/15/15 NAPROXEN 500MG TABLETS TAKE 1 TABLET [...] Diagnoses Date Provider Providers Copied on Encounter [facility], [address], [place], [place], [address] , tel: [phone] [facility] No Information 0 Desi Stanton. 4800 [facility], [address], [address] , . tel: [phone] [facility], [address], [place], [place], [address] , tel: [phone] [facility] No Information 0 Pa Billingsley. [address] [place], [place], [address] , . tel: [phone] Referring Provider: Maximino Weeks, [address], [address] . tel:[phone] [facility], [address] [place] [address], [address] , tel: [phone] [facility] No Information 0 Pa Billingsley. [address] [place], [place], [address] , . tel: [phone] Referring Provider: Jessica Schaefer, 1125 [facility] [address], [place], [address]. tel:[phone] [facility], [address], [place], [address] , tel: [phone] [facility] No Information 7 Jeff Branch. [address] [place], [place], [address] , . tel: [phone] [facility], [address], [address] , [place] tel: [phone] [facility] No Information 7 Desi Stanton. 4800 [facility], [address], [address] , . tel: [phone] [facility], [address], [place], [place], [address] , tel: [phone] [facility] Morbid obesity due to excess caloriesType 2 diabetes mellitus without complicationHTN (hypertension), benignLumbar back pain with radiculopathy affecting right lower extremity 6 Desi Maximino. 4800 [facility], [address], [address] , . tel: [phone] Referring Provider: Maximino Weeks, [address], [address] . tel:[phone] [facility], [address], [place], [place], [address] , tel: [phone] [facility] No Information 6 Desi Maximino. 4800 [facility], [address], [id number] , [place]. tel: [phone] [facility], [address], [place], [place], [address] , tel: [phone] [facility] No Information 6 Jeff Branch. [address], [place], [place], [address] , . tel: [phone] [facility], [address], [place], [place], [address] , [place] tel: [phone] [facility] No Information 6 Lexx Chavez . [address], [place], [place], [address] , . tel: [phone] [facility], [address], [place], [place], [address] , tel: [phone] [facility] Type 2 diabetes mellitus with complication 6 Lexx Chavez . [address], [place], [place], [address] , . tel: [phone] Referring Provider: Maximino Weeks, [address], [address] . tel:[phone] [facility], [address], [place], [place], [address] , tel: [phone] [facility] No Information 6 Desi Maximino. 4800 [facility], [address], [address] , . tel: [phone] [facility], [address], [place], [place], [address] , tel: [phone] [facility] No Information 3 0 5 Desi Maximino. [address], [address] , . tel: [phone] [facility], [address], [place], [place], [address] , tel: [phone] [facility] Lumbar back pain with radiculopathy affecting right lower extremityMorbid obesity due to excess caloriesHypertensi on, benignParesthesiaM ixed hyperlipidemia 5 Desi Maximino. [address], [address] , . tel: [phone] Referring Provider: Maximino Weeks, [address], [address] . tel:[phone] [facility], [address], [place], [place], [address] , tel: [phone] [facility] Sciatica, unspecified laterality 5 Desi Maximino. [address], [address] , . tel: [phone] [facility], [address], [place], [place], [address] , tel: [phone] [facility] Sciatica, right side 0 5 Desi Maximino. [address], [address] , . tel: [phone] Referring Provider: Maximino Weeks, [address], [address] . tel:[phone] [facility], [address], [place], [place], [address] , tel: [phone] [facility] Benign essential hypertensionBack painSciatic leg painScreening for diabetes mellitusMixed hyperlipidemiaColo n cancer screening 5 Lexx Chavez . [address], [place], [place], [address] , . tel: [phone] Referring Provider: Maximino Weeks, [address], [address] . tel:[phone] [facility], [address], [place], [place], [address] , tel: [phone] [facility] No Information 4 Desi Stanton. 4800 [facility], [address], [address] , . tel: [phone] [facility], [address], [place], [place], [address] , tel: [phone] [facility] Benign essential hypertensionRight knee painLipomaMixed hyperlipidemia 4 [facility]. [address], [facility] [place], [address] . tel: [phone] Referring Provider: Maximino Weeks, [address], [address] . tel:[phone] [facility], [address], [place], [place], [address] , tel: [phone] [facility] Benign essential hypertensionHEMATU NATALIIA NOSDisturbance of skin sensation 2 Desi Stanton. 4800 [facility], [address], [address] , . tel: [phone] Referring Provider: Maximino Weeks, [address], [address] . tel:[phone] [facility], [address], [place], [place], [address] , tel: [phone] [facility] Benign hypertensionFamily history of premature coronary heart diseaseAtypical chest painHeartburnPares thesias/numbnessHe maturiaGroin painScreening for diabetes mellitus 2 Desi Stanton. 4800 [facility], [address], [address] , . tel:[phone] Referring Provider: Maximino Weeks, [address], [place], [address] . tel:[phone] Family History Family Member Type Diagnosis Age [...] Registry Payers Payer name Insurance type Covered alliance party ID Authoriza tion(s) No Information Social History [...]
--- OUTSIDE RECORDS SUMMARY | 2024-12-15 07:35 | XMS_ITS | Clinical Summary ---
Author Organization [facility] Address [facility] [place] [address] Care Team Providers Care Critical Power Install Technician Name Role Phone Vinod Montana MD Unavailable [phone] Kierra Carson MD Primary Care Provider [phone] Social History Tobacco Use Types Packs/Day Years Used Date Smoking Tobacco: Never Assessed Sex and Gender Information Value Date Recorded Sex Assigned at Not on file Legal Sex Male 9:32 AM CDT Gender Identity Not on file Sexual Orientation Not on file Plan of Treatment Health Maintenance Due Date Last Done Comments Colorectal Cancer Screening Colonoscopy (10 Years) 1975 Annual Physical 12/09/1978 Hepatitis C 12/09/1993 DTaP, Tdap and Td Vaccines ( 1 - Tdap) 12/09/1994 Hepatitis B Vaccines (1 of 3 - 19+ 3-dose series) 12/09/1994 COVID-19 Vaccine (2023-2 5 season) 2024 Meningococcal B Vaccine Aged Out No l onger eligible based on patient's age to complete this topic Meningococcal Vaccine Aged Out No pranav eugenia eligible based on patient's age to complete this topic Pneumococcal Vaccine: Pediat rics (0 to 5 Years) and At-Risk Patients (6 to 49 Years) Aged Out No longer eligible b ased on patient's age to complete this topic RSV Immunizations Under 20 Months Aged Out No longer eligible based on patient's age to complete this topic Insurance [facility] Care Teams Critical Power Install Technician Relationship Specialty Start Date End Date Kierra Carson MD [facility] [id number] [address] PCP - General FAMILY PRACTICE 06/17/19 Vinod Montana MD [address] [place] [id number] INTERNAL MEDICINE 07/26/16
--- OUTSIDE RECORDS SUMMARY | 2024-12-15 07:35 | XMS_ITS | Encounter Summary ---
Author Organization [facility] Address [address] [place] [address] Phone Care Team Providers Care Baker Doughnut Name Role Phone Williams Reynaga APRN, CNP Primary Care Pr ovider Scottie Myles MD Unavailable Oliver Vale III, MD, Courtney Unavailable [phone] Reason for Visit * Reason Comments Medication Refill Encounter Details Date Type Department Care Team (Late st Contact Info) Description 01/05/2022 Refill [facility] [address] [place] [id number] Williams Reynaga APRN, KOMAL [address] [address] Medication Refill Social History Tobacco Use Types Packs/Day Years Used Date Smoking Tobacco: Former Cigarettes 0.5 11 0 07/05/1988 - 07/06/1999 Smokeless Tobacco: Never Alcohol Use Standard Drinks/Week Comments Not Currently 0 (1 standard drink = 0.6 oz pur e alcohol) Education Answer Date Recorded What is the highest level of school you have completed or the highest degree you have received? Associate degree: occupational, technical, or vocational program 05/13/2021 Sexually Active Control Partners Comments Not Currently None Female Sex and Gender Information Value Date Recorded Sex Assigned at Not on file Legal Sex Male 2:13 PM SORT MANAGER Gender Identity Not on file Sexual Orientation Not on file documented as of this encounter Miscellaneous Notes * Telephone Encounter - Nola Rodriguez RN - 01/05/2022 11:16 AM CDT PRN medication requires review from provider Per nursing clinical judgement, provider to review and approve the medication(s) order(s) if appropriate. Requested Prescriptions Pending Prescriptions Disp Refills ibuprofen (MOTRIN) 800 MG Tablet [Pharmacy Med Name: IBUPROFEN 800MG TABLETS] 90 Tablet 1 Sig: TAKE 1 TABLET BY MOUTH EVERY 8 HOURS NEEDED FOR MODERATE TO SEVERE PAIN NSAIDs Protocol Passed - 01/05/2022 5:55 AM Passed - Normal serum creatinine in past 12 months CREATININE, BLOOD Date Value Ref Range Status 11/07/2021 0.90 0.80 - 1.30 mg/dL Final Passed - Visit with relevant provider in past 12 months or upcoming 90 days Recent Visits Date Type Provider Dept 11/07/21 Office Visit Williams Reynaga APRN, KOMAL [facility] 09/27/21 Office Visit Williams Reynaga APRN, KOMAL [facility] 09/12/21 Procedure Visit [facility] 09/12/21 Office Visit Williams Reynaga APRN, [facility] 09/01/21 Office Visit Williams Reynaga APRN, K[facility] 07/04/21 Office Visit Williams Reynaga APRN, K[facility] 05/16/21 Office Visit Williams Reynaga APRN, K[facility] 04/06/21 Office Visit Williams Reynaga APRN, GEOLOGICAL E LOGGER [facility] Showing recent visits within past 365 days and meeting all other requirements Future Appointments Date Type Provider Dept 02/20/22 Appointment Williams Reynaga APRN, GEOLOGICAL E LOGGER [facility] Showing future appointments within next 90 days and meeting all other requirements Passed - No matching NSAID med order in past 45 days No matching medication orders between 11/21/2021 11:16 AM and 01/05/2022 11:16 AM Passed - AST less than 55 or ALT less than 90 in past 12 months SGOT (AST) Date Value Ref Range Status 11/07/2021 14 <=40 U/L Final SGPT (ALT) Date Value Ref Range Status 11/07/2021 19 <=41 U/L Final Passed - HGB greater than 10 or HCT greater than 30 in past 12 months HEMOGLOBIN (HGB) Date Value Ref Range Status 11/07/2021 13.8 13.0 - 16.5 g/dL Final HEMATOCRIT (HCT) Date Value Ref Range Status 11/07/2021 43.5 38.0 - 50.0 % Final documented in this encounter Plan of Treatment Upcoming Encounters Date Type Department Care Team (Late st Contact Info) Description 03/30/2025 8:30 AM SORT MANAGER Office Visit [facility] [address] [place] [address] Williams Reynaga APRN, KOMAL [address] [address] documented as of this encounter Visit Diagnoses Diagnosis Chronic right-sided low back pain with right-sided sciatica DDD (degenerative disc disease), lumbar Degeneration of lumbar or lumbosacral intervertebral disc documented in this encounter Additional Health Concerns Infection Onset Date Last Indicated Resolved Time COVID - 19 02/09/2023 02/09/2023 02/19/2023 12:1 6 AM SORT MANAGER documented as of this encounter Care Teams Baker Doughnut Relationship Specialty Start Date End Date Williams Reynaga APRN, GEOLOGICAL E LOGGER [address] [address] PCP - General Advanced Practice Nurse 11/26/20 Scottie Myles MD [address] [address] Consulting Physician Cardiovascular Disease - Cardiology 04/27/22 05/07/24 Alicia Vale III, MD [address] [place] [address] Consulting Physician Urology 05/08/22 documented as of this encounter
--- OUTSIDE RECORDS SUMMARY | 2024-12-15 07:35 | XMS_ITS | Data Portability ---
Author Organization [facility] [place] Address [address] [place] [address] Care Team Providers Care Warp Dresser Name Role Phone SVETA KIERRA Primary Care Provider Assessment Encounter Date Assessment Date Assessment LastModified by Organization Details LastModified Time 01/20/2020 01/20/2020 l [email or web address] Not available 23:28:06 03/30/2020 03/30/2020 constant pain in back, legs, hips. Numbness in feet, has been doing therapy at [place] and is not improving after seven visits. Can't see pain management since MRI was not approved. [email or web address] Not available 04/05/2020 18:22:01 Plan of Treatment Reminders Order Date Submit Date Provider Last Modified By Organization Details Last Modified Time Details Appointments None recorded. Lab HbA1c (hemoglob in A1c), blood 2019 020 [email or web address] In-Office Order, Internal Use Only DO Not Attach Compendium DO Not Attach Compendium, Do Not Delete/merge, [id number] 17:00:48 Referral physical therapist referral 2019 020 [facility] [address] [facility], [address], [place], [address], 0 22:14:55 Procedures None recorded. Surgeries None recorded. Imaging MRI, lumbar spine, w/o contrast 2020 021 [facility], [address], [place], [address], 1 11:55:28 XR, lumbar spine, 2 view 2019 [facility], [address], [place], [address], 0 17:30:18 MRI, lumbar spine, w/ contrast 2019 020 [email or web address], [address], [place], [address], 0 11:22:11 Medication Orders cetirizin e 10 mg tablet 2020 [facility], [address], [place], [place], [id number], 1 12:57:08 ProAir HFA 90 mcg/actua tion aerosol inhaler 2020 [facility], [address], [place], [place], [id number], 1 12:57:10 hydrocodo ne 7.5 mg-acetam inophen 325 mg tablet 2020 [facility], [address], [place], [place], [id number], 1 12:57:12 ketorolac 60 mg/2 mL intramusc ular solution 2020 [email or web address] Not available 13:53:55 baclofen 10 mg tablet 2020 [place]59, [address], [place], [place], [id number], 1 03:32:25 hydrocodo ne 5 mg-acetam inophen 325 mg tablet 2019 [facility], [address], [place], [place], [id number], 1 13:01:25 azelastin e 137 mcg (0.1 %) nasal spray 2019 020 [facility]68687, [address], [place], [place], [id number], 0 15:50:16 meloxicam 15 mg tablet 2019 020 [facility], [address], [place], [place], [id number], 1 15:05:38 methylphe nidate 20 mg tablet 2019 [facility], [address], [place], [place], [id number], 0 15:50:18 Patient TargetsNo targets recorded. Patient Instructions Encounter Date Encounter Id Patient Instructions Last Modified By Organization Details Last Modified Time 01/20/2020 [id number] back care and preventing injuries: care instructions [email or web address] Not available 01/20/2020 15:50:10 03/30/2020 [id number] controlling your asthma: care instructions Not available 03/30/2020 12:57:01 learning about asthma [email or web address] Not available 03/30/2020 12:57:01 Reason for Referral Physical Therapist Referral for Low back pain Referring Physician: Kierra Carson, Family Medicine, Encounter Date: 01/20/2020 Results Created Date Observation Date Name Description Value Unit Range Abnormal Flag Note LastModifiedBy Organization Detail LastModifiedTime 03/08/20 20 03/08/2020 HbA1c (hemo globi n A1c), blood HbA1c 5.7 Not Available In-Office Order Internal Use Only DO Not Attach Compendium DO Not Attach Compendium, Do Not Delete/merge, [id number] 03/08/2020 15:52:51 04/26/19 21 04/26/2020 XR, chest No observ ation record ed. [facility] [address] [facility] [address], [place], [address], 05/11/2020 12:17:33 07/07/19 21 07/06/2020 XR, chest No observ ation record ed. [facility] [address] [facility] [address], [place], [address], 07/25/2020 22:08:57 10/30/19 21 10/29/2020 XR, chest No observ ation record ed. [facility] [address] [facility] [address] [facility] [address], [place], [address], 11/09/2020 16:34:07 11/04/19 21 11/03/2020 XR, chest No observ ation record ed. [place] [id number] [facility] [address], [place], [address], 11/09/2020 16:34:20 01/06/20 21 01/05/2021 XR, chest No observ ation record ed. [facility] [address] [place] [address] Dr, [place], [address], 01/10/2021 10:45:10 Result Notes None recorded. Problems Name Problem SNOMED Code Status Onset Date Resolution Date Notes Provider Name and Address Organization Details Recorded Time Essential hypertensi on 09939683 Active Not Available [facility] 15:06:53 Foot pain 96028043 Completed 05/22/2018 SHANEKA Pantoja NP Attn: Accounting [facility], [place], [address] , [place] - [place] 9 11:44:09 Upper respirator y infection 61279004 Active Not Available [facility] 15:06:53 Carpal tunnel syndrome 86301593 Active Not Available [facility] 15:06:53 Sleep apnea 34148007 Active Not Available [facility] 15:06:53 Obesity 340938745 Active Not Available [facility] 15:06:53 Influenza- like symptoms 190863239 Completed 05/22/2018 SHANEKA Pantoja NP Attn: Accounting ,[address] [place], [place], [address] [place] [address] , [facility] 9 11:43:35 Gastroente ritis 77457430 Completed 05/22/2018 SHANEKA Pantoja NP Attn: Accounting ,[address] [place], [place], [address] [place] [address] , [facility] - [facility] 9 11:43:49 Gastric reflux 997543848 Active Not Available [facility] 15:06:53 Diarrhea 90763637 Completed 05/22/2018 SHANEKA Pantoja NP Attn: Accounting ,[address] [place], [place], [address] [place] [address] , [facility] 9 11:43:52 Sinusitis 05288368 Completed 05/22/2018 SHANEKA Pantoja NP Attn: Accounting ,[address] [place], [place], [address] [place] [address] - [facility] 9 11:43:28 Hyperglyci nemia 93172443 Active Not Available [facility] 15:06:53 Diabetes mellitus 47927888 Active Not Available [facility] 15:06:53 Problem Notes Documentation Provider Name and Address Organization Details Recorded Time White Sugar Syrup Operator Consult Note : This document (1 of 1) was received from [email or web address] Halldis on 04/08/2021 through Direct Message along with the following message body content: Patient Name: ANDRES OSORIO. Patient : 1975. Patient . Rudi das [facility] 04/14/2021 14:57:06 Procedures Surgical History Date Name Laterality Status Provider Name and Address Organization Details Recorded Time 3 Colonoscopy with biopsy completed Kath Osman [facility] 06/26/2017 09:09:57 Imaging Results None recorded. Procedure Notes None recorded. Medical Equipment None Reported. Allergies Allergen ID Allergen Name Allergen Category Reaction Reaction Severity Criticality Documentation Date Start Date Code Code System Note Provider Name and Address Organization Details Recorded Time 280645 allopurin ol medicatio n diarrhea Not available Not available 10/08/2018 519 RxNorm JUSTINE Rodríguez, [facility] 9 10:33:42 2901 Product containin g penicilli n (product) medicatio n Not available Not available Not available 02/10/2014 85658 8001 SNOMED JUSTINE Gustaf[place], [place] - [place] 4 11:10:44 2902 lisinopri l medicatio n Not available Not available Not available 02/10/2014 68286 RxNorm JUSTINE Gustafson, [facility] SI 4 11:10:44 Medications Name Sig Start Date Stop Date Status Note LastModified by Organization Details LastModified Time Prescript ion - Renewal active Cpap Supplies Not Available Not Available Not Available one touch delicate lancets check fasting blood sugar daily active Not Available Not Available No t Available cyclobenz aprine 10 mg tablet 03/30 completed Not Available Not Available Not Available budesonid e 32 mcg/actua tion nasal spray [place] 1 spray every day by intranas al route. 07/03 completed Not Available Not Available Not Available fluconazo le 100 mg tablet TAKE 1 TABLET BY MOUTH DAILY FOR 14 DAYS active Not Available Not Available No t Available atorvasta tin 40 mg tablet Take 1 tablet every day by oral route at dinner. active Not Available Not Available No t Available metformin 500 mg tablet TAKE 1 TABLET BY MOUTH TWICE DAILY 09/13 completed Not Available Not Available Not Available Augmentin 875 mg-125 mg tablet Take 1 tablet every 12 hours by oral route for 10 days. 12/31 completed has taken amoxicil christin in the past Not Available Not Available Not Available clindamyc in HCl 300 mg capsule 05/22 completed Not Available Not Available Not Available cetirizin e 10 mg tablet TAKE 1 TABLET BY MOUTH EVERY DAY active Not Available Not Available No t Available azithromy elisa 250 mg tablet TAKE 2 TABLETS (500 MG) BY ORAL ROUTE ONCE DAILY FOR 1 DAY THEN 1 TABLET (250 MG) BY ORAL ROUTE ONCE DAILY FOR 4 DAYS 08/13 completed Not Available Not Available Not Available ibuprofen 800 mg tablet Take 1 tablet 3 times a day by oral route as needed for 30 days. active Not Available Not Available No t Available tizanidin e 4 mg tablet TAKE 1 TO 2 TABLETS BY MOUTH THREE TIMES DAILY NEEDED active Not Available Not Available No t Available fluconazo le 150 mg tablet TAKE 1 TABLET BY MOUTH EVERY 72 HOURS active Not Available Not Available No t Available methylphe nidate 10 mg tablet Take 1 tablet twice a day by oral route. 06/29 completed Not Available Not Available Not Available hydrocodo ne 5 mg-acetam inophen 325 mg tablet TAKE 1 TABLET BY MOUTH THREE TIMES DAILY 05/17 completed Not Available Not Available Not Available methylphe nidate 20 mg tablet TAKE 1 TABLET BY MOUTH TWICE DAILY active Not Available Not Available No t Available meloxicam 15 mg tablet Take 1 tablet every day by oral route. 04/01 completed Not Available Not Available Not Available prednison e 20 mg tablet 08/13 completed Not Available Not Available Not Available acetamino phen 300 mg-codein e 30 mg tablet 05/22 completed Not Available Not Available Not Available chlorthal idone 25 mg tablet 03/30 completed Not Available Not Available Not Available chlorthal idone 50 mg tablet TAKE 1 TABLET BY MOUTH EVERY DAY 03/30 completed Not Available Not Available Not Available omeprazol e 40 mg capsule,d elayed release Take 1 capsule( s) every day by oral route for 30 days. 01/09 completed Not Available Not Available Not Available tramadol 50 mg tablet Take 1 tablet twice a day by oral route as needed. 08/13 completed Not Available Not Available Not Available ketorolac 10 mg tablet active Not Available Not Available Not Available Tessalon Perles 100 mg capsule Take 1 capsule 3 times a day by oral route for 10 days. 12/31 completed Not Available Not Available Not Available prednisol one acetate 1 % eye drops,celestino pension 05/22 completed Not Available Not Available Not Available methocarb liza 750 mg tablet TAKE 1 TABLET BY MOUTH THREE TIMES DAILY NEEDED active Not Available Not Available No t Available NTE EnergyTouch Ultra Test strips USE DIRECTED TWICE A DAY 09/21 completed Not Available Not Available Not Available baclofen 10 mg tablet TAKE 1 TABLET BY MOUTH FOUR TIMES DAILY active Not Available Not Available No t Available amlodipin e 10 mg tablet TAKE 1 TABLET BY MOUTH EVERY DAY active Not Available Not Available No t Available doxycycli ne monohydra te 100 mg capsule Take 1 capsule twice a day by oral route. 08/13 completed Not Available Not Available Not Available hydrocodo ne 7.5 mg-acetam inophen 325 mg tablet TAKE 1 TABLET BY MOUTH TWICE DAILY NEEDED FOR MODERATE TO SEVERE PAIN active Not Available Not Available No t Available cephalexi n 500 mg capsule Take 1 capsule twice a day by oral route for 10 days. 02/26 completed Not Available Not Available Not Available oseltamiv ir 75 mg capsule Take 1 capsule every day by oral route for 10 days. 06/14 completed Not Available Not Available Not Available ferrous sulfate 325 mg (65 mg iron) tablet Take 1 tablet twice a day by oral route. 02/07 completed Not Available Not Available Not Available metformin 1,000 mg tablet TAKE 1 TABLET BY MOUTH TWICE DAILY active Not Available Not Available No t Available nystatin 100,000 unit/gram topical cream APPLY TO THE AFFECTED AREA(S) BY TOPICAL ROUTE 2 TIMES PER DAY active Not Available Not Available No t Available nitroglyc crow 0.4 mg sublingua l tablet take one every five minutes as needed for chest pain; if you need to take 3 tablets, take an aspirin and call 911. active Not Available Not Available No t Available dextroamp hetamine- amphetami ne ER 10 mg 24hr capsule,e xtend release Take 1 capsule every day by oral route. 04/05 completed Not Available Not Available Not Available monteluka st 10 mg tablet Take 1 tablet every day by oral route for 30 days. 07/14 completed Not Available Not Available Not Available allopurin ol 300 mg tablet TAKE 1 TABLET BY MOUTH EVERY DAY active Not Available Not Available No t Available hydrochlo rothiazid e 25 mg tablet 06/14 completed Not Available Not Available Not Available furosemid e 20 mg tablet Take 1 tablet every day by oral route as needed. 05/22 completed Not Available Not Available Not Available gabapenti n 100 mg capsule Take 1 capsule 3 times a day by oral route. 08/13 completed Not Available Not Available Not Available ergocalci ferol (vitamin D2) 1,250 mcg (50,000 unit) capsule TAKE 1 CAPSULE BY MOUTH 1 TIME A WEEK active Not Available Not Available No t Available irbesarta n 150 mg tablet TAKE 1 TABLET BY MOUTH AT BEDTIME active Not Available Not Available No t Available azelastin e 137 mcg (0.1 %) nasal spray [place] 2 sprays twice a day by intranas al route. active Not Available Not Available No t Available Nasonex 50 mcg/actua tion [place] SPRAY 2 SPRAY(S) EVERY DAY BY INTRANAS AL ROUTE FOR 30 DAYS. 02/07 completed Not Available Not Available Not Available ibuprofen 600 mg tablet 01/19 completed Not Available Not Available Not Available methylpre dnisolone 4 mg tablets in a dose pack FOLLOW PACKAGE DIRECTIO NS active Not Available Not Available No t Available albuterol sulfate HFA 90 mcg/actua tion aerosol inhaler INHALE 1 TO 2 PUFFS BY MOUTH EVERY 6 HOURS NEEDED active Not Available Not Available No t Available ketorolac 60 mg/2 mL intramusc ular solution Inject 2 mL by intramus cular route as directed . 2020 active Not Available Not Available Not Avai lable pioglitaz one 30 mg tablet TAKE 1 TABLET BY MOUTH EVERY DAY 12/02 completed Not Available Not Available Not Available ondansetr on 4 mg disintegr ating tablet 06/07 completed Not Available Not Available Not Available losartan 100 mg tablet TAKE 1 TABLET BY MOUTH EVERY DAY 01/14 completed Not Available Not Available Not Available fluticaso ne propionat e 50 mcg/actua tion nasal spray,celestino pension One squirt each nostril twice daily. 09/21 completed Not Available Not Available Not Available doxycycli ne hyclate 100 mg tablet Take 1 tablet twice a day by oral route for 10 days. 01/01 completed Not Available Not Available Not Available naproxen 500 mg tablet TAKE 1 TABLET BY MOUTH TWICE DAILY active Not Available Not Available No t Available probeneci d 500 mg tablet TAKE 1 TABLET BY MOUTH once daily to lower uric acid. 08/13 completed Not Available Not Available Not Available Bactrim DS 800 mg-160 mg tablet Take 1 tablet every 12 hours by oral route for 7 days. 04/21 completed Not Available Not Available Not Available ciclopiro x 0.77 % topical cream 03/30 completed Not Available Not Available Not Available cyclobenz aprine 5 mg tablet 05/22 completed Not Available Not Available Not Available One Touch Ultra Test Strips use as directed twice daily 2017 active Not Available Not Available Not Avai lable Januvia 100 mg tablet TAKE 1 TABLET BY MOUTH EVERY DAY active Not Available Not Available No t Available Zyrtec 10 mg capsule Take 1 capsule by oral route for 30 days. 01/09 completed Not Available Not Available Not Available Dulera 200 mcg-5 mcg/actua tion HFA aerosol inhaler 01/09 completed Not Available Not Available Not Available Suprep Bowel Prep Kit 17.5 gram-3.13 gram-1.6 gram oral solution 08/13 completed Not Available Not Available Not Available OneTouch Delica Lancets 30 gauge 09/21 completed Not Available Not Available Not Available Virtussin AC 10 mg-100 mg/5 mL oral liquid Take 5 mL every 6 hours by oral route as needed. 06/14 completed Not Available Not Available Not Available Jardiance 10 mg tablet TAKE 1 TABLET BY MOUTH EVERY MORNING active Not Available Not Available No t Available Belsomra 10 mg tablet Take one tablet at bedtime. 07/03 completed Not Available Not Available Not Available OneTouch Ultra Blue Test Strip USE TWICE DAILY DIRECTED active Not Available Not Available No t Available OneTouch Delica Plus Lancet 33 gauge USE TO CHECK BLOOD SUGAR TWICE DAILY active Not Available Not Available No t Available ID NOW COVID-19 Test Kit TEST DIRECTED active Not Available Not Available No t Available Vitals Date Recorded Body height Provider Name an d Address Organization Details Last Updated DateTime 03/30/2020 171.45 cm Aishwarya Saini MA [facility] 03/30/2020 10:41:46 Social History Question Answer Notes LastModified by Organizat ion Details LastModified Time Tobacco Smoking Status Former Smoker Marijuana- Occasionall y, did a couple of days ago to help with pain but stopped Aishwarya Saini MA null, [place] - [facility] 03/30/2020 10:44:52 Do You Have An Advance Directive? No Information not available 03/30/2020 What Is Your Level Of Caffeine Consumption? None Information not available 05/22/2018 How Much Tobacco Do You Chew? None Information not available 02/23/2020 What Type Of Diet Are You Following? REGULAR Information not available 05/13/2019 Which Illicit Or Recreational Drugs Have You Used? None Information not available 03/30/2020 Education 2 Year College Information not available 03/30/2020 Are There Any Guns Present In Your Home? No [email or web address] Information not available 2014 Hard Of Hearing Or Deaf In One Or Both Ears? No [email or web address] Information not available 2014 Legally Blind In One Or Both Eyes? No [email or web address] Information not available 2014 Live Alone Or With Others? With Others [email or web address] Information not available 2014 What Was The Date Of Your Most Recent Tobacco Screening? 03/30/2020 Information not available 03/30/2020 How Many Children Do You Have? 4 Information not available 05/13/2019 Smoke Alarm In Home Yes Information not available 05/13/2019 At What Age Did You Start Smoking Tobacco? 16 Information not available 08/14/2019 Are You Passively Exposed To Smoke? Yes Information not available 05/13/2019 How Much Tobacco Do You Smoke? No Information not available 05/13/2019 General Stress Level Low Information not available 05/13/2019 On What Date Was Tobacco Cessation Counseling Provided? 08/14/2019 Information not available 08/14/2019 Sex: Unknown Functional Status Question Answer Note LastModified by Organizat ion Details LastModified Time What is your level of alcohol consumption? None Information not available 05/22/2018 Do you or have you ever used smokeless tobacco? Never used smokeless tobacco Information not available 05/13/2019 Are you currently employed? No Information not available 05/22/2018 Are you able to care for yourself independently? Yes [email or web address] Information not available 2014 What is your occupation? unemployed Information not available 03/30/2020 Do you or have you ever used e-cigarettes or vape? Former user of electronic cigarettes [email or web address] Information not available 01/14/2019 Mental Status None recorded. Family History Relationship Description Onset Age of this Age Resolved Age Notes LastModified by Organization Details LastModified Time Mother Coronary arteritis [email or web address] Not available 10/07 10:14:27 Mother Diabetes mellitus [email or web address] Not available 10/07 10:14:27 Mother Hypertensive disorder [email or web address] Not available 10/07 10:14:27 Father Hypertensive disorder Not available 10/07 10:14:27 Father Heart disease [email or web address] Not available 10/07 10:14:27 Medical History Condition Response Coronary Artery Disease N Other N High Blood Pressure Y Atrial Fibrillation N Thyroid Problems N Kidney or Bladder Problems N GI Problems N Depression N COPD N Blood Clots N Skin Problems N Eating Disorder N Anemia N Heart Attack ([place]) N Anxiety Disorder N Diabetes Y Muscle, Joint, or Bone Problems N Seizures/Epilepsy N Acid Reflux (GERD) N Cancer N Stroke N Asthma N Allergies Y ADHD Y Substance Abuse N High Cholesterol N Hepatitis N Liver Disease N Schizophrenia N Headaches N Heart Failure N Osteoporosis N Immunizations Vaccine Type Date Status Note Provider Nam e and Address Organization Details Recorded Time COVID-19, mRNA, LNP-S, PF, 30 mcg/0.3 mL dose 1 completed Not Available [facility] 10/07/2020 07:47:33 COVID-19, mRNA, LNP-S, PF, 30 mcg/0.3 mL dose 1 completed Not Available [facility] 10/07/2020 07:47:33 Influenza, split virus, quadrivalent, preservative 9 completed Not Available [facility] 04/05/2019 02:50:30 Influenza, split virus, quadrivalent, preservative 0 completed Aishwarya Saini MA [facility], [place] - [place] 03/08/2020 15:53:30 Past Encounters Encounter ID Performer Location Encounter Start Date Encounter Closed Date Diagnosis/Indication Diagnosis SNOMED-CT Code Diagnosis ICD10 Code Diagnosis IMO Codes Diagnosis Note [id number] [place] [address] 02/10/2014 10:55:59 02/12/2014 03:49:53 Essential hypertension 93153088 cont meds. reviewed lab--FBS 116/A1C5.4 ..but w/ wt gain, stay on metformin reports sleep apnea--nee ds new equipment. Needs to get name of supplier/ order from them Foot pain 88853741 to podiatry try to decr wt w/ some walking as imani try ice prn to feet [id number] Roslyn Brumfield MD [facility] [address] [address] 03/18/2014 10:24:59 03/18/2014 11:30:58 Sinusitis 24983580 [place] [id number] Roslyn Brumfield MD [address] [address] 04/10/2014 10:40:34 04/10/2014 14:45:57 Diabetes mellitus 47656525 REVIEWED DIET--need s to work on thar reviewed meds--take metformin am and supper ch bs's fast, and 2hr pp supper--go als set--never over 180; F 100-120, supper 140-150 [id number] Michel Matthews MD [address] [address] 06/02/2014 10:35:33 06/02/2014 13:42:29 Diabetes mellitus 42425016 Essential hypertension 00155591 Upper resp iratory infection 92233331 Carpal francesco essie syndrome 88835404 Sleep apnea 24978449 Obesity 496984668 [id number] Michel Matthews MD [facility] [address] [address] 10/06/2014 09:49:41 10/06/2014 11:11:57 Carpal tunnel syndrome 32272698 Diabetes mellitus 99578994 Essential hypertension 97619700 Hyperglycinemia 88232075 Obesity 879802496 Sleep apnea 19011311 Upper resp iratory infection 74956508 [id number] Michel Matthews MD [facility] [address] [address] 2014 11:34:32 2014 12:21:37 Diabetes mellitus 46488919 Essential hypertension 16246342 Obesity 473180576 Sinusitis 74073642 Sleep apnea 12119672 [id number] Michel Matthews MD [address] [address] 01/07/2015 09:42:05 01/07/2015 10:28:21 Carpal tunnel syndrome 81478237 G56.02 Diabetes mellitus 184997 09 E11.9 Essential hypertension 20741646 I10 Obesity 347136657 E66.9 Sleep apnea 91555963 G47 .30 [id number] Michel Matthews MD [address] [address] 04/13/2015 09:56:49 04/13/2015 11:01:45 Sinusitis 25713602 J32.9 Gastroenteritis 43180552 K52.9 Upper resp iratory infection 59215791 J06.9 Diabetes mellitus 438611 09 E11.9 [id number] Michel Matthews MD [address] [address] 04/22/2015 14:49:22 04/22/2015 15:52:15 Diabetes mellitus 49452593 E13.65 Gastric reflux 546147211 K21.9 Diarrhea 75011907 R19.7 [id number] Vinod Montana MD [address] [address] 06/25/2015 10:15:54 06/25/2015 11:07:08 Diabetes mellitus 64611855 E11.9 Essential hypertension 69654822 I10 Obesity 583336495 E66.9 Cut back on sodas, drink more h2o Sleep apnea 55861970 G47 .30 Allergic rhinitis 318399 04 J30.9 Stop omeprazole as it has not helped. Stop dulera as has no formal diagnosis of asthma, was put on it once for bronchitis . Stop afrin, has been using it for 1 year now!! Carpal francesco essie syndrome 70919902 G56.00 B/L, Has had NCS done, but did not get surgery. He does get paresthesi ae in both hands. Foot pain 65242336 M79.6 73 B/L foot pain 3-4 weeks. [id number] Vinod Montana MD [address] [address] 07/09/2015 10:19:43 07/09/2015 10:54:56 Diabetes mellitus 04232284 E13.65 Allergic rhinitis 689938 04 J30.9 Is weaning himself of the afrin. Is off dulera. Carpal francesco essie syndrome 62269100 G56.00 B/L, Has had NCS done, but did not get surgery. He does get paresthesi ae in both hands. He says his NCS test is in our records. Will refer for possible surgery. Essential hypertension 89194205 I10 Foot pain 21589350 M79.6 73 Ok to take ibuprofen as needed w/o fear of getting groggy. Gastric reflux 969611657 K21.9 Doing weel off omeprazole . Obesity 592664580 E66.9 Cut back on sodas, drink more h2o Sleep apnea 76658793 G47 .30 He says he needs new cpap supplies. Will contact his [employer] company. Microalbuminuria 3629560 06 R80.9 Will monitor. Continue losartan. Anemia 335763982 D64.9 [id number] Vinod Montana MD [facility] [address] [address] 10/08/2015 10:03:10 10/08/2015 10:45:43 Diabetes mellitus 39947601 E13.65 Decrease metformin to once daily only. Allergic rhinitis 681693 04 J30.9 Couldn't come off afrin. Anemia 943643177 D64.9 Did not take iron pills. will monitor. 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 Doing well. Essential hypertension 05745889 I10 Gastric reflux 854702448 K21.9 Doing well off omeprazole . Sleep apnea 79874121 G47 .30 Alanine aminotransferase above reference range 380275290 R74.0 Monitor. Was normal in June. Is taking gym supplement s. Vitamin D deficiency 347 40649 E55.9 [id number] Vinod Montana MD [address] [address] 01/10/2016 13:57:47 01/11/2016 08:22:44 Acute bronchitis 13969336 J20.9 Acute diarrhea 583527596 R19.7 Supportive treatment. Imodium otc, increased fluids. [id number] Vinod Montana MD [address] [address] 02/08/2016 10:49:46 02/14/2016 16:18:49 Diabetes mellitus 43615463 E13.65 Well controlled . He needs to see Opthalmolo gy. Asked him to call their office and make appt. Sleep apnea 74551329 G47 .30 Essential hypertension 85072042 I10 Alanine aminotransferase above reference range 298103064 R74.0 Normal now. Gastric reflux 602995957 K21.9 Doing well off omeprazole . Anemia 145128813 D64.9 Allergic rhinitis 605748 04 J30.9 Trial of singulair. Vitamin D deficiency 347 23089 E55.9 Result pdg at this time, will wait on that. Microalbuminuria 0096813 06 R80.9 Will monitor. Continue losartan. His blood pressure and diabetes are well controlled . Insomnia 047297544 G47.0 0 Abscess of pinna 3483454 00 H60.02 [id number] Vinod Montana MD [address] [address] 04/21/2016 12:45:01 05/11/2016 16:01:05 Acute sinusitis 40870344 J01.90 Continue flonase. [id number] Vinod Montana MD [address] [address] 07/03/2016 14:15:47 07/28/2016 15:39:10 Edema of lower extremity 291989388 R60.0 In setting of microscopi c hematuria, could be nephrotic syndrome. Stop hctz. [id number] Isaak Gong MD [facility] ([address] [facility]) [address] [place] [address] 07/03/2016 15:47:24 07/04/2016 15:29:16 Essential hypertension 46934256 I10 Continue Losartan and Furosemide as prescribed by Dr Montana. Low Sodium diet discussed. Diabetes mellitus 274424 09 E11.9 Needs good control. On Metformin at this time Abnormal urinalysis 1672 81210 R82.90 had trace blood on dipstick. Will get microscopy and routine labs Hypertensive disorder 38 017394 I10 continue current medication s. Check labs. Will decide follow up depending on lab results [id number] Vinod Montana MD [address] [address] 07/14/2016 10:45:09 08/03/2016 14:55:26 Essential hypertension 95603719 I10 Edema of l ower extremity 123060129 R60.0 2 d echo. Dyspnea at rest 54019235 7 R06.00 2 d echo. Fatigue 34405037 R53.83 Sleep study. [id number] Vinod Montana MD [address] [address] 08/10/2016 11:29:52 08/16/2016 11:09:55 Paresthesia of lower extremity 635720108 R20.2 Both sides. [id number] Vinod Montana MD [address] [address] 05/03/2017 15:27:25 05/04/2017 10:07:44 Acute sinusitis 24045356 J01.90 Continue flonase nasal spray. [id number] Vinod Montana MD [address] [address] 06/14/2017 11:03:21 06/15/2017 14:27:42 Gastric reflux 552645051 K21.9 Doing well off omeprazole . Obesity 446708112 E66.9 Essential hypertension 10819327 I10 Diabetes mellitus 970352 09 E13.65 Well controlled . He needs to see Opthalmolo gy. Asked him to call their office and make appt. Sleep apnea 61883840 G47 .30 Microalbuminuria 1287560 [address] Gong in past, but still is getting protein in urine. Mass of right breast 285 0835316 4177891 N63.12 History of polyp of colon 422541071 Z86.010 Edema of l ower extremity 468170835 R60.0 Acute bronchitis 5582658 2 J20.9 [id number] SHANEKA Pantoja NP [address] [address] 07/11/2017 10:34:56 07/13/2017 12:31:41 Low back pain 606647471 M54.5 Toradol 60 mg IM this visit. Start physical therapy. Continue conservati ve tx- ice, heat, rest, stretching , ROM exercises. F/u 2 weeks. Given note for work. [id number] SHANEKA Pantoja NP [facility] [address] [place] [address] 07/23/2017 11:56:55 07/23/2017 17:31:30 Body mass index 40+ - severely obese 311294717 Z68.43 Refer to bariatric specialist Low back pain 498552131 M54.5 Continue physical therapy. Continue conservati ve tx- ice, heat, rest, stretching , ROM exercises. F/u 2 weeks. Given note for work [id number] SHANEKA Pantoja NP [facility] [address] [place] [place] [address] 08/23/2017 11:44:00 08/23/2017 16:54:30 Low back pain 272368030 M54.5 Continue physical therapy. Continue conservati ve tx- ice, heat, rest, stretching , ROM exercises. F/u 2 weeks. Given note for work [id number] SHANEKA Pantoja NP [facility] [address] [place] [address] 09/21/2017 11:15:04 09/26/2017 12:05:59 Diabetes mellitus 29645192 E11.9 -Continue metformin 1000mg BID-Discus sed diabetic diet Low back pain 856537637 M54.5 -Continue physical therapy.-C ontinue conservati ve tx- ice, heat, rest, stretching , ROM exercises. -Obtain MRI of lumbar and thoracic spine-F/u 2 weeks or sooner if needed [id number] SHANEKA Pantoja NP [facility] [address] [place] [address] 10/19/2017 11:35:37 10/22/2017 12:38:40 Diabetes mellitus 62874544 E11.9 -Continue metformin 1000 mg BID-Discus sed diabetic diet-Repea t HgA1C today Acute sinusitis 70374215 J01.90 -Start oral antibiotic -Allergen avoidance- OTC antihistam eulalio and flonase Low back pain 823767877 M54.5 -Continue physical therapy.-C ontinue conservati ve tx- ice, heat, rest, stretching , ROM exercises. -Obtain MRI of lumbar and thoracic spine-F/u 2 weeks or sooner if needed-Pt not working, employer will not let him work until he is released to full duty [id number] SHANEKA Pantoja NP [facility] [address] [place] [address] 11/28/2017 10:41:18 11/28/2017 12:56:38 Pain of breast 64219733 N64.4 -Refer to breast surgeon [id number] SHANEKA Pantoja NP [facility] [address] [facility] [place] [address] 01/01/2018 10:23:53 01/01/2018 11:05:13 Acute sinusitis 32294647 J01.90 -Start oral antibiotic -Allergen avoidance- OTC antihistam eulalio and flonase-F/ u prn [id number] SHANEKA Pantoja NP [facility] [address] [facility] [place] [address] 02/26/2018 15:50:39 02/26/2018 17:08:08 Upper respiratory infection 78242370 J06.9 -Start oral antibiotic s-Proair prn-Conser vative tx- OTC antihistam eulalio, flonase, tylenol, ibuprofen, rest, increase fluids-F/u prn [id number] SHANEKA Pantoja NP [facility] [address] [place] [address] 05/22/2018 10:52:43 05/22/2018 12:03:13 Diabetes mellitus 94236768 E11.9 -Continue metformin 1000 mg BID-Discus sed diabetic diet and exercise-R epeat HgA1C today (7.7) Family his tory of cancer of colon 578989040 Z80.0 -Refer to GI [id number] Kierra Carson MD [facility] [address] [facility] [place] [address] 06/07/2018 10:00:22 06/13/2018 07:55:44 Renal disorder due to type 2 diabetes mellitus 273186014 E11.22 Chronic diarrhea 7586866 09 K52.9 scheduled for colonoscop y with [facility] on July 01. strong family history of colon cancer. Acute righ t otitis media 970788041 H66.91 Chicken soup, orange juice, sugar free popsicles, tea with honey and lemon, hot Crystal Light lemonade, gatorade, and yogurt may make you feel better. Acute sinusitis 99496797 J01.90 Bilateral ankle joint pain 4107045157 1122129 M25.571 M25.572 Gynecomastia 2976265 N62 scheduled for mastectomy in [place] in the near future. [id number] Kierra Carson MD [facility] [address] [place] [address] 08/05/2018 10:44:01 08/14/2018 08:59:16 Thoracic back pain 172188899 M54.6 Disorder o f kidney due to diabetes mellitus 432332036 E11.21 [id number] Kierra Carson MD [facility] [address] [place] [address] 09/05/2018 10:19:36 09/13/2018 08:55:47 Acute sinusitis 24232973 J01.90 Type 2 antolin betes mellitus 99465983 E11.65 Knee pain 65900573 M25.5 69 Fatigue 63265603 R53.83 Dependence on continuous positive airway pressure ventilation 690713583 Z99.11 encouraged consistent use of CPAP Chronic back pain 469790 002 M54.17 Pain of le ft ankle joint 3832627356 6679102 M25.385 [id number] Kierra Carson MD [facility] [address] 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 Strain of tendon of left ankle 2177221710 9672155 S96.912A [id number] Kierra Carson MD [facility] [address] [place] [address] 12/02/2018 13:58:23 12/09/2018 09:47:48 Chest pain 91619816 R07.2 Cramp in lower limb 4499 46974 R25.2 Bilateral knee pain 1187 710302 8489560 M25.562 M25.561 Peripheral circulatory disorder due to type 2 diabetes mellitus 251437007 E11.51 [id number] Kierra Carson MD [facility] [address] [place] [address] 01/14/2019 11:57:13 01/20/2019 08:29:43 History of chest pain 2512131714 9020133 Z87.898 Essential hypertension 37948583 I10 Attention deficit hyperactivity disorder, predominantly inattentive type 26485091 F90.0 Pain of le ft shoulder joint 2372681916 0179547 M25.512 Active or passive immunization 532214661 Z23 risks and benefits of immunizati ons reviewed, and patient agreed to receive shot [id number] Kierra Carson MD [facility] [address] [place] [address] 05/13/2019 09:49:39 05/19/2019 08:50:54 Lumbar radiculopathy 987998833 M54.16 Allergic rhinitis 847456 04 J30.9 Adult heal th examination 655321910 Z00.00 Type 2 antolin betes mellitus 40100949 E11.65 Attention deficit hyperactivity disorder, predominantly inattentive type 68714510 F90.0 Depression screening 171 522616 Z13.31 depression related to chronic pain and difficulty sleeping due to the pain. [id number] Kierra Carson MD [facility] [address] [place] [address] 08/14/2019 09:35:34 08/19/2019 08:54:36 Renal disorder due to type 2 diabetes mellitus 609185998 E11.22 will try to get patient lined up for bariatric surgery to control the blood sugars and help preserve renal function. Acute panniculitis 37609 6004 M79.3 Morbid obesity 040495959 E66.01 [id number] Kierra Carson MD [facility] [address] [place] [address] 01/20/2020 15:31:44 01/26/2020 08:41:48 Knee pain 11298820 M25.569 starting physical therapy in January Attention deficit hyperactivity disorder, predominantly inattentive type 78322234 F90.0 symptoms are relieved with use of stimulant medication ; can focus and achieve completed tasks without being distracted and doing something else. Low back pain 279542171 M54.5 lots of pain in back and radiating into the legs. Also has chronic pain in the knees. Acute sinusitis 78345723 J01.90 mainly allergy, but can get infected and develop headache and purulent nasal discharge. [id number] Kierra Carson MD [facility] [address] [place] [address] 02/23/2020 10:50:00 02/27/2020 05:56:16 Low back pain co-occurrent with neuralgia of right sciatic nerve 7689111247 45749 M54.41 trouble getting up, standing, or sitting down again, has been going to therapy and saw a chiropract or but is not improving at all. started PT last week. Has trouble sleeping due to pain. Got much worse about a month ago. Has had back problems for years. Does not smoke. No incontinen ce or lack of ability to get an erection. No recent history of trauma, no car accident, no falls, but is feeling much worse and is having trouble getting out of bed, walking to bathroom, dressing, and walking to the kidtchen; can't fix himself a sandwich due to pain with standing. Lumbar radiculopathy 128 400198 M54.16 [id number] Kierra Carson MD [facility] [address] [place] [address] 03/08/2020 15:44:39 03/09/2020 07:27:37 Administration of influenza vaccine 53161043 Z23 Consent signed sd,rma Type 2 antolin betes mellitus 44668432 E11.65 [id number] Kierra Carson MD [facility] [address] [place] [address] 03/30/2020 10:40:48 04/09/2020 15:29:54 Thoracic back pain 656844015 M54.6 Allergic rhinitis 092743 04 J30.9 Asthma 721015060 J45.90 9 Chronic back pain 308089 002 M54.17 constant pain in back, legs, hips. Numbness in feet, has been doing therapy at [facility] and is not improving after seven visits. Can't see pain management since MRI was not approved. Moderate depression 3104 51214 F32.1 [id number] Kierra Carson MD [facility] [address] [place] [address] 03/31/2020 13:14:29 04/01/2020 14:56:24 Health Concerns Section Related Observation LastModified by Organization Detai ls LastModified Time None Recorded Concern Status LastModified by Organization Details LastModified Time None Recorded Advance Directives Directive N: Payers Insurance Date Sequence Insurance Name Policy Number Policy Calvert Covered Member ID Calvert Member ID Guarantor Name 10/18/2020 1 [place] [id number] Alicia Osorio [id number] Andres Osorio 07/12/2015 1 [facility] Andres Osorio [id number] Andres Osorio 04/13/2015 1 [employer] [id number] Alicia Osorio [id number] Andres Osorio 05/13/2019 1 [facility] [id number] Alicia Osorio [id number] Andres Osorio Notes Date Note Type Note Provider Name and Address Organization Details Recorded Time 01/20/20 20 text/htm l Sinusitis/AllergyReported by PatientHPIFor associated symptoms, patient reportsconstantly clearing the throat,nasal discharge, andnasal itchingbut reportsno headacheandno sinus pain. For severity, patient reportsfrequent breathing through the mouthbut reportsdoes not limit daily activitiesandno nosebleeds (epistaxis). For context, patient reportsworse with seasonal allergen exposure,worse around animals,worse around pollen,worse around dust,worse around molds, andworse with environmental exposure. For risk factors, patient reportshistory of smoking,increased stress,family history of allergies,history of asthma, anddmbut reportsno current smoking or tobacco use,no chemotherapy,no hiv, andno immunodeficiency. For onset/timing, patient reportsgradual onset,recurring, andoccurs during particular seasons of the year fall. For aggravating factors, patient reportsworse during an upper respiratory infection (a cold),worse when allergies are active, andworse with excess fatigue. For alleviating factors, (better with azelastine). ADHDReported by PatientHPIFor organization, patient reportspoorly organized. For attention, patient reportsunable to focus. For impulsivity, patient reportsimpulsive. For tasking, patient reportsunable to complete tasks,unable to move on to the next task,procrastinates, andtends to start everything and finish nothingbut reportsable to initiate tasks. For appetite, patient reportsnormal appetiteandno binge eating. For mood, patient reportsstable. For sleep, patient reportsgood. For friends, patient reportswell connected with peers. For family, patient reportsno new stressors. For self esteem, patient reportshigh. For hyperactivity, patient reportsis not hyperactive. For school performance, (struggled while in school).has improved with methylphenidate; is getting things done and is more organized; less likely to forget things that he needs to bring with him. Musculoskeletal PainReported by PatientHPIFor location, patient reportspain radiating to the buttocksandpain radiating to the legs bilateralbut reportslumbar spineandbilateral knee. For quality, patient reportssharp. For severity, patient reportsworsening,interference with sleep, andinterference with work. For associated symptoms, patient reportsweak limbsbut reportsno fever,no tingling,no numbness of the legs/feet, andno incontinence. For duration, patient reportspresent for >12 months. For timing, patient reportsintermittent. For context, patient reportsunusual activity,prior back problems, andused medication for back pain. For alleviating factors, patient reportsrestandrelieved by changing position. For aggravating factors, patient reportsmovement/positioning,coleman ding over, andtwisting. For adl (activities of daily living), patient reportsimprove with medication.ROS as noted in the HPI Kierra Carson MD Attn: Accounting,[address] [place], [address], [facility] 01/25/2020 23:29:39 02/23/20 20 text/htm l Back PainReported by PatientHPIFor location, patient reportspain radiating to the buttocks,pain radiating to the legs,pain radiating to the foot, andpain radiating to the ankle. For quality, patient reportssharpandtingling. For severity, patient reportsworsening,severe (8-10),interference with sleep, andinterference with work. For aggravating factors, patient reportsmovement/positioning,twi sting, andextending back. For associated symptoms, patient reportsweak limbs,numbness of the legs/feet, andtinglingbut reportsno fever,no incontinence, andno shortness of breath. For duration, patient reportsintermittent. For onset/timing, patient reportsrecurrent episode. For context, patient reportsprior back problemsandused medications for back pain. For alleviating factors, patient reportsrestandrelieved by changing position.legs feel weak; patient concerned he may fall, has to sit down frequently.ROS as noted in the [facility] Kierra Carson MD Attn: Accounting,[address] [place], [address], [facility] 02/26/2020 10:36:27 03/30/19 21 text/htm l Sinusitis/AllergyReported by PatientHPIFor associated symptoms, patient reportsthick phlegm in throat,constantly clearing the throat,nasal discharge, andnasal itchingbut reportsno hemoptysis,no hematemesis,no nausea or vomiting,no sinus pain,no sore throat, andno ear fullness. For severity, patient reportsfrequent breathing through the mouthbut reportsdoes not limit daily activitiesandno nosebleeds (epistaxis). For context, patient reportsworse with seasonal allergen exposure,worse around animals,worse around pollen,worse around dust,worse around molds,worse with environmental exposure, andworse when mowing grass. For risk factors, patient reportshistory of smoking,history of asthma, anddmbut reportsno current smoking or tobacco use,no chemotherapy,no hiv, andno immunodeficiency. For onset/timing, patient reportsoccurs during particular seasons of the year winter. For duration, patient reportsintermittent. For alleviating factors, patient reportsrelief with antihistamine cetirizine. For aggravating factors, patient reportsworse when allergies are active,worse with excess fatigue,worse with damp weather, andworse with cold weather. Asthma F/UReported by PatientHPIFor associated symptoms, patient reportscoughandshortness of breathbut reportsno fever,no fatigue,no irritability,normal appetite, andno changes in productivity. For severity, patient reportsable to sleep during episode,does not interfere with daily activities, anduses nebulizer/inhaler an average of 1-2 times/week lately. For onset/timing, patient reportschronic. For modifying factors, patient reportsallergies,exercise,illne ss,pets/animals, andanxiety makes it worse. Anxiety/DepressionReported by PatientHPIFor quality, patient reportssymptoms are seasonal. For context, patient reportsmajor life stressors,family problems, andtrouble at work. For associated symptoms, patient reportsanxiety with muscle tensionandshortness of breathbut reportsdenies homicidal ideations,no visual/auditory hallucinations,mood good,no crying spells, andsleeping well. For severity, patient reportsdenies suicidal ideations,able to maintain relationships, anddoes not interfere with activities of daily living. For onset/timing, patient reportsgradualandstill present. For modifying factors, patient reportscounsellingandsocial support. Back PainReported by PatientHPIFor location, patient reportspain radiating to the buttocks,pain radiating to the legs, andpain radiating to the ankle(lumbar and thoracic). For quality, patient reportssharpandtingling. For severity, patient reportsworsening,pain level 9/10,interference with sleep, andinterference with work. For aggravating factors, patient reportsmovement/positioning,twi sting,flexing back, andextending back. For associated symptoms, patient reportsnumbness of the legs/feet,tingling, andshortness of breathbut reportsno fever,no weak limbs, andno incontinence. For duration, patient reportschronic. For onset/timing, patient reportsrecurrent episode. For context, patient reportsprior back problems,used medications for back pain, andhad evaluations by back specialist. For alleviating factors, patient reportsrestandrelieved by changing position.ROS as noted in the HPI Kierra Carson MD Attn: Accounting,[address] [facility], [place], [address], [place] [facility] 04/05/2020 18:22:46
--- OUTSIDE RECORDS SUMMARY | 2024-12-15 07:35 | XMS_ITS | Clinical Summary ---
Author Organization [facility] [employer] Address [address] [place] [address] Care Team Providers Care Radiology Technologist Name Role Phone Williams Reynaga APRN-LOSS PREVENTION SUPERVISOR Primary Care Pro vider Source Comments [facility],non-owned Affiliates and Associated Physician Practices is amultiple site organization consisting of ambulatory clinics and hospital sitesin [place], [place] and [place]. This disclosure is being madepursuant to the Care Everywhere program and may not contain all information available regarding this patient. Last updated 17.[facility] [employer] Allergies Active Allergy Reactions Criticality Noted Date Comments Allopurinol Diarrhea 05/03/2022 Lisinopril Cough 06/16/2021 Nsaids Unknown 11/17/2022 Hx surgery Penicillins Swelling 02/12/2018 Medications * Be aware that medications may not be up to date on this document. Alwaysverify current medications with the patient. albuterol HFA (Proventil; Ventolin; Proair) 108 (90 Base) MCG/ACT inhaler Inhale 2 (two) puffs by mouth every 4 hours as needed 2 Active azelastine (Astelin) 0.1 % nasal spray 2 Active traZODone (Desyrel) 50 MG tablet Take 1 (one) tablet by mouth nightly as needed 3 Active ondansetron, disintegrating , (Zofran ODT) 4 MG tablet Take 1 (one) tablet by mouth every 6 hours as needed for Nausea/Vomiting Allow tablet to dissolve on the tongue 20 tablet 3 Active Additional Information Patient not taking.Reported on 09/16/2024 omeprazole (PriLOSEC) 20 MG capsule Take 1 (one) capsule by mouth once daily 30 capsule 3 Active Additional Information Patient not taking.Reported on 09/16/2024 HYDROcodone-ac etaminophen (Creighton) 10-325 MG tablet Take 1 (one) tablet by mouth every 8 hours as needed for Pain Active acetaminophen (Tylenol) 160 MG/5ML solution Take 31.25 mL by mouth every 8 hours 473 mL 3 Active irbesartan (Avapro) 150 MG tablet Take 1 (one) tablet by mouth once daily Active omeprazole (PriLOSEC) 20 MG capsuleIndicat ions:Heartburn TAKE 1 CAPSULE BY MOUTH DAILY BEFORE BREAKFAST 30 capsule 5 3 Active Additional Information Patient not taking.Reported on 09/16/2024 Mounjaro 10 MG/0.5ML injection ADMINISTER 10 MG UNDER THE SKIN 1 TIME A WEEK Active Jardiance 10 MG tablet TAKE 1 TABLET BY MOUTH 1 TIME EACH DAY IN THE MORNING Active acetaminophen (Tylenol) 160 MG/5ML solution Take 31.25 mL by mouth every 8 hours 3 Discontin ued(No Pharm No AVS) Active Problems Problem Noted Date Diagnosed Date Morbid obesity 05/15/2022 Encounters Date Type Department Care Team Description 09/16/2024 1:00 PM CDT Office Visit [facility] [address] [place] [address], [place] [id number] Bettina Nguyễn, KHAI-KOMAL Morbid obesity (HCC) (Primary Dx); Bariatric surgery status; Vitamin deficiency; Vitamin D deficiency; Vitamin B deficiency; Mineral deficiency; Arthralgia, unspecified joint from Last 3 Months Immunizations Immunization Administration Dates Next Due INFLUENZA VACCINE, QUADR. (F LUZONE; FLULAVAL; FLUARIX; AFLURIA QUADRIVALENT; 6MO+), 0.5 ML (IIV4) 02/12/2018 Family History Medical History Relation Name Comments Diabetes - Type 2 Mother Cancer - Colon Sister 1 Diabetes - Type 2 Sister 2 Relation Name Status Comments Mother Sister 1 Sister 2 Social History Tobacco Use Types Packs/Day Years Used Date Smoking Tobacco: Former Smokeless Tobacco: Never Tobacco Cessation:Counseling Given: Not Answered Overall Financial Resource Strain (CARDIA) Answe r Date Recorded How hard is it for you to pa y for the very basics like food, housing, medical care, and heating? Not hard at all 05/15/2022 [facility] [place] [facility] - Occupational Stress Questionnaire Answer Date Recorded Do you feel stress - tense, restless, nervous, or anxious, or unable to sleep at night because your mind is troubled all the time - these days? Not at all 05/15/2022 Hunger Vital Sign Answer Date Recorded Within the past 12 months, y ou worried that your food would run out before you got the money to buy more. Never true 05/15/19 23 Within the past 12 months, t he food you bought just didn't last and you didn't have money to get more. Never true 05/15/2022 PRAPARE - Transportation Answer Date Re corded In the past 12 months, has l ack of transportation kept you from medical appointments or from getting medications? No 04/20 In the past 12 months, has l ack of transportation kept you from meetings, work, or from getting things needed for daily living? No 05/15/2022 Housing Stability Vital Sign Answer Johnny e Recorded In the last 12 months, was t here a time when you were not able to pay the mortgage or rent on time? No 05/15/2022 In the last 12 months, how many places have you lived? 1 05/15/2022 In the last 12 months, was t here a time when you did not have a steady place to sleep or slept in a senior care (including now)? No 05/15/2022 Sex and Gender Information Value Date Recorded Sex Assigned at Male 04/05/2022 2:05 PM MINE BOSS Legal Sex Male 5:32 AM MINE BOSS Gender Identity Male 04/05/2022 2:05 PM MINE BOSS Sexual Orientation Straight 04/05/2022 2: 05 PM MINE BOSS Last Filed Vital Signs Vital Sign Reading Time Taken Comments Blood Pressure 116/74 09/16/2024 1:03 PM CDT Pulse 67 09/16/2024 1:03 PM CDT Temperature 36.1 C (97 F) 09/16/2024 1:03 PM CDT Respiratory Rate 18 11/17/2022 9:28 AM CDT Oxygen Saturation 97% 09/16/2024 1:03 PM CDT Inhaled Oxygen Concentration - - Weight 119.2 kg (262 lb 12.8 oz) 09/16/2024 1:03 PM CDT Height 175.3 cm (5' 9) 09/16/2024 1:03 PM CDT Body Mass Index 38.81 09/16/2024 1:03 PM CDT Plan of Treatment Upcoming Encounters Date Type Department Care Team (Late st Contact Info) Description 09/15/2025 1:30 PM CDT Office Visit [facility] [address], [address] [place] [address] Bettina Nguyễn, POURED PIPE MAKER-LOSS PREVENTION SUPERVISOR [address] [facility] [place] [id number] Health Maintenance Due Date Last Done Comments COLOGUARD (AGES 45-75) - COLON CA SCREENING 1975 CT COLONOGRAPHY - COLON CA SCREENING 1975 FIT - COLON CA SCREENING 1975 FLEX SIG - COLON CA SCREENING 1975 HIV SCREENING 12/09/1990 DTAP/TDAP/TD VACCINES (1 - Tdap) 12/09/1994 HEPATITIS B VACCINE (1 of 3 - 19+ 3-dose series) 12/09/1994 COLON MONITORING 01/14/2023 01/14/2013 COLONOSCOPY - COLON CA SCREENING 01/14/2023 01/14/2013 Colorectal Cancer Screening 01/14/2023 DEPRESSION SCREENING 03/19/2024 COVID-19 VACCINE (3 - 2024- season) 2024 06/23/2020, 05/26/2020 INFLUENZA VACCINE (#1) 2024 3, 03/04/2022, 11/26/2020, Additional history exists SCREENING FOR DIABETES 11/28/2025 3, 11/28/2022, 05/17/2022, Additional history exists ZOSTER VACCINE (1 of 2) 12/09/2025 LIPID TESTING 11/07/2026 11/07/2021, 12/13/2020 HEPATITIS C SCREENING Completed 09/09/2022 , 09/09/2022, 09/09/2022 HIB VACCINE Aged Out No longer eligi ble based on patient's age to complete this topic HPV VACCINE Aged Out No longer eligi ble based on patient's age to complete this topic MENINGOCOCCAL (Group B) VACCINE SHARED DECISION-MAKING Aged Out No longer eligible based on patient's age to complete this topic MENINGOCOCCAL GROUPS A/C/Y/W VACCINE Aged Out No longer eligible based on patient's age to complete this topic Procedures Procedure Name Priority Date/Time Associated Diagnosis Comments VITAMIN D 25-HYDROXY Routine 09/29/2024 8:56 AM CDT Morbid obesity (HCC) Bariatric surgery status Vitamin deficiency Vitamin D deficiency Vitamin B deficiency Mineral deficiency Arthralgia, unspecified joint VITAMIN B12 Routine 09/29/2024 8:56 AM CDT Morbid obesity (HCC) Bariatric surgery status Vitamin deficiency Vitamin D deficiency Vitamin B deficiency Mineral deficiency Arthralgia, unspecified joint VITAMIN B1 Routine 09/29/2024 8:56 AM CDT Morbid obesity (HCC) Bariatric surgery status Vitamin deficiency Vitamin D deficiency Vitamin B deficiency Mineral deficiency Arthralgia, unspecified joint MAGNESIUM BLOOD Routine 09/29/2024 8:55 AM CDT Morbid obesity (HCC) Bariatric surgery status Vitamin deficiency Vitamin D deficiency Vitamin B deficiency Mineral deficiency Arthralgia, unspecified joint PREALBUMIN Routine 09/29/2024 8:55 AM CDT Morbid obesity (HCC) Bariatric surgery status Vitamin deficiency Vitamin D deficiency Vitamin B deficiency Mineral deficiency Arthralgia, unspecified joint PTH INTACT Routine 09/29/2024 8:55 AM CDT Morbid obesity (HCC) Bariatric surgery status Vitamin deficiency Vitamin D deficiency Vitamin B deficiency Mineral deficiency Arthralgia, unspecified joint COPPER BLOOD Routine 09/29/2024 8:55 AM CDT Morbid obesity (HCC) Bariatric surgery status Vitamin deficiency Vitamin D deficiency Vitamin B deficiency Mineral deficiency Arthralgia, unspecified joint ZINC BLOOD Routine 09/29/2024 8:55 AM CDT Morbid obesity (HCC) Bariatric surgery status Vitamin deficiency Vitamin D deficiency Vitamin B deficiency Mineral deficiency Arthralgia, unspecified joint FOLATE RBC Routine 09/29/2024 8:55 AM CDT Morbid obesity (HCC) Bariatric surgery status Vitamin deficiency Vitamin D deficiency Vitamin B deficiency Mineral deficiency Arthralgia, unspecified joint FERRITIN Routine 09/29/2024 8:55 AM CDT Morbid obesity (HCC) Bariatric surgery status Vitamin deficiency Vitamin D deficiency Vitamin B deficiency Mineral deficiency Arthralgia, unspecified joint IRON + TIBC PANEL Routine 09/29/2024 8:5 5 AM CDT Morbid obesity (HCC) Bariatric surgery status Vitamin deficiency Vitamin D deficiency Vitamin B deficiency Mineral deficiency Arthralgia, unspecified joint HEMOGLOBIN A1C Routine 11/28/2022 12:30 PM CDT Morbid obesity Bariatric surgery status Vitamin deficiency Vitamin D deficiency Vitamin B deficiency Mineral deficiency DM (diabetes mellitus) type II, controlled, with peripheral vascular disorder from Last 3 Months or Most Recently Relevant to Health Maintenance Results * VITAMIN B1 (09/29/2024 8:56 AM CDT) Vitamin B1 Whole Blood 85.3 66.5 - 200.0 nmol/L [facility] ACCOUNT BILL Blood BLOOD SPECIMEN / Unknown 09/29/2024 8:56 AM CDT 09/29/2024 Narrative [facility] ACCOUNT BILL - 10/01/2024 9:08 PM CDT Test(s) 126760-Orn. B1, Whole Blood was developed and its performance characteristics determined by [facility]. It has not been cleared or approved by the Food and Drug Administration. Performed at: 01 - [address] [id number] Machine Operator Helper: Severiano Burnett MD, Phone: [phone] us Bettina Nguyễn POURED PIPE MAKER-LOSS PREVENTION SUPERVISOR LAB - CHEMISTRY O RDERABLES Final Result [facility] ACCOUNT BILL [address] [place] [address] * VITAMIN D 25-HYDROXY (09/29/2024 8:56 AM CDT) Vitamin D, 25 Hydroxy 38.7 30.0 - 100.0 ng/mL [facility] ACCOUNT BILL Comment: Vitamin D deficiency has been defined by the [place] of [place] and an Endocrine Society practice guideline as a level of serum 25-OH vitamin D less than 20 ng/mL (1,2). The Endocrine Society went on to further define vitamin D insufficiency as a level between 21 and 29 ng/mL (2). 1. IOM ([place] of Medicine). 2010. Dietary reference intakes for calcium and D. [place]: The National Academies Press. 2. Gabe MF, Smith SANDS, Jin AVILEZ, et al. Evaluation, treatment, and prevention of vitamin D deficiency: an Endocrine Society clinical practice guideline. JCEM. 2010; 96(7):1911-30. Blood BLOOD SPECIMEN / Unknown 09/29/2024 8:56 AM CDT 09/29/2024 Narrative [facility] ACCOUNT BILL - 09/30/2024 7:09 AM CDT Performed at: - [address] [id number] Machine Operator Helper: John Mahan PhD, Phone: [phone] Bettina Nguyễn POURED PIPE MAKER-LOSS PREVENTION SUPERVISOR LAB - CHEMISTRY O RDERABLES Final Result [facility] ACCOUNT BILL [address] [place] [address] * VITAMIN B12 (09/29/2024 8:56 AM CDT) Vitamin B12 377 232 - 1,245 pg/mL [facility] ACCOUNT BILL Blood BLOOD SPECIMEN / Unknown 09/29/2024 8:56 AM CDT 09/29/2024 Narrative [facility] ACCOUNT BILL - 09/30/2024 7:09 AM CDT Performed at: - [address] [id number] Machine Operator Helper: John Mahan PhD, Phone: [phone] us Bettina Nguyễn POURED PIPE MAKER-LOSS PREVENTION SUPERVISOR LAB - CHEMISTRY O RDERABLES Final Result Performing Organization Address [facility] Co de Phone Number [facility] ACCOUNT BILL [address] [place] [address] * ZINC BLOOD (09/29/2024 8:55 AM CDT) Zinc, Plasma or Serum 63 44 - 115 ug/dL [facility] ACCOUNT BILL Comment:Detection Limit = 5 Blood BLOOD SPECIMEN / Unknown 09/29/2024 8:55 AM CDT 09/29/2024 Narrative [facility] ACCOUNT BILL - 10/02/2024 7:09 AM CDT Test(s) [id number]-Umla, Plasma or Serum was developed and its performance characteristics determined by [facility]. It has not been cleared or approved by the Food and Drug Administration. Performed at: - [address] [id number] Machine Operator Helper: Severiano Burnett MD, Phone: [phone] us Bettina Nguyễn POURED PIPE MAKER-LOSS PREVENTION SUPERVISOR LAB - CHEMISTRY O RDERABLES Final Result Performing Organization Address [facility] de Phone Number [facility] ACCOUNT BILL [address] [place] [address] * PTH INTACT (09/29/2024 8:55 AM CDT) [facility] PTH Intact 39 15 - 65 pg/mL [facility] ACCOUNT BILL Blood BLOOD SPECIMEN / Unknown 09/29/2024 8:55 AM CDT 09/29/2024 Narrative [facility] ACCOUNT BILL - 09/30/2024 3:10 PM CDT Performed at: - [facility] [address] [place], [place] [id number] Machine Operator Helper: John Mahan PhD, Phone: [phone] us Bettina Nguyễn POURED PIPE MAKER-LOSS PREVENTION SUPERVISOR LAB - CHEMISTRY O RDERABLES Final Result Performing Organization Address [facility]/ZIP Co de Phone Number [facility] ACCOUNT BILL [address] [place] [address] * COPPER BLOOD (09/29/2024 8:55 AM CDT) Copper 95 69 - 132 ug/dL [facility] ACCOUNT BILL Comment:Detection Limit = 5 Blood BLOOD SPECIMEN / Unknown 09/29/2024 8:55 AM CDT 09/29/2024 Narrative [facility] ACCOUNT BILL - 10/02/2024 7:09 AM CDT Test(s) 277465-Xulwjf, Serum or Plasma was developed and its performance characteristics determined by [facility]. It has not been cleared or approved by the Food and Drug Administration. Performed at: - [address] [id number] Machine Operator Helper: Severiano Burnett MD, Phone: [phone] us Bettina Nguyễn POURED PIPE MAKER-LOSS PREVENTION SUPERVISOR LAB - CHEMISTRY O RDERABLES Final Result Performing Organization Address [facility] Co de Phone Number [facility] ACCOUNT BILL [address] [place] [address] * FOLATE RBC (09/29/2024 8:55 AM CDT) Pathologist [facility] Folate Hemolysate 404.0 Not Estab. ng/mL [facility] ACCOUNT BILL Hematocrit 42.5 37.5 - 51.0 % [facility] ACCOUNT BILL Folate RBC 951 >498 ng/mL [facility] ACCOUNT BILL Blood BLOOD SPECIMEN / Unknown 09/29/2024 8:55 AM CDT 09/29/2024 Narrative [facility] ACCOUNT BILL - 09/30/2024 3:10 PM CDT Performed at: - [facility] [id number] [place], [place] [id number] Machine Operator Helper: John Mahan PhD, Phone: [phone] us Bettina Nguyễn POURED PIPE MAKER-LOSS PREVENTION SUPERVISOR LAB - CHEMISTRY O RDERABLES Final Result Performing Organization Address City/[facility]/ZIP Co de Phone Number [facility] ACCOUNT BILL [address] [place] [address] * PREALBUMIN (09/29/2024 8:55 AM CDT) Prealbumin 23 12 - 34 mg/dL [facility] ACCOUNT BILL Blood BLOOD SPECIMEN / Unknown 09/29/2024 8:55 AM CDT 09/29/2024 Narrative [facility] ACCOUNT BILL - 09/30/2024 6:09 AM CDT Performed at: 01 - [facility] [address] [id number] Machine Operator Helper: John Mahan PhD, Phone: [phone] us Bettina Nguyễn POURED PIPE MAKER-LOSS PREVENTION SUPERVISOR LAB - CHEMISTRY O RDERABLES Final Result Performing Organization Address [facility]/ZIP Co de Phone Number [facility] ACCOUNT BILL [address] [place] [address] * MAGNESIUM BLOOD (09/29/2024 8:55 AM CDT) Magnesium 2.0 1.6 - 2.3 mg/dL [facility] ACCOUNT BILL Blood BLOOD SPECIMEN / Unknown 09/29/2024 8:55 AM CDT 09/29/2024 Narrative [facility] ACCOUNT BILL - 09/30/2024 7:09 AM CDT Performed at: - [facility] [address] [id number] Machine Operator Helper: John Mahan PhD, Phone: [phone] us Bettina Nguyễn POURED PIPE MAKER-LOSS PREVENTION SUPERVISOR LAB - CHEMISTRY O RDERABLES Final Result [facility] ACCOUNT BILL [address] [place] [address] * IRON + TIBC PANEL (09/29/2024 8:55 AM CDT) TIBC 286 250 - 450 ug/dL [facility] ACCOUNT BILL UIBC 210 111 - 343 ug/dL [facility] ACCOUNT BILL Iron 76 38 - 169 ug/dL [facility] ACCOUNT BILL Iron Saturation 27 15 - 55 % [facility] ACCOUNT BILL Blood BLOOD SPECIMEN / Unknown 09/29/2024 8:55 AM CDT 09/29/2024 Narrative [facility] ACCOUNT BILL - 09/30/2024 7:09 AM CDT Performed at: 01 - [address] [id number] Machine Operator Helper: John Mahan PhD, Phone: [phone] us Bettina Nguyễn POURED PIPE MAKER-LOSS PREVENTION SUPERVISOR LAB - CHEMISTRY O RDERABLES Final Result [facility] ACCOUNT BILL [address] [place] [address] * FERRITIN (09/29/2024 8:55 AM CDT) Ferritin 165 30 - 400 ng/mL [facility] ACCOUNT BILL Blood BLOOD SPECIMEN / Unknown 09/29/2024 8:55 AM CDT 09/29/2024 Narrative [facility] ACCOUNT BILL - 09/30/2024 7:09 AM CDT Performed at: 01 - [address] [id number] Machine Operator Helper: John Mahan PhD, Phone: [phone] us Bettina Nguyễn POURED PIPE MAKER-LOSS PREVENTION SUPERVISOR LAB - CHEMISTRY O RDERABLES Final Result Performing Organization Address City/[facility]/ZIP Co de Phone Number [facility] ACCOUNT BILL [address] [place] [address] * (ABNORMAL) HEMOGLOBIN A1C (HgbA1C) (11/28/2022 12:30 PM CDT) Hemoglobin A1c 6.1(H) 4.8 - 5.6 % [facility] ACCOUNT BILL Comment: . Prediabetes: 5.7 - 6.4 Diabetes: >6.4 Glycemic control for adults with diabetes: <7.0 Blood BLOOD SPECIMEN / Unknown 11/28/2022 12:30 PM CDT 11/28/2022 Narrative Resulting Agency Comment Lab Testing performed at: [facility] [address] [facility] [id number] Bettina Ruiz Delma POURED PIPE MAKER-LOSS PREVENTION SUPERVISOR LAB - CHEMISTRY O RDERABLES Final Result [facility] ACCOUNT BILL [address] [place] [address] from Last 3 Months or Most Recently Relevant to Health Maintenance Insurance * Guarantor: Valentin Osorio Account Type Relation to Patient Date of Phone Billing Address Personal/Family Self 1975 [address] [place] [address] [facility] Advance Directives * Full Code (Latest Code Status on File) Date Activated Date Inactivated Comments 05/15/2022 10:02 AM 05/17/2022 12:51 PM Care Teams Radiology Technologist Relationship Specialty Start Date End Date Williams Reynaga, POURED PIPE MAKER-LOSS PREVENTION SUPERVISOR [address] [place] [id number] PCP - General Nurse Practitioner 05/03/22
--- OUTSIDE RECORDS SUMMARY | 2024-12-15 07:35 | XMS_ITS | Clinical Summary ---
Author Organization [facility] Facility Address [address] [place] [address] Care Team Providers Care Prosthetic Dentist Name Role Phone Williams Reynaga APN Primary Care Provider [phone] Medications tiZANidine (ZANAFLEX) 4 MG tablet tizanidine 4 mg tablet TAKE 1 TO 2 TABLETS BY MOUTH THREE TIMES DAILY NEEDED Active naproxen (NAPROSYN) 500 MG tablet Take 1 tablet by mouth if needed Active traMADol (ULTRAM) 50 MG tablet Take 50 mg by mouth every 6 (six) hours if needed Active HYDROcodone-natasha taminophen (VICODIN) 10-300 MG per tablet Take 1 tablet by mouth every 6 (six) hours if needed Active ergocalciferol 1.25 MG (47839 UT) capsule Take 1 capsule (50,000 Units total) by mouth 1 (one) time per week 12 capsule 1 2 Active Empagliflozin (Jardiance) 10 MG tablet Take 10 mg by mouth 1 (one) time each day in the morning 30 tablet 5 4 Active irbesartan (AVAPRO) 150 MG tablet TAKE 1 TABLET(150 MG) BY MOUTH 1 TIME EACH DAY 90 tablet 1 5 Active Encounters Date Type Department Care Team Description 09/17/2024 Refill [facility], [address] [address] David Bridges DO from Last 3 Months Social History Tobacco Use Types Packs/Day Years Used Date Smoking Tobacco: Former Cigarettes Q uit: 07/12/2013 Alcohol Use Standard Drinks/Week Comments No 0 (1 standard drink = 0.6 oz pur e alcohol) Sex and Gender Information Value Date Recorded Sex Assigned at Not on file Legal Sex Male 2:49 PM EDT Gender Identity Not on file Sexual Orientation Not on file Last Filed Vital Signs Vital Sign Reading Time Taken Comments Blood Pressure 120/70 01/22/2024 12:36 PM DEC[facility] Pulse 72 01/22/2024 12:36 PM [facility] Temperature 36.1 C (97 F) 01/22/2024 12:36 PM DEC[facility] Respiratory Rate 18 01/22/2024 12:36 PM [facility] Oxygen Saturation 99% 01/22/2024 12:36 PM [facility] Inhaled Oxygen Concentration - - Weight 130 kg (287 lb) 01/22/2024 12:36 PM [facility] Height 172.7 cm (5' 8) 05/10/2022 1:59 PM [facility] Body Mass Index 43.64 05/10/2022 1:59 PM [facility] Plan of Treatment Upcoming Encounters Date Type Department Care Team (Late st Contact Info) Description 01/27/2025 12:30 PM DECKHAND Office Visit [facility], [facility] [address] [facility] [address] [place] [address] David Bridges, [address] [facility] [address] [place] [address] Health Maintenance Due Date Last Done Comments Hepatitis B Vaccine (1 of 3 - 19+ 3-dose series) 12/09/1994 Pneumococcal Vaccine: Peds ( 0 to 5 Years) and At-Risk Patients (6 to 49 Years) (2 of 2 - PCV) 05/30/2014 05/30/2013 Diabetes: Ophthalmology Exam 08/12/2020 Diabetes: Pedal Pulse Checked 08/12/2020 Diabetes: Sensory Foot Exam 08/12/2020 Diabetes: Visual Foot Exam 08/12/2020 Diabetes: Hemoglobin A1C 08/29/2024 025, 01/21/2024, 01/14/2024, Additional history exists Influenza Vaccine (#1) 2024 3, 03/04/2022, 11/26/2020, Additional history exists Colorectal Cancer Screening: Annual FOBT 12/09/2024 Colorectal Cancer Screening: Colonoscopy 12/09/2024 01/14/2013 Colorectal Cancer Screening: Sigmoidoscopy 12/09/2024 Procedures Procedure Name Priority Date/Time Associated Diagnosis Comments HEMOGLOBIN A1C Routine 01/21/2024 8:23 AM DEC[facility]AND from Last 3 Months or Most Recently Relevant to Health Maintenance Results * Hemoglobin A1c (01/21/2024 8:23 AM DECKHAND) Hemoglobin A1C 5.1 <5.7 % of total Hgb See order comments Comment: For the purpose of screening for the presence of diabetes: <5.7% Consistent with the absence of diabetes 5.7-6.4% Consistent with increased risk for diabetes (prediabetes) > or =6.5% Consistent with diabetes This assay result is consistent with a decreased risk of diabetes. Currently, no consensus exists regarding use of hemoglobin A1c for diagnosis of diabetes in children. According to [place] Diabetes Association (ADA) guidelines, hemoglobin A1c <7.0% represents optimal control in non- diabetic patients. Different metrics may apply to specific patient populations. Standards of Medical Care in Diabetes(ADA). 01/21/2024 8:23 AM DEC[facility] 01/21/2024 8:26 AM [facility] Narrative [facility] - 01/22/2024 4:01 AM [facility] INSURANCE ON PHONE FASTING:NO FASTING: NO Resulting Agency Comment Performing Organization Information: Site ID: Name: [facility] Address: [address] [place] [address] Director: Santiago Locke us David Bridges DO LAB BLOOD ORDERABLES Final R esult [facility] See order comments [place] [address] from Last 3 Months or Most Recently Relevant to Health Maintenance Insurance [facility] Care Teams Prosthetic Dentist Relationship Specialty Start Date End Date Williams Reynaga APN [address] [address] PCP - General Nurse Practitioner 12/30/20
--- OUTSIDE RECORDS SUMMARY | 2024-12-15 07:35 | XMS_ITS | Encounter Summary ---
Author Organization [facility] Address [address] [place] [address] Phone Care Team Providers Care Overlock Hemmer Name Role Phone Williams Reynaga APRN, CNP Primary Care Pr ovider Scottie Myles MD Unavailable Oliver Vale III, MD, Courtney Unavailable [phone] Reason for Visit * Reason Comments Medication Refill Encounter Details Date Type Department Care Team (Late st Contact Info) Description 11/17/2021 Refill [facility] [address] [place] [phone] Williams Reynaga APRN, KOMAL [address] [address] Medication Refill Social History Tobacco Use Types [...] on file Legal Sex Male 2:13 PM COMIC BOOK ARTIST Gender Identity Not on file Sexual Orientation Not on file COVID-19 Exposure Response Date Recorded In the last 10 days, have yo u been in contact with someone who was confirmed or suspected to have Coronavirus/COVID-19? No / Unsure 11/07/2021 8:45 AM CDT documented as of this encounter Miscellaneous Notes * Telephone Encounter - Nola Rodriguez RN - 11/17/2021 11:06 AM CDT Medication failed the protocol, provider to review and approve the medication order if appropriate. Requested Prescriptions Pending Prescriptions Disp Refills ibuprofen (MOTRIN) 800 MG Tablet [Pharmacy Med Name: IBUPROFEN 800MG TABLETS] 90 Tablet 1 Sig: TAKE 1 TABLET BY MOUTH EVERY 8 HOURS NEEDED FOR MODERATE TO SEVERE PAIN NSAIDs Protocol Passed - 11/17/2021 9:49 AM Passed - Normal serum creatinine in past 12 months CREATININE, BLOOD Date Value Ref Range Status 11/07/2021 0.90 0.80 - 1.30 mg/dL Final Passed - Visit with relevant provider in past 12 months or upcoming 90 days Recent Visits Date Type Provider Dept 11/07/21 Office Visit Williams Reynaga APRN, KOMAL [facility] 09/27/21 Office Visit Williams Reynaga APRN, KOMAL [facility] 09/12/21 Procedure Visit [facility] 09/12/21 Office Visit Williams Reynaga APRN, KOMAL [facility] 09/01/21 Office Visit Williams Reynaga APRN, KOMAL [facility] 07/04/21 Office Visit Williams Reynaga APRN, DRY CLIPPER TENDER [facility] 05/16/21 Office Visit Williams Reynaga APRN, DRY CLIPPER TENDER [facility] 04/06/21 Office Visit Williams Reynaga APRN, KOMAL [facility] 11/26/20 Office Visit Williams Reynaga APRN, DRY CLIPPER TENDER [facility] Showing recent visits within past 365 days and meeting all other requirements Future Appointments No visits were found meeting these conditions. Showing future appointments within next 90 days and meeting all other requirements Passed - No matching NSAID med order in past 45 days No matching medication orders between 10/03/2021 11:06 AM and 11/17/2021 11:06 AM Passed - AST less than 55 [...] st Contact Info) Description 03/30/2025 8:30 AM COMIC BOOK ARTIST Office Visit [facility] [address] [place] [address] Williams Reynaga APRN, DRY CLIPPER TENDER #[address] [address] documented as of this encounter Visit Diagnoses Diagnosis Chronic right-sided low back pain with right-sided sciatica DDD (degenerative disc disease), lumbar Degeneration of lumbar or lumbosacral intervertebral disc documented in this encounter Additional Health Concerns Infection Onset Date Last Indicated Resolved Time COVID - 19 02/09/2023 02/09/2023 02/19/2023 12:1 6 AM COMIC BOOK ARTIST documented as of this encounter Care Teams Overlock Hemmer Relationship Specialty Start Date End Date Williams Reynaga APRN, DRY CLIPPER TENDER #[address] [address] PCP - General Advanced Practice Nurse 11/26/20 Scottie Myles MD #[address] [address] Consulting Physician Cardiovascular Disease - Cardiology 04/27/22 05/07/24 Alicia Vale III, MD #2 [place] [address] Consulting Physician Urology 05/08/22 documented as of this encounter
--- OUTSIDE RECORDS SUMMARY | 2024-12-15 07:36 | XMS_ITS | Clinical Summary ---
Author Organization [facility] Address [address] [place] [address] Phone Care Team Providers Care Mutual Fund Sales Agent Name Role Phone Williams Reynaga APRN, POUCH MAKER Primary Care Pr ovider Akanksha MURPHY MD, Alicia Unavailable [phone] Allergies Active Allergy Reactions Criticality Noted Date Comments Lisinopril Unknown 11/26/2020 Nsaids Other (see Comments) 02/09/2023 Penicillins Swelling 02/12/2018 Medications Blood Pressure Kit Use to check blood pressure daily. 1 Each 06/14/19 23 Active azelastine (ASTELIN) 0.1 % Solution 2 Sprays by Nasal route 2 times daily. Use in each nostril as directed 30 mL 5 10/29/19 24 Active Jardiance 10 MG Tablet Take 10 mg by mouth. 01/22/20 24 Active tiZANidine (ZANAFLEX) 2 MG Tablet TAKE 1 TO 2 TABLETS BY MOUTH AT BEDTIME NEEDED FOR PAIN 90 Tablet 2 02/19/20 24 Active albuterol 108 (90 Base) MCG/ACT Aerosol Solution take 2 Puffs by inhalation every 4 hours as needed for Wheezing. 18 g 5 09/19/19 25 Active Tirzepatide (Mounjaro) 10 MG/0.5ML Solution Auto-injectorIndi cations:Type 2 diabetes mellitus without complication, without long-term current use of insulin 10 mg by Subcutaneous route once a week. 2 mL 5 10/29/19 25 Active HYDROcodone-aceta minophen (NORCO) 7.5-325 MG TabletIndications :DDD (degenerative disc disease), lumbar Take 1 Tablet by mouth every 8 hours as needed for Moderate or more severe pain. 90 Tablet 11/28/19 25 Active amphetamine-dextr oamphetamine (Adderall) 15 MG TabletIndications :Attention deficit hyperactivity disorder (ADHD), predominantly inattentive type Take 1 Tablet by mouth 2 times daily. 60 Tablet 12/11/19 25 Active irbesartan (AVAPRO) 300 MG TabletIndications :Microalbuminuria due to type 2 diabetes mellitus Take 1 Tablet by mouth daily. 90 Tablet 3 12/12/19 25 Active irbesartan (AVAPRO) 300 MG TabletIndications :Microalbuminuria due to type 2 diabetes mellitus Take 1 Tablet by mouth daily. 90 Tablet 3 05/31/19 25 025 Discontin ued(Reord er) amphetamine-dextr oamphetamine (Adderall) 15 MG TabletIndications :Attention deficit hyperactivity disorder (ADHD), predominantly inattentive type Take 1 Tablet by mouth 2 times daily. 60 Tablet 10/29/19 25 025 Discontin ued(Reord er) HYDROcodone-aceta minophen (NORCO) 7.5-325 MG TabletIndications :DDD (degenerative disc disease), lumbar Take 1 Tablet by mouth every 8 hours as needed for Moderate or more severe pain. 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 07/21/2024 Right sided sciatica 07/02/2023 Right ankle swelling 07/02/2023 Acquired foot deformity, left 07/02/2023 Sleep apnea 05/16/2021 Obesity 05/16/2021 Vitamin D deficiency 12/13/2020 Hypertension Diabetes mellitus DDD (degenerative disc disease), lumbar OA (osteoarthritis) of knee Chronic pain Encounters Date Type Department Care Team Description 2024 MyChart RX Renewal [facility] [address] [place] [address] Williams Reynaga APRN, CNP Medication Renewal Reviewed 12/09/2024 MyChart RX Renewal [facility] [address] [place] [address] Williams Reynaga APRN, CNP Medication Renewal Reviewed 11/25/2024 8:30 AM CDT Office Visit [facility] [address] [place] [address] Williams Reynaga APRN, KOMAL Attention deficit hyperactivity disorder (ADHD), predominantly inattentive type (Primary Dx); Primary hypertension; Encounter for immunization Discharge Disposition: Discharged to home or Selfcare 11/25/2024 Travel 11/25/2024 MyChart RX Renewal [facility] [address] [place] [address] Williams Reynaga APRN, CNP Medication Renewal Declined 10/28/2024 8:45 AM CDT Office Visit [facility] [address] [place] [address] Williams Reynaga APRN, KOMAL Primary hypertension (Primary Dx); Type 2 diabetes mellitus without complication, without long-term current use of insulin; Attention deficit hyperactivity disorder (ADHD), predominantly inattentive type; Bilateral wrist pain; DDD (degenerative disc disease), lumbar Discharge Disposition: Discharged to home or Selfcare 10/28/2024 Travel 10/06/2024 Telephone [facility] [address] [place] [address] Williams Reynaga APRN, CNP Prior Authorization 10/03/2024 Results Follow-Up [facility] [address] [place] [address] Williams Reynaga APRN, KOMAL URINE DRUG SCREEN, EKG 12 LEAD 10/01/2024 10:29 AM CDT - 10/01/2024 11:59 PM CDT Hospital [facility] [address] [place] [address] Williams Reynaga APRN, KOMAL Discharge Disposition: Discharged to home or Selfcare 09/29/2024 10:00 AM CDT Office Visit [facility] [address] [place] [address] Williams Reynaga APRN, KOMAL Type 2 diabetes mellitus without complication, without long-term current use of insulin (Primary Dx); Chronic pain syndrome; Attention deficit hyperactivity disorder (ADHD), predominantly inattentive type; Palpitations; Therapeutic drug monitoring; Screening for prostate cancer Discharge Disposition: Discharged to home or Selfcare 09/29/2024 Travel 09/21/2024 MyChart RX Renewal [facility] [address] [place] [address] Williams Reynaga APRN, KOMAL Medication Renewal Declined 09/18/2024 Refill [facility] [address] [place] [address] Wliliams Reynaga APRN, KOMAL Medication Refill from Last 3 Months Immunizations Immunization Administration Dates Next Due Covid-19, Mrna, Lnp-s, Pf, 3 0 Mcg/0.3 Ml Dose (Pfizer) 06/23/2020,05/26/2020 Influenza Vaccine 01/05/2011,02/21/2010 Influenza Vaccine, Quadrivalent, PF 12/18,03/04/2022,11/26/2020,02/12 Influenza, Injectable, Quadrivalent 03/08/2020,1 Influenza,Split Virus,Trivalent,Injectable,PF 11/25/2024 Pneumococcal Vaccine Adult - 23 Valent 4 Pneumococcal conjugate PCV20 , polysaccharide [id number] conjugate, adjuvant, PF 09/25/2023 TDAP Vaccine 02/21/2010 Family History Medical History Relation Name Comments Heart Attack Brother 1 Sea Arthritis Brother 2 [place] Diabetes Brother 2 [place] Heart Attack Father Gum [place] fane Arthritis Half-Brother 1 Atif No Known Problems Half-Sister 1 Lawada Aneurysm Half-Sister 2 Aisha Arthritis Half-Sister 2 Aisha No Known Problems Half-Sister 3 Lashawn No Known Problems Half-Sister 4 Zaritha No Known Problems Half-Sister 5 Gwynell No Known Problems Half-Sister 6 Rozilyn Colon Cancer Half-Sister 7 Jeanie 50s No Known Problems Maternal Grandfather No Known Problems Maternal Grandmother Colon Polyps Mother Luz fane Diabetes Mother Luz fane Heart Attack Mother Luz fane Lung Cancer Mother Luz fane No Known Problems Paternal Grandfather No Known Problems Paternal Grandmother Arthritis Sister Fiona Diabetes Sister Fiona Seizures Neg Hx Relation Name Status Comments Brother 1 Sea Brother 2 [place] Alive Father Trell jo Half-Brother 1 Atif Alive Same mother Half-Brother 2 Delfino Same mother Half-Sister 1 Lawada Alive Same mother Half-Sister 2 Aisha Alive Same mother Half-Sister 3 Lashawn Alive Same mother Half-Sister 4 Zaritha Alive Same mother Half-Sister 5 Gwynell Alive Same mother Half-Sister 6 Rozilyn Alive Same mother Half-Sister 7 Jeanie Alive Same mother Maternal Grandfather Maternal Grandmother Mother Luz fane Paternal Grandfather Paternal Grandmother Sister Fiona Alive Social History Tobacco Use Types Packs/Day Years Used Date Smoking Tobacco: Former Cigarettes 0.5 11 0 07/05/1988 - 07/06/1999 Smokeless Tobacco: Never Tobacco Cessation:Counseling Given: No Alcohol Use Standard Drinks/Week Comments Not Currently 0 (1 standard drink = 0.6 oz pur e alcohol) [facility] Utilities Answer Date Recorded In the past 12 months has e electric, gas, oil, or water company threatened to shut off services in your home? No 09/25/2023 Social Connection and Isolation Panel Answer Date Recorded Frequency of Communication w ith Friends and Family Not on file 09/25/2023 How often do you get togethe r with friends or relatives? More than three times a week 09/25/2023 How often do you attend [facility] or pentecostal services? More than 4 times per year 09/25/2023 Do you belong to any clubs o r organizations such as baptist groups, unions, fraternal or athletic groups, or school groups? Yes 09/25/2023 How often do you attend meet ings of the clubs or organizations you belong to? 1 to 4 times per year 09/25/2023 Marital Status Not on file 09/25/2023 AUDIT-C Answer Date Recorded Q1: How often do you have a drink containing alcohol? Never 09/25/2023 Q2: How many drinks containi ng alcohol do you have on a typical day when you are drinking? Patient does not drink Q3: How often do you have si x or more drinks on one occasion? Never 09/25/2023 Overall Financial Resource Strain (CARDIA) Answe r Date Recorded How hard is it for you to pa y for the very basics like food, housing, medical care, and heating? Not hard at all 09/25/2023 PHQ-2 Answer Date Recorded Total Score - Questions 1-9 0 05/17 [facility] - Occupational Stress Questionnaire Answer Date Recorded Do you feel stress - tense, restless, nervous, or anxious, or unable to sleep at night because your mind is troubled all the time - these days? Not at all 09/25/2023 Exercise Vital Sign Answer Date Recorde d On average, how many days pe r week do you engage in moderate to strenuous exercise (like a brisk walk)? 4 days 06/11/2024 On average, how many minutes do you engage in exercise at this level? 30 min 06/11/2024 Hunger Vital Sign Answer Date Recorded Within the past 12 months, y ou worried that your food would run out before you got the money to buy more. Never true 09/25/19 24 Within the past 12 months, t he food you bought just didn't last and you didn't have money to get more. Never true 09/25/2023 PRAPARE - Transportation Answer Date Re corded In the past 12 months, has l ack of transportation kept you from medical appointments or from getting medications? No 11/2023 In the past 12 months, has l ack of transportation kept you from meetings, work, or from getting things needed for daily living? No 09/25/2023 Housing Stability Vital Sign Answer Johnny e Recorded In the last 12 months, was t here a time when you were not able to pay the mortgage or rent on time? No 07/01/2023 Number of Places Lived in the Last Year Not on f ile 07/01/2023 In the last 12 months, was t here a time when you did not have a steady place to sleep or slept in a snf (including now)? No 07/01/2023 Education Answer Date Recorded What is the highest level of school you have completed or the highest degree you have received? Associate degree: occupational, technical, or vocational program 05/13/2021 Sexually Active Control Partners Comments Not Currently None Female Sex and Gender Information Value Date Recorded Sex Assigned at Not on file Legal Sex Male 2:13 PM LENS EDGE GRINDER MACHINE Gender Identity Not on file Sexual Orientation Not on file Last Filed Vital Signs Vital Sign Reading Time Taken Comments Blood Pressure 116/72 11/25/2024 8:57 AM CDT Pulse 78 11/25/2024 8:29 AM CDT Temperature 36.8 C (98.2 F) 11/25/2024 8:29 AM CDT Respiratory Rate 16 11/25/2024 8:29 AM CDT Oxygen Saturation 97% 11/25/2024 8:29 AM CDT Inhaled Oxygen Concentration - - Weight 114.3 kg (252 lb) 11/25/2024 8:29 AM CDT Height 172.7 cm (5' 8) 11/25/2024 8:29 AM CDT Body Mass Index 38.32 11/25/2024 8:29 AM CDT Plan of Treatment Upcoming Encounters Date Type Department Care Team (Late st Contact Info) Description 03/30/2025 8:30 AM LENS EDGE GRINDER MACHINE [facility] Visit [facility] [address] [place] [address] Williams Reynaga, AGRICULTURAL SERVICES DIRECTOR, POUCH MAKER [address] [address] Health Maintenance Due Date Last Done Comments Diabetes: Foot Exam 1975 Hepatitis B Immunization (1 of 3 - 19+ 3-dose series) 12/09/1994 Td Immunization Every 10 Years (Adults With 1 Tdap) 02/22/2020 02/21/2010 Cologuard 12/09/2020 Immunochemical Fecal Occult Blood 12/09/2020 Diabetes: Eye Exam 09/12/2022 09/12/2021 SARS-COV-2 Immunization ( season) 2024 03/04/2022, 04/17/2021, 06/23/2020, Additional history exists Diabetes: Hemoglobin A1c 04/01/2025 025, 05/29/2024, 01/21/2024, Additional history exists Diabetes: Nephropathy Screening 05/29/2025 05/29/2024, 05/29/2024, 01/14/2024, Additional history exists Colonoscopy 07/18/2026 07/18/2021, 01/14/2013 Colorectal Cancer Screening 07/18/2026 Respiratory Syncytial Virus (RSV) Immunization (Adult) (1 - 1-dose 75+ series) 12/09/2050 DTaP/Tdap/Td Immunization Discontinued 02/21/2010 Hepatitis C Virus (HCV) Screening Completed 09/09/2022 Pneumococcal Immunization Combined Completed 09/25/2023, 05/30/2013 Influenza Immunization Completed , 01/08/2023, 03/04/2022, Additional history exists Human Papillomavirus (HPV) Immunization Aged Out No longer eligible based on patient's age to complete this topic Meningococcal Immunization (ACWY) Aged Out No longer eligible based on patient's age to complete this topic Rotavirus Immunization Aged Out No lo nger eligible based on patient's age to complete this topic Procedures Procedure Name Priority Date/Time Associated Diagnosis Comments EKG 12 LEAD Routine 10/01/2024 10:29 AM CDT Palpitations POCT GLYCOSYLATED HEMOGLOBIN Routine 09/29/2024 10:02 AM CDT Type 2 diabetes mellitus without complication, without long-term current use of insulin URINE DRUG SCREEN Routine 09/29/2024 Chronic pain syndrome Therapeutic drug monitoring CMP (COMPREHENSIVE METABOLIC PANEL) Routine 05/29/2024 9:42 AM CDT Type 2 diabetes mellitus without complication, without long-term current use of insulin (HCC) DIABETIC BILATERAL RETINAL IMAGING WITH COMPUTERIZED INTERPRETATION Routine 09/12/2021 10:08 AM CDT Type 2 diabetes mellitus with microalbuminuria, without long-term current use of insulin (HCC) from Last 3 Months or Most Recently Relevant to Health Maintenance Results * EKG 12 LEAD (10/01/2024 10:29 AM CDT) Ventricular Rate 75 BPM EXTERNAL EKG Atrial Rate 75 BPM EXTERNAL EKG P-R Interval 158 ms EXTERNAL EKG QRS Duration 80 ms EXTERNAL EKG Q-T Duration 370 ms EXTERNAL EKG QTC CALCULATION 413 ms EXTERNAL EKG P Maynard 50 degrees EXTERNAL EKG R Maynard 16 degrees EXTERNAL EKG T Maynard 24 degrees EXTERNAL EKG 10/01/2024 10:2 9 AM CDT Impressions EXTERNAL EKG - 10/03/2024 10:00 AM CDT Normal sinus rhythm Normal ECG When compared with ECG of 26-SEP-2023 14:07, No significant change was found Confirmed by Tonny Lin ([id number]) on 10/03/2024 10:00:39 AM Narrative Procedure Note Tonny Lin MD PhD - 10/03/2024 IMPRESSION: Normal sinus rhythm Normal ECG When compared with ECG of 26-SEP-2023 14:07, No significant change was found Confirmed by Tonny Lin ([id number]) on 10/03/2024 10:00:39 AM Williams Reynaga APRN, CNP IMG ECG ORDERABL ES Final Result EXTERNAL EKG * POCT GLYCOSYLATED HEMOGLOBIN (09/29/2024 10:02 AM CDT) HGB-A1C 4.6 4 - 6 % Blood 09/29/2024 10:0 2 AM CDT Williams Reynaga APRN, CNP POINT OF CARE TE STING (MANUAL) Final Result * URINE DRUG SCREEN (09/29/2024) Urine 09/29/2024 Williams Reynaga APRN, KOMAL URINE ORDERABLES Final Result * (ABNORMAL) CMP (COMPREHENSIVE METABOLIC PANEL) (05/29/2024 9:42 AM CDT) SODIUM 141 136 - 145 mmol/L 05/29/2024 10:55 AM CDT [facility] POTASSIUM 3.9 3.5 - 5.1 mmol/L 05/29/2024 10:55 AM CDT [facility] CHLORIDE 107 98 - 107 mmol/L 05/29/2024 10:55 AM CDT [facility] CO2, VENOUS 26 22 - 30 mmol/L 05/29/2024 10:55 AM CDT [facility] ANION GAP 11.9 <18.0 mmol/L 05/29/2024 10:55 AM CDT [facility] GLUCOSE 98 70 - 99 mg/dL 05/29/2024 10:55 AM CDT [facility] BUN 9 9 - 21 mg/dL 05/29/2024 10:55 AM CDT [facility] CREATININE, BLOOD 0.86 0.70 - 1.30 mg/dL 05/29/2024 10:55 AM CDT [facility] BUN/CREATININE RATIO 10(L) 12 - 20 ratio 05/29/2024 10:55 AM CDT [facility] TOTAL PROTEIN 7.6 6.0 - 8.0 g/dL 05/29/2024 10:55 AM CDT [facility] ALBUMIN 4.2 3.5 - 5.0 g/dL 05/29/2024 10:55 AM CDT [facility] A/G RATIO 1.2 1.0 - 2.2 05/29/2024 10:55 AM CDT [facility] CALCIUM 9.9 8.7 - 10.5 mg/dL 05/29/2024 10:55 AM CDT [facility] T BILI 1.2 0.2 - 1.2 mg/dL 05/29/2024 10:55 AM CDT [facility] SGOT (AST) 23 <43 U/L 05/29/2024 10:55 AM CDT [facility] SGPT (ALT) 55 <56 U/L 05/29/2024 10:55 AM CDT [facility] ALKALINE PHOSPHATASE 70 40 - 150 U/L 05/29/2024 10:55 AM CDT [facility] IS THE PATIENT REQUIRED TO BE FASTING? No 05/29/2024 10:55 AM CDT [facility] GFR, ESTIMATED >60 >=60 05/29/2024 10:55 AM CDT [facility] Comment: Creatinine Clearance is the preferred criteria for selecting drug dose adjustments in renally impaired patients. The GFR is provided as additional pertinent clinical information. GFR is reported in mL/min/1.73 sq m. Calculation based on the Chronic Kidney Disease Epidemiology Collaboration (CKD- EPI) equation refit without adjustment for race. GFR, EST. >60 >=60 025 10:55 AM CDT [facility] GFR, EST. NONAFRICAN >60 >=60 05/29/2024 10:55 AM CDT [facility] Blood Venipuncture / Unknown 05/29/2024 9:42 AM CDT 05/29/2024 10:24 AM CDT us Williams Reynaga AGRICULTURAL SERVICES DIRECTOR, POUCH MAKER CHEMISTRY ORDERA BLES Final Result [facility] [address] [place] [address] * (ABNORMAL) DIABETIC BILATERAL RETINAL IMAGING WITH COMPUTERIZED INTERPRETATION (09/12/2021 10:08 AMCDT) DIABETIC BILATERAL DIGITAL RETINAL IMAGING Exam quality insufficien t(A) [facility]ST[facility] Comment: Next Steps: Refer to automotive service professional IDx Submission ID: [id number] Results were produced by a system that provides an artificial intelligence (AI) interpretation A positive result indicates a high risk of diabetic retinopathy with a severity of ETDRS level 35 or higher and/or macular edema. IDx-DR diabetic retinopathy exam does not replace a comprehensive eye exam. Other 09/12/2021 10:0 8 AM CDT us Williams Reynaga APRN, POUCH MAKER OUTPT PROCEDURE ORDERABLES Final Result EXTERNAL EKG DIGITAL DIAGNOSTICS from Last 3 Months or Most Recently Relevant to Health Maintenance Insurance [facility] Care Teams Mutual Fund Sales Agent Relationship Specialty Start Date End Date Williams Reynaga APRN, KOMAL [address] [address] PCP - General Advanced Practice Nurse 11/26/20 Alicia Vale III, MD [address] [place] [address] Consulting Physician Urology 05/08/22
--- OUTSIDE RECORDS SUMMARY | 2024-12-15 07:36 | XMS_ITS | Encounter Summary ---
Author Organization [facility] [facility] , [facility] Address [address] [place] [address] Phone Care Team Providers Care Fisher Reef Net Name Role Phone RonnellWilliams mcginnis Gary SÁNCHEZ Primary Care Provider [phone] Reason for Visit * Reason Comments Med Refill Encounter Details Date Type Department Care Team (Late st Contact Info) Description 09/07/2020 Refill [facility], [address] [place] [address] David Bridges DO [address] [facility] [address] [place] [address] Social History Tobacco Use Types Packs/Day Years [...] as of this encounter Plan of Treatment Upcoming Encounters Date Type Department Care Team (Late Contact Info) Description 01/27/2025 12:30 PM BUSINESS DEVELOPMENT CONSULTANT Office Visit [facility], [facility] [address] [facility] [address] [place] [address] David Bridges DO [address] [facility] [address] [place] [address] documented as of this encounter Visit Diagnoses Not on filedocumented in this encounter Care Teams Fisher Reef Net Relationship Specialty Start Date End Date Williams Reynaga APN [address] [place] [id number] PCP - General Nurse Practitioner 12/30/20 documented as of this encounter
--- OUTSIDE RECORDS SUMMARY | 2024-12-15 07:36 | XMS_ITS | Encounter Summary ---
Author Organization [facility] Address [address] [place] [address] Phone Care Team Providers Care Pet Nutrition Specialist Name Role Phone Williams Reynaga APRN, CNP Primary Care Pr ovider Scottie Myles MD Unavailable Oliver Vale III, MD, Courtney Unavailable [phone] Reason for Visit * Reason Comments Medication Refill Encounter Details Date Type Department Care Team (Late st Contact Info) Description 12/06/2021 Refill [facility] [address] [place] [id number] Williams Reynaga APRN, KOMAL [address] [address] Medication Refill Social History Tobacco Use Types [...] on file Legal Sex Male 2:13 PM TRANSPLANTER Gender Identity Not on file Sexual Orientation Not on file COVID-19 Exposure Response Date Recorded In the last 10 days, have yo u been in contact with someone who was confirmed or suspected to have Coronavirus/COVID-19? No / Unsure 11/07/2021 8:45 AM CDT documented as of this encounter Miscellaneous Notes * Telephone Encounter - Nloa Rodriguez RN - 12/06/2021 9:01 AM CDT Medication failed the protocol, provider to review and approve the medication order if appropriate. Requested Prescriptions Pending Prescriptions Disp Refills metFORMIN (GLUCOPHAGE) 1000 MG Tablet [Pharmacy Med Name: METFORMIN 1000MG TABLETS] 180 Tablet 1 Sig: TAKE 1 TABLET BY MOUTH TWICE DAILY WITH MEALS Biguanides Protocol Passed - 12/06/2021 6:20 AM Passed - Visit with relevant provider in past 6 months or upcoming 90 days Recent Visits Date Type Provider Dept 11/07/21 Office Visit Williams Reynaga APRN, [facility] 09/27/21 Office Visit Williams Reynaga APRN, [facility] 09/12/21 Procedure Visit [facility]21 Office Visit Williams Reynaag APRN, KOM[facility] 09/01/21 Office Visit Williams Reynaga APRN, K[facility] 07/04/21 Office Visit Williams Reynaga APRN, SEWER AND INSPECTOR [facility] Showing recent visits within past 182 days and meeting all other requirements Future Appointments Date Type Provider Dept 02/20/22 Appointment Williams Reynaga APRN, SEWER AND INSPECTOR [facility] Showing future appointments within next 90 days and meeting all other requirements Passed - HgA1C on record in past 6 months HGB-A1C Date Value Ref Range Status 11/07/2021 5.5 4.0 - 6.0 % Final Passed - GFR on record in past 6 months GFR, EST. Date Value Ref Range Status 11/07/2021 >60 >=60 Final traZODone (DESYREL) 50 MG Tablet [Pharmacy Med Name: TRAZODONE 50MG TABLETS] 30 Tablet 2 Sig: TAKE 1 TABLET BY MOUTH EVERY NIGHT NEEDED FOR SLEEP Serotonin Modulators (6 Month Refill Only) Protocol Failed - 12/06/2021 6:20 AM Failed - Has an encounter in the past 6 months with a depression or anxiety visit diagnosis Failed - Patient has established therapy with Serotonin Modulators for at least 6 months Passed - Visit with relevant provider in past 6 months or upcoming 90 days Recent Visits Date Type Provider Dept 11/07/21 Office Visit Williams Reynaga APRN, CNP [facility] 09/27/21 Office Visit Williams Reynaga APRN, CNP [facility] 09/12/21 Procedure Visit [facility] 09/12/21 Office Visit Williams Reynaga APRN, CNP [facility] 09/01/21 Office Visit Williams Reynaga APRN, CNP [facility] 07/04/21 [facility] Williams [facility] Show[facility] recent visits within past 182 days and meeting all other requirements Future Appointments Date Type Provider Dept 02/20/22 Appointment Williams Reynaga APRN, KOM[facility] Showing future appointments within next 90 days and meeting all other requirements Passed - No PRN Use for Trazodone documented in this encounter Plan of Treatment Upcoming Encounters Date Type Department Care Team (Late st Contact Info) Description 03/30/2025 8:30 AM TRANSPLANTER Office Visit [facility] - Family Medicine - [place] [address] [place] [address] Williams Reynaga APRN, KOMAL [address] [address] documented as of this encounter Visit Diagnoses Diagnosis Primary insomnia Persistent disorder of initiating or maintaining sleep documented in this encounter Additional Health Concerns Infection Onset Date Last Indicated Resolved Time COVID - 19 02/09/2023 02/09/2023 02/19/2023 12:1 6 AM TRANSPLANTER documented as of this encounter Care Teams Pet Nutrition Specialist Relationship Specialty Start Date End Date Williams Reynaga APRN, KOMAL [address] [id number] PCP - General Advanced Practice Nurse 11/26/20 Scottie Myles MD #[address] [address] Consulting Physician Cardiovascular Disease - Cardiology 04/27/22 05/07/24 Alicia Vale III, MD [address] [place] [address] Consulting Physician Urology 05/08/22 documented as of this encounter
--- OUTSIDE RECORDS SUMMARY | 2024-12-15 07:36 | XMS_ITS | Encounter Summary ---
Author Organization [facility] [employer] [facility] , [facility] Address [address] [facility] [place] [address] Phone Care Team Providers Care Downstream Biomanufacturing Technician Name Role Phone RonnellWilliams mcginnis Gary SÁNCHEZ Primary Care Provider [phone] Reason for Visit * Reason Comments Med Refill Encounter Details Date Type Department Care Team (Late st Contact Info) Description 11/28/2020 Refill [email or web address], [address] [place] [address] David Bridges DO [address] [facility] 1 [place] [address] Social History Tobacco Use Types [...] (Late Contact Info) Description 01/27/2025 12:30 PM SKILLED NURSING CASE MANAGER Office Visit [facility], [facility] [address] [facility] [address] [place] [address] David Bridges DO [address] [facility] 1 [place] [address] documented as of this encounter Visit Diagnoses Not on filedocumented in this encounter Care Teams Downstream Biomanufacturing Technician Relationship Specialty Start Date End Date Williams Reynaga APN [address] [place] [phone] PCP - General Nurse Practitioner 12/30/20 documented as of this encounter
--- OUTSIDE RECORDS SUMMARY | 2024-12-15 07:36 | XMS_ITS | Encounter Summary ---
Author Organization [facility] , [facility] Address [address] [place] [address] Phone Care Team Providers Care Supervisor Cold Rolling Name Role Phone RonnellWilliams mcginnis Gary SÁNCHEZ Primary Care Provider [phone] Reason for Visit * Reason Comments Med Refill Encounter Details Date Type Department Care Team (Late st Contact Info) Description 05/20/2022 Refill [facility], [facility] [address] [place] [address] David Bridges DO [address] [address] Social History Tobacco Use Types Packs/Day [...] suspected to have Coronavirus/COVID-19? No / Unsure 05/10/2022 1:10 PM BARBECUE COOK documented as of this encounter Miscellaneous Notes * Telephone Encounter - Jasmyn Grande CMA - 05/22/2022 8:22 AM CST duplicate documented in this encounter Plan of Treatment Upcoming Encounters Date Type Department Care Team (Late st Contact Info) Description 01/27/2025 12:30 PM BARBECUE COOK Office Visit [facility], [facility] [address] [facility] [address] [place] [phone] David Bridges DO [address] [facility] 1 [place] [address] documented as of this encounter Visit Diagnoses Not on filedocumented in this encounter Care Teams Supervisor Cold Rolling Relationship Specialty Start Date End Date Williams Reynaga JOINTER OPERATOR [address] [facility] [address] [place] [address] PCP - General Nurse Practitioner 12/30/20 documented as of this encounter
--- OUTSIDE RECORDS SUMMARY | 2024-12-15 08:33 | XMS_ITS | Clinical Summary ---
Author Organization [facility] Address [address] [place] [address] Phone Care Team Providers Care Car Retarder Operator Name Role Phone Shama Patel NP Unavailable [phone] Jordy Parra MD Primary Care Provider Claribel Valentin MD Unavailable [phone] TinyJacque de luna OD Unavailable [phone] Allergies Active Allergy Reactions Criticality Noted Date Comments Dulaglutide Rash Medium 03/20/2021 Medications blood glucose diagnostic (glucose blood) strip Use to check blood sugar 3 times daily 100 each 5 2 Active pen needle, diabetic (BD Ultra-Fine Short Pen Needle) 31 gauge x 5/16 needle USE EVERY DAY TO FOUR TIMES DAILY DIRECTED 100 each 11 3 Active FreeStyle Tammy 3 Sensor deviceIndication s:Type 2 diabetes mellitus with other circulatory complication, with long-term current use of insulin One sensor every 14 days 2 each 5 Active docusate sodium (Colace) 100 mg capsuleIndicatio ns:constipation Take 1 capsule (100 mg total) by mouth 2 (two) times a day for 14 days 28 capsule 5 Active Narcan 4 mg/actuation spray,non-aeroso l 0 5 Active lisinopriL (PRINIVIL,ZESTRI L) 20 mg tabletIndication s:Hypertension associated with diabetes (HCC) Take 0.5 tablets (10 mg total) by mouth daily 45 tablet 3 5 Active ibuprofen (ADVIL,MOTRIN) 600 mg tablet Take 1 tablet (600 mg total) by mouth every 6 (six) hours as needed for pain 30 tablet 5 Active tirzepatide (Mounjaro) 10 mg/0.5 mL pen injector injectionIndicat ions:Type 2 diabetes mellitus with other circulatory complication, with long-term current use of insulin Inject 0.5 mL (10 mg total) under the skin once a week 2 mL 11 5 Active Active Problems Problem Noted Date Diagnosed Date S/P laparoscopic cholecystectomy 08/05/2024 Establishing care with new doctor, encounter for 05/07/2023 Assessment & Plan (05/07/2023 11:39 AM MARKETING DATA SPECIALIST): A(n) initial visit to establish care has [...] risks vs benefits. Return in 6 months Uncontrolled type 2 diabetes mellitus with hyper glycemia 01/03/2022 Assessment & Plan (04/09/2022 7:57 PM MARKETING DATA SPECIALIST): Labs today. Continue current Toujeo, Humalog, metformin. [...] yr. Assessment & Plan (03/17/2019 10:15 PM MARKETING DATA SPECIALIST): Needs to schedule colonoscopy. Counseled. Assessment & Plan (11/03/2018 9:35 PM CDT): Colonoscopy and GI consult ordered. Type 2 diabetes mellitus with nephropathy 2018 Assessment & Plan (01/03/2022 5:07 PM CDT): Labs as ordered. Continue lisinopril 20. Assessment & Plan (05/15/2021 6:28 PM MARKETING DATA SPECIALIST): Labs today. Continue current lisinopril 20. Assessment [...] worsening. Assessment & Plan (05/04/2018 7:09 PM MARKETING DATA SPECIALIST): Podiatry referral offered has info. Assessment & Plan (07/02/2017 9:32 AM CDT): Great toes bilaterally. Also noted to have linear pattern across instep of bilateral feet. OTC ketocaonzole powder/lotrimin recommended. Class 2 severe obesity due t o excess calories with serious comorbidity and body mass index (BMI) of 37.0 to 37.9 in adult 02/21/2017 Assessment & Plan (02/29/2024 11:47 AM MARKETING DATA SPECIALIST): Chronic, worsening Discussed about healthy lifestyle habits [...] loss Assessment & Plan (05/07/2023 11:43 AM MARKETING DATA SPECIALIST): BMI Follow-up includes: nutrition counseling, exercise counseling, and education provided. Assessment & Plan (01/03/2023 10:36 AM CDT): Chronic, still above goal, slowly improving Counseled on diet and exercise Assessment & Plan (08/21/2022 7:40 PM CDT): Counseled on diet and exercise Assessment & Plan (04/26/2022 12:58 PM MARKETING DATA SPECIALIST): Counseled on diet and exercise Assessment & Plan (04/09/2022 7:56 PM MARKETING DATA SPECIALIST): Worsening. Body mass index is 42.53 kg/m [...] pt. Assessment & Plan (05/10/2021 9:17 AM MARKETING DATA SPECIALIST): Body mass index is 42.38 kg/m . Up 2 lb since ROMEO. Off of trulicity due to rash. He has been limiting carbs, but not counting. Counseled. Assessment & Plan (03/07/2021 5:35 PM MARKETING DATA SPECIALIST): Body mass index is 42.15 kg/m . reports at home he is down 176. Still struggling to determine what he can or cannot be. Has not utilized [employer] Diabetes [employer] website to assist with meal planning. Counseled. Assessment & Plan (02/22/2021 6:36 AM MARKETING DATA SPECIALIST): Wt loss con't 2 lb. Struggling to determine dietary intake appropriate for diabetes. Working with barge pilot. Again given carb intake recommendations for snack/meal/proteins. Assessment & Plan (02/14/2021 7:13 PM MARKETING DATA SPECIALIST): BMI Follow-up includes: nutrition counseling. Body mass [...] risk/benefit. Assessment & Plan (03/17/2019 10:11 PM MARKETING DATA SPECIALIST): Worsening. Recommend healthy varied diet with minimal processed foods, increased amounts of fruits and vegetables and low fat and cholesterol levels-no fried, high fat or high sugar foods. Avoidance of uzbek fried and other fried foods to start. Assessment & Plan (10/28/2018 3:10 PM CDT): Improving. Not eating concentrated sweets. Continue. Assessment & Plan (05/04/2018 7:11 PM MARKETING DATA SPECIALIST): Obesity is worsening. BMI Follow-up includes: nutrition counseling, exercise counseling, education provided and referral to barge pilot. Assessment & Plan (10/31/2017 6:08 PM CDT): Obesity is unchanged. Reports some stress. Is trying to adjust diet. Exercise recommended outside of work. Assessment & Plan (07/02/2017 9:30 AM CDT): Obesity is improving with lifestyle modifications. Lost 11 lb since ROMEO. Encouraged to exercise outside of work. Assessment & Plan (03/28/2017 9:38 AM MARKETING DATA SPECIALIST): RACHEL saxena, my fitness pal reviewed. Instructed to increase physical activity-portions control. Assessment & Plan (02/21/2017 5:42 PM MARKETING DATA SPECIALIST): Obesity is newly identified. walking at work.Portion control discussed. 1800 gregg diet. Informal exercise measures discussed, e.g. taking stairs instead of elevator. Handouts provided. My fitness pal and calorie counter ap discussed-opened in ov. Type 2 diabetes mellitus wit h circulatory disorder, with long-term current use of insulin 03/19/2015 Assessment & Plan (02/29/2024 11:47 AM MARKETING DATA SPECIALIST): Chronic, overall well controlled A1c 4.9% Reviewed [...] weekly Assessment & Plan (04/26/2022 12:59 PM MARKETING DATA SPECIALIST): Chronic, , uncontrolled, worsening A1c 8.3% Counseled [...] months Assessment & Plan (04/09/2022 7:59 PM MARKETING DATA SPECIALIST): Continue Toujeo 20 units q.a.m. 10 units [...] progress. Assessment & Plan (05/15/2021 6:29 PM MARKETING DATA SPECIALIST): Labs today. Continue current toujeo 6 un, sliding scale novolin, and metformin will be changed to er due to continued diarrhea. Stopped GLP1 due to rash at site- true hive. Will discuss with pharmacist to determine cross-believe all in class will cause similar. Assessment & Plan (03/07/2021 5:37 PM MARKETING DATA SPECIALIST): Decreased toujeo from 10 to 5 units [...] antibiotic. Assessment & Plan (02/22/2021 6:35 AM MARKETING DATA SPECIALIST): Improving. Not to goal. Blood sugar into the 260s fbg and lowest 160. Start toujeo 10 un nightly. Con't SSI. Con't metformin and trulicity. Assessment & Plan (02/14/2021 5:10 PM MARKETING DATA SPECIALIST): Newly worsening. Counseled carb should be no [...] unknown. Assessment & Plan (03/17/2019 10:13 PM MARKETING DATA SPECIALIST): Labs today. Continue current. Counseled on need to see eye doctor annually. Declined flu vaccine. Log would be helpful to help manage. Wt Loss recommended. Assessment & Plan (10/28/2018 3:09 PM CDT): A1C 5.1% today. Blood sugar in OV 128. Continue metformin as directed. Continue to monitor. Counseled to acquire eye exam. Assessment & Plan (05/04/2018 7:09 PM MARKETING DATA SPECIALIST): Labs today. Continue current. Reminded to bring [...] mo. Assessment & Plan (03/28/2017 9:39 AM MARKETING DATA SPECIALIST): Need log and A1C. Reordered. Tolerating Metformin well. Diabetes will be reassessed in 3 months. Assessment & Plan (02/21/2017 5:44 PM MARKETING DATA SPECIALIST): Diabetes is newly identified. Reminded to bring in blood sugar diary at next visit. Dietary recommendations for ADA diet. Regular aerobic exercise. Medication changes per orders. barge pilot referral. Diabetes will be reassessed in 1 month. Discussed that may need to have injectable for management to assist with weight loss. Pt reports that he wants to get off of medication for good. Discussed will need to monitor cals. Hypertension associated with diabetes 03/19/2011 Assessment & Plan (02/29/2024 11:46 AM MARKETING DATA SPECIALIST): Chronic, well controlled Continue lisinopril Assessment & Plan (08/02/2023 11:06 AM CDT): Chronic, well controlled Continue lisinopril Assessment & Plan (01/03/2023 10:35 AM CDT): Chronic, well controlled Continue lisinopril Assessment & Plan (08/21/2022 7:44 PM CDT): Chronic, well controlled Continue lisinopril Assessment & Plan (04/26/2022 12:58 PM MARKETING DATA SPECIALIST): Chronic, well controlled Continue lisinopril Assessment & Plan (04/09/2022 7:56 PM MARKETING DATA SPECIALIST): Controlled. Continue current regimen lisinopril 20. Dietary monitoring of sodium intake discussed. Assessment & Plan (01/03/2022 5:05 PM CDT): Controlled. Continue current regimen lisinopril 20. Labs today. Next Assessment & Plan (07/06/2021 2:17 PM CDT): Controlled. Continue current regimen. Assessment & Plan (05/10/2021 9:18 AM MARKETING DATA SPECIALIST): Controlled. Continue current regimen of lisinopril 20 mg. Assessment & Plan (03/07/2021 5:35 PM MARKETING DATA SPECIALIST): Controlled. Continue current regimen Lisinopril 20 daily. Assessment & Plan (02/22/2021 6:34 AM MARKETING DATA SPECIALIST): 110/74 repeat. Did not eat today. He has been drinking fluids-but he has been drinking fluids. Continue current regimen. Assessment & Plan (02/14/2021 5:11 PM MARKETING DATA SPECIALIST): Controlled. Continue current regimen. Assessment & Plan [...] loss. Assessment & Plan (03/17/2019 10:11 PM MARKETING DATA SPECIALIST): Controlled. Continue current regimen. Con't dietary monitoring. Recommend regular aerobic exercise for at least 150 minutes weekly-preferably 5 x weekly 30 min. Assessment & Plan (10/28/2018 3:09 PM CDT): Controlled. Continue current regimen. Continue to work on weight loss. Assessment & Plan (05/04/2018 7:11 PM MARKETING DATA SPECIALIST): Hypertension is improving with treatment. Dietary sodium [...] mo.. Assessment & Plan (03/28/2017 9:38 AM MARKETING DATA SPECIALIST): Controlled on current lisinopril 20 daily. Labs reordered-he reports he got stuck-no records. Sodium restriction. Exercise. 3 mo f/u. Assessment & Plan (02/21/2017 3:12 PM MARKETING DATA SPECIALIST): Hypertension is newly identified. Dietary sodium restriction. Weight loss. Regular aerobic exercise. Medication changes per orders. Blood pressure will be reassessed in 4 weeks. Resolved Problems Problem Noted Date Diagnosed Date Resolved Date Symptomatic cholelithiasis 06/30/2024 0 08/05/2024 Calculus of gallbladder with chronic cholecystitis without obstruction 06/24/20242024 Assessment & Plan (06/24/2024 9:55 AM CDT): Given the findings of stones, a porcelain gallbladder and symptoms we will set him up for cholecystectomy. We have discussed that is some of his other symptoms such as pain going into the neck and legs likely will not be addressed by removing the gallbladder. We have discussed postoperative lifting restrictions and time needed off work. We have discussed issues such as post cholecystectomy diarrhea. All questions have been answered. Porcelain gallbladder 06/24/20242024 Neck pain, acute 05/28/2022 08/17/2022 Assessment & [...] diclofenac and acetaminophen. Avoid steroids-hyperglycemia was severe. Hyperlipidemia associated wi th type 2 diabetes mellitus 04/26/2022 09/03/2024 Assessment & Plan (02/29/2024 11:46 AM MARKETING DATA SPECIALIST): Patient on statin therapy Tolerating well Assessment & Plan (08/02/2023 11:07 AM CDT): Patient on statin therapy Tolerating well Assessment & Plan (01/03/2023 10:35 AM CDT): Patient on statin therapy Tolerating well Assessment & Plan (08/21/2022 7:40 PM CDT): Patient on statin therapy Tolerating well Assessment & Plan (04/26/2022 12:59 PM MARKETING DATA SPECIALIST): Patient on statin therapy Tolerating well Chronic right shoulder pain 07/06/2021 01/03/2022 Assessment & Plan (07/06/2021 2:18 PM CDT): Ortho referral provided. Right-sided low back pain wi th right-sided sciatica 10/28/2018 06/18/2020 Assessment & Plan (01/11/2020 11:40 PM CDT): Chronic. Previously had surgery. Same side. Is currently taking NSAID daily. May benefit from f/u with ortho. Declining. Counseled to complete HEP. Wt loss. Assessment & Plan (03/17/2019 10:23 PM MARKETING DATA SPECIALIST): Counseled on importance of HEP. Wanting imaging. [...] BACK SURGERY 03/19/2015 - 03/18/2016 Right L5 MOUTH SURGERY GALLBLADDER SURGERY Medical History Medical History Date Comments Diabetes mellitus 4yrs ago Hypertension 10 yrs Disease of tonsils 04/18/2016 Right-sided low back pain with right-sided sciat ica 10/28/2018 Hypercholesteremia Arthritis Allergic rhinitis Irritable bowel syndrome Type 2 diabetes mellitus Sickle cell anemia (HCC) trait Symptomatic cholelithiasis 06/30/2024 Porcelain gallbladder 06/24/2024 Calculus of gallbladder with chronic cholecystitis without obstruction 06/24/2024 Family History Medical History Relation Name Comments Diabetes Brother 1 Clinton Fane Arthritis Brother 2 Valentin Fane Colon cancer Cousin cousin Diabetes Maternal Grandmother Clinton Fane Rheum arthritis Maternal Grandmother Clinton Fane Lung cancer Mother chemo- at 72 Thyroid disease Mother Arthritis Sister 1 Clinton Fane0 Diabetes Sister 1 Clinton Fane0 Hypertension Sister 1 Clinton Fane0 Arthritis Sister 2 Fiona fane Colon cancer Sister 2 Fiona fane Arthritis Sister 3 Fiona fane Relation Name Status Comments Brother 1 Clinton Fane Alive Brother 2 Valentin Fane Alive Cousin Father Maternal Grandfather Maternal Grandmother Clinton Fane Mother Paternal Grandfather Paternal Grandmother Sister 1 Clinton Fane0 Alive Sister 2 Fiona fane Sister 3 Fiona fane Alive Social History Tobacco Use Types Packs/Day Years Used Date Smoking Tobacco: Former Cigarettes 0.8 25.5 0 03/19/1989 - 2013 Vaping Smokeless Tobacco: Former Tobacco Cessation:Counseling Given: Not Answered Alcohol Use Standard Drinks/Week Comments No 0 (1 standard drink = 0.6 oz pur e alcohol) AUDIT-C Answer Date Recorded Q1: How often do you have a drink containing alcohol? Never 07/17/2024 Q2: How many drinks containi ng alcohol do you have on a typical day when you are drinking? Patient does not drink Q3: How often do you have si x or more drinks on one occasion? Never 07/17/2024 PHQ-2 Answer Date Recorded PHQ-2 Total Score (If total score is 3 or more points, staff should administer the PHQ-9) 0 08/04/2024 Personal Safety Answer Date Recorded Have you ever been in or are you currently in a harmful physical or emotional relationship or is someone making you feel afraid or unsafe? Denies 07/25/2024 Sex and Gender Information Value Date Recorded Sex Assigned at Not on file Legal Sex Male 12:47 AM MARKETING DATA SPECIALIST Gender Identity Male 09/22/2019 8:44 AM CDT Sexual Orientation Straight 09/22/2019 8: 44 AM CDT Occupation Industry Job Start Date Job End Date [employer] Not on file Not on file Not on file Obstetrics History Last Filed Vital Signs Vital Sign Reading Time Taken Comments Blood Pressure 118/82 09/03/2024 1:42 PM CDT Pulse 94 09/03/2024 1:42 PM CDT Temperature 36.1 C (97 F) 08/05/2024 8:57 AM CDT Respiratory Rate 16 09/03/2024 1:42 PM CDT Oxygen Saturation 98% 08/05/2024 8:57 AM CDT Inhaled Oxygen Concentration - - Weight 118.8 kg (262 lb) 09/03/2024 1:42 PM CDT Height 177.8 cm (5' 10) 09/03/2024 1:42 PM CDT Body Mass Index 37.59 09/03/2024 1:42 PM CDT Plan of Treatment Health Maintenance Due Date Last Done Comments Hepatitis C Screening 1975 Hepatitis B Screening 12/09/1993 Regular Well Visit/Exam 18-64 01/03/2023 01/03/2022, 06/17/2020, 04/26/2018 Dilated Eye Exam 09/21/2024 09/22/2023, 09/2022, 02/14/2021 Covid-19 Vaccine ( season) 2024 11/11/2020, 10/14/2020 Influenza Vaccine (#1) 2024 02/05/2024, 2016 Albumin Creatinine Ratio, Urine 02/04/2025 02/05/2024, 05/07/2023, 04/05/2022, Additional history exists Lipid Panel 02/04/2025 02/05/2024, 04/19, 04/05/2022, Additional history exists Foot Exam 02/28/2025 02/29/2024, 07/17, 01/03/2023, Additional history exists Hemoglobin A1C 03/05/2025 09/03/2024, 01/17, 11/05/2023, Additional history exists Pneumococcal vaccine <65 (1 of 2 - PCV) 03/18/2025 Postponed from 12/09/1994 (Insurance / Financial) Prostate Cancer Screening-PSA 05/07/2025 05/07/2023, 08/17/2022, 04/05/2022, Additional history exists eGFR 07/25/2025 07/25/2024, 01/17, 05/07/2023, Additional history exists Depression Screening 08/04/2025 08/04/2024, 02/29/2024, 02/05/2024, Additional history exists DTaP/Tdap/Td Vaccine (1 - Tdap) 02/22/2027 02/21/2017 Postponed from 02/22/2017 (Provider's clinical decision) Colon Cancer Screening-Colonoscopy 01/22/2030 01/23/2020 Procedures Procedure Name Priority Date/Time Associated Diagnosis Comments POCT HEMOGLOBIN A1C Routine 09/03/2024 1 :44 PM CDT Type 2 diabetes mellitus with other circulatory complication, with long-term current use of insulin (HCC) EGFR STAT 07/25/2024 8:55 AM CDT LIPID PANEL Routine 02/05/2024 2:12 PM MARKETING DATA SPECIALIST Hypertension associated with diabetes (HCC) ALBUMIN CREATININE RATIO, URINE Routine 02/05/2024 2:12 PM MARKETING DATA SPECIALIST Hyperlipidemia associated with type 2 diabetes mellitus (HCC) Hypertension associated with diabetes (HCC) HM DIABETES EYE EXAM Routine 09/22/2023 7:38 AM CDT PSA SCREEN Routine 05/07/2023 11:53 AM MARKETING DATA SPECIALIST Screening for prostate cancer COLONOSCOPY Routine 01/23/2020 from Last 3 Months or Most Recently Relevant to Health Maintenance Results * POCT hemoglobin A1c (09/03/2024 1:44 PM CDT) Hemoglobin A1C, POC 4.8 4.0 - 5.6 % Blood 09/03/2024 1:44 PM CDT us Claribel Ramirez MD POINT OF CARE TEST ORDERABLES Final Result * eGFR (07/25/2024 8:55 AM CDT) eGFR >90 >=60 mL/min/1. 73 m2 Comment: Interpretive Data [...] interpretive data was last reviewed 2021. Blood 07/25/2024 8:55 AM CDT 07/25/2024 9:29 AM CDT us Danilo Bahena MD LAB BLOOD ORDERA BLES Final Result [facility] Department of Laboratories [place], [place] [id number] * (ABNORMAL) Albumin Creatinine Ratio, Urine (02/05/2024 2:12 PM MARKETING DATA SPECIALIST) Albumin Ur 36.0 mg/L Comment: Interpretive Data No reference range established. Current interpretive data was last revised 2018. Creatinine Ur 49.0 mg/dL [facility] [place] Comment: Interpretive Data No reference range established. Current interpretive data was last revised 2018. Albumin Creatinine Ratio, Ur 73(H) 1 - 29 mg/g [facility] [place] Urine 02/05/2024 2:12 PM MARKETING DATA SPECIALIST 02/05/2024 9:22 PM MARKETING DATA SPECIALIST us Jordy Parra MD LAB URINE ORDERABLES Final Result [facility] [place] [address] Department [place] [address] * (ABNORMAL) Lipid panel (02/05/2024 2:12 PM MARKETING DATA SPECIALIST) Cholesterol 74 30 - 199 mg/dL Comment: [...] NCEP Expert Panel. Circulation 2004;110:227 3. Kelton M et al. JENS Cardiol. 2019July 17;5(5):540-548. doi: [...] 2 [facility] [place] Blood 02/05/2024 2:12 PM MARKETING DATA SPECIALIST 02/05/2024 9:22 PM MARKETING DATA SPECIALIST us Jordy Parra MD LAB BLOOD ORDERABLES Final Result [facility] [place] [address] Department [place] [address] * HM DIABETES EYE EXAM (09/22/2023 7:38 AM CDT) us Historical Provider HEALTH MAINTENANCE Final Result * PSA screen (05/07/2023 11:53 AM MARKETING DATA SPECIALIST) PSA-Total 0.22 ng/mL [facility] [place] Comment: Interpretive [...] revised 21. Blood 05/07/2023 11:5 3 AM MARKETING DATA SPECIALIST 05/07/2023 6:00 PM MARKETING DATA SPECIALIST Jordy Parra MD LAB BLOOD ORDERABLES Final Result [facility] [address] Department [place] [address] * (ABNORMAL) Colonoscopy (01/23/2020) Anatomical Region Laterality Modality Other us Jose Cruz Winn MD ENDOSCOPY PROCEDURES Final Res ult from Last 3 Months or Most Recently Relevant to Health Maintenance Insurance [facility] ACCESS CHOICE ANTHEM ACCESS CHOICE ANTHEM ACCESS CHOICE Care Teams Car Retarder Operator Relationship Specialty Start Date End Date Jordy Parra MD [address] [facility] [address] [place] [address] PCP - General Family Medicine 05/07/23 Shama Patel NP [address] [facility] [address], [place] [address] Family Medicine 02/22/17 [place] [id number] [address] Consulting Physician Endocrinology 05/07/23 Jacque Franks OD [address] [place] [address] Optometry 05/07/23
--- OUTSIDE RECORDS SUMMARY | 2024-12-15 08:33 | XMS_ITS | Clinical Summary ---
Author Organization [facility] Address [address] [place] [address] Care Team Providers Care Granite Countertop Installer Name Role Phone Maximino Weeks Primary Care Provider [phone] Source Comments [facility],non-owned Affiliates and Associated Physician Practices is amultiple site organization consisting of ambulatory clinics and hospital sitesin [place], [place], [place]. This disclosure is being madepursuant to the Care Everywhere program and may not contain all information available regarding this patient. Last updated 17.[facility] Allergies No known active allergies Medications * Be aware that medications may not be up to date on this document. Alwaysverify current medications with the patient. lisinopril (PRINIVIL; ZESTRIL) 20 MG tablet Take 20 mg by mouth once daily [phone](Christy) Active METFORMIN HCL PO Active HYDROcodone-natasha taminophen (HYCET) 7.5-325 MG/15ML solution Take 10-15 mL by mouth every 4 hours as needed for Pain 473 mL 7 Active Active Problems Problem Noted Date Diagnosed Date Disease of tonsils 04/18/2016 Social History Tobacco Use Types Packs/Day Years Used Date Smoking Tobacco: Every Day Comments:vape Alcohol Use Standard Drinks/Week Comments No 0 (1 standard drink = 0.6 oz pur e alcohol) Sex and Gender Information Value Date Recorded Sex Assigned at Not on file Legal Sex Male 5:32 AM APPIAN BPM DEVELOPER Gender Identity Not on file Sexual Orientation Not on file Last Filed Vital Signs Vital Sign Reading Time Taken Comments Blood Pressure 127/82 04/19/2016 10:15 AM APPIAN BPM DEVELOPER Pulse 77 04/19/2016 10:20 AM APPIAN BPM DEVELOPER Temperature 36.8 C (98.3 F) 04/19/2016 8:20 AM APPIAN BPM DEVELOPER Respiratory Rate 18 04/19/2016 9:40 AM APPIAN BPM DEVELOPER Oxygen Saturation 99% 04/19/2016 10: 20 AM APPIAN BPM DEVELOPER Inhaled Oxygen Concentration - - Weight 132.1 kg (291 lb 3.2 oz) 04/19/2016 6:47 AM APPIAN BPM DEVELOPER Height 175.3 cm (5' 9) 04/19/2016 6:47 AM APPIAN BPM DEVELOPER Body Mass Index 43 04/19/2016 6:47 AM APPIAN BPM DEVELOPER Plan of Treatment Health Maintenance Due Date [...] of 3 - 19+ 3-dose series) 12/09/1994 DEPRESSION SCREENING 03/19/2024 COVID-19 VACCINE (1 - 2023-2 5 season) 2024 INFLUENZA VACCINE (#1) 2024 ZOSTER VACCINE (1 of 2) 12/09/2025 HIB [...] patient's age to complete this topic Insurance [employer] Care Teams Granite Countertop Installer Relationship Specialty Start Date End Date Maximino Weeks DO [address] [facility] [address] [place] [id number] PCP - General Internal Medicine 01/19/15
[2024-12-15 08:34] VITALS: BP 142/84; PULSE 87; RESP 16; TEMP 36.4; O2SAT 98
--- OUTSIDE RECORDS SUMMARY | 2024-12-15 08:34 | XMS_ITS | Encounter Summary ---
Author Organization [facility] Address [address] [place] [address] Care Team Providers Care Chili Powder Mixer Name Role Phone Shama Patel NP Unavailable Shama Patel NP Primary Care Provider Kvng Wang MD Primary Care Provider [phone] Jordy Parra MD Primary Care Provider Claribel Valentin MD Unavailable [phone] Jacque Franks OD Unavailable [phone] Encounter Details Date Type Department Care Team (Late st Contact Info) Description 09/22/2019 E-Visit [facility] Phys[facility] [address] [place] [address] Cintia Strickland NP [address] [place] [address] RE: E-Visit Submission: COVID-19 Evaluation Social History [...] on file 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 Gender Identity Male 09/22/2019 8:44 AM CDT [...] COVID: Suspected 02/14/2023 02/14/2023 02/14/2023 2: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 documented as of this encounter Care Teams Chili Powder Mixer Relationship Specialty Start Date End Date Shama Patel, WES [address] [facility] [address] [address] PCP - General Family Medicine 07/02/17 07/19/22 Kvng Wang MD [address] [facility] [address] [address] PCP - General Family Medicine 08/17/22 05/06/23 Jordy Parra MD [address] [facility] [address] [place], [place] [id number] PCP - General Family Medicine 05/07/23 Shama Patel, WES [address] [facility] [address] [address] Family Medicine 02/22/17 [place] [address] [facility] [address] [place] [address] Consulting Physician Endocrinology 05/07/23 Jacque Franks OD [address] [address] Optometry 05/07/23 documented as of this encounter
[2024-12-15] MEDS: diazePAM (*CRX) 5 MG TABLET PO (08:45)
[2024-12-15] MEDS: KETOROLAC 30 MG/ML VIAL (*BKC) IV PUSH (08:45)
[2024-12-15 08:46] VITALS: BP 119/80; PULSE 95; RESP 17; O2SAT 99
[2024-12-15 09:29] LABS: Add Urine Microscopic? YES; Appearance Urine Cloudy (Clear); Glucose Urine UA Negative (Negative); Leukocyte Esterase Ur Negative LEU/UL (Negative); Nitrate Urine Negative (Negative); Non Pathogenic Casts 0-2; Specific Grav Ur 1.013 (1.001-1.035)
--- NOTE | 2024-12-15 10:17 | ED.BACK ---
HPI - Back Pain/Injury General Chief Complaint: Back Pain/Injury Stated Complaint: pain in lower back down to leg Time Seen by Provider: 12/15/24 07:40 Source: patient, RN notes reviewed and old records reviewed Mode of arrival: ambulatory Limitations: no limitations History of Present Illness HPI Narrative: This is a 49 year old male with history of chronic back issues who presents for evaluation of low back pain. He states that he develop lower back pain radiating down right leg on Sunday. He states that he has been taking ibuprofen and using heating pad. He reports he was having trouble getting out of bed yesterday and today. He took his brother's hydrocode and oxycodone for her pain today. Related Data Home Medications ?Medication ?Instructions ?Recorded ?Confirmed ?Last Taken ?Type atorvastatin 10 mg tablet 20 mg PO DAILY 02/12/21 02/12/21 Unknown History lisinopril 10 mg tablet 20 mg PO DAILY 02/12/21 02/12/21 Unknown History metformin 1,000 mg tablet 1,000 mg PO BID 02/12/21 02/12/21 Unknown History Allergies Allergy/AdvReac Type Severity Reaction Status Date / Time dulaglutide (From [facility]) Allergy RASH Verified 12/15/24 08:39 [facility] Past Medical History Medical History Diabetes Osteoarthritis of both knees Sleep apnea Gastric reflux Essential hypertension Carpal tunnel syndrome Obesity Hyperglycinemia Diabetes mellitus Surgical History Surgical History (Updated 12/15/24 @ 18:44 by Ysabel Sandoval MD) H/O lumbosacral spine surgery Family History Family History Sibling Carcinoma of colon Social History Social History (Updated 12/15/24 @ 18:45 by Ysabel Sandoval MD) Smoking status: Never smoker Gender identity (if verbalized by the patient): Male Exam Const: General: no acute distress and alert Nutritional Appearance: obese Orientation/consciousness: patient oriented x3 Limitations: no limitations HENMT: Head: normal to inspection Eyes: EOM: EOMs intact bilaterally Chest: Chest palpation & inspection: normal inspection of the chest Resp: Effort & Inspection: normal respiratory effort Auscultation: clear to auscultation bilaterally Cardio: Rate: regular rate Rhythm: regular rhythm Heart sounds: no murmurs GI: GI Palp: Yes Soft to palpation, No Tenderness to palpation present (GI), No Guarding due to palpation present (GI) and No Rigid due to palpation Auscultation: normal bowel sounds Back/Spine/Pelvis: Back: no CVA tenderness Thoracic/Lumbar Spine: paraspinal muscle tenderness Skin: General skin exam: normal color Rashes: no rashes Neuro: General: patient oriented x3, moves all extremities and CN's II-XI intact bilaterally Extrem: General: normal to inspection and no pedal edema Psych: Mental Status: mental status grossly normal Affect: normal affect Attitude: cooperative Course Reevaluation(s) Reevaluation #1: Patient reports he still has pain. I discussed treatment plan with steroids and pain management. HE understands he will need to follow up with PCP Date: 12/15/24 Time: 10:17 Vital Signs Vital signs: Vital Signs Temperature 97.6 F 12/15/24 08:34 Pulse Rate 87 12/15/24 08:34 Respiratory Rate 16 12/15/24 08:34 Blood Pressure 142/84 H 12/15/24 08:34 Pulse Oximetry 98 12/15/24 08:34 Temperature 97.6 F 12/15/24 08:34 Pulse Rate 80 12/15/24 10:43 Respiratory Rate 16 12/15/24 10:43 Blood Pressure 144/88 H 12/15/24 10:43 Pulse Oximetry 97 12/15/24 10:43 MDM - Back Pain/Injury MDM Narrative Medical decision making narrative: Patient presented with lower back pain. UA ordered to assess for urinary cause of his pain. UA is negative for blood or infection. Unlikely kidney stone, UTI, pyelonephritis. Pain seems unlikely AAA BP only marginally high with no abdominal mass felt . Toradol 30 mg IV and valium 5 mg PO given. He does not have leg weakness, numbness, tingling, urinary retention, bowel incontinence or saddle anesthesia. Patient was able to get up out of bed . He did have pain. We discussed outpatient pain management and follow up. Differential Diagnosis Differential diagnosis: Likely lumbar radiculopathy, sciatica, strain of lumbar region, renal colic and pyelonephritis Medical Records Attestation: I reviewed the patient's medical records. Lab Data Attestation: I reviewed the patient's lab results. Labs: Lab Results 12/15/24 Range/Units 09:13 Urine Color Yellow (Yellow) Urine Appearance Cloudy H (Clear) Urine pH 6.0 (5.0-9.0) Ur Specific [place] 1.013 (1.001-1.035) Urine Protein 1+ H (Negative) mg/dL Urine Glucose (UA) Negative (Negative) mg/dL Urine Ketones Negative (Negative) mg/dL Ur Blood (Man) Negative (Negative) Urine Nitrate Negative (Negative) Urine Bilirubin Negative (Negative) Urine Urobilinogen 1.0 (<2.0) mg/dL Leukocyte Esterase Rfl Negative (Negative) [place]/UL Urine RBC 0-2 (0-2) /hpf Urine WBC 0-5 (0-3) /hpf Ur Squamous Epith Cells None seen (Few) /hpf Urine Bacteria None seen /hpf Urine Casts 0-2 Discharge Plan Discharge Clinical Impression: Low back pain Qualifiers: Chronicity: acute Sciatica presence: with sciatica Patient Disposition: Home Condition: Stable Instructions: Acute Low Back Pain (ED), Lumbar Radiculopathy (ED) Additional Instructions: I recommend that you call your primary care provider today to arrange for follow up for pain control if symptoms do not improve Patient Language: Beninese Prescriptions: New methylprednisolone [Medrol (Vincent)] 4 mg tablets,dose pack See Rx Instructions .ROUTE .COMPLEX Qty: 21 0RF Rx Instructions: for 6 days cyclobenzaprine 10 mg tablet 10 mg PO TID PRN (Reason: muscle spasm) Qty: 14 0RF hydrocodone-acetaminophen 5-325 mg tablet 1 tablet PO Q6H PRN (Reason: pain) Qty: 7 0RF No Action prednisone 50 mg tablet 50 mg PO DAILY Qty: 4 0RF ibuprofen 600 mg tablet 600 mg PO TID PRN (Reason: pain) Qty: 30 0RF acetaminophen 500 mg capsule 1,000 mg PO Q6H PRN (Reason: pain) Qty: 30 0RF dicyclomine 10 mg capsule 20 mg PO BID PRN (Reason: abdominal pain) Qty: 20 0RF atorvastatin 10 mg Tablet 20 mg PO DAILY metformin 1,000 mg Tablet 1,000 mg PO BID lisinopril 10 mg Tablet 20 mg PO DAILY ondansetron 4 mg tablet,disintegrating 4 mg PO Q8H PRN (Reason: nausea and vomiting) Qty: 14 0RF ondansetron 4 mg tablet,disintegrating 4 mg PO Q8H PRN (Reason: nausea and vomiting) Qty: 14 0RF dicyclomine 20 mg tablet 20 mg PO BID Qty: 30 0RF Follow-up/Referrals: Aida,Jordy Cochran MD [Primary Care Provider, Unknown] Stand Alone Forms: Work/School Release IP
[2024-12-15 10:43] VITALS: BP 144/88; PULSE 80; RESP 16; O2SAT 97
== END 2024-12-15 10:44 | disposition home or self-care (01) ==
PROVIDERS: Emergency Provider General Practice; PCP Family Medicine
DX: M54.40 Lumbago with sciatica, unspecified side (principal)
CPT/HCPCS: 81001; 96374; 99284; A9270; J1885